=== PATIENT | male | born 1950 | race Caucasian/White ===

== ENCOUNTER 2017-08-31 01:22 | Inpatient (IN) ==
[2017-08-31] MEDS ORDERED: Ondansetron 4 MG/2 ML VIAL IVP ONE (01:41)
[2017-08-31 02:00] LABS: Basophils # 0.1 K/mcL (0.0-0.2); Basophils % 0.7 %; Eosinophils # 0.3 K/mcL (0.0-0.6); Eosinophils % 2.4 %; Hematocrit 35.6 % (37.5-50.1); Hemoglobin 11.7 g/dL (12.9-16.9); Lymphocytes # 0.6 K/mcL (0.6-4.6); Lymphocytes % 5.3 %; Mean Corpuscular HGB Conc 32.9 g/dL (31.6-35.5); Mean Corpuscular Hemoglobin 27.8 pg (28.0-33.3); Mean Corpuscular Volume 84.6 fL (83.0-100.0); Mean Platelet Volume 9.5 fL (9.4-12.4); Monocytes # 1.1 K/mcL (0.0-1.3); Monocytes % 9.8 %; Neutrophils # 9.3 K/mcL (1.6-8.9); Platelet Count 200 K/mcL (140-400); Red Blood Count 4.21 M/mcL (4.19-5.50); Red Cell Distribution Width 13.7 % (11.5-14.5); Segmented Neutrophils % 80.8 %
[2017-08-31 02:02] LABS: Clarity,Urine Cloudy (Clear); Color,Urine Yellow (Yellow)
[2017-08-31 02:03] LABS: Bilirubin,Urine Negative (Negative); Blood,Urine Large (Negative); Glucose,Urine (UA) Normal (Normal); Ketones,Urine Negative (Negative); Leukocyte Esterase,Urine Small (Negative); Nitrite,Urine Negative (Negative); Protein,Urine >=300 mg/dL (Neg-Trace); RBC,Urine TNTC per hpf (0-3); Specific Gravity,Urine 1.018 (1.010-1.025); Squamous Epithelial Cell,Urine Few per lpf (None-Few); Urobilinogen,Urine Normal (Normal); WBC,Urine 15-30 per hpf (0-3)
[2017-08-31 02:04] LABS: Hyaline Casts,Urine None Seen per lpf (None-Few); Mucus,Urine Moderate (Few); Red Blood Cell Casts,Urine Few per lpf (None Seen); Waxy Casts,Urine Few per lpf (None Seen)
[2017-08-31 02:05] LABS: Bacteria,Urine Moderate per hpf (None-Few)
[2017-08-31 02:18] LABS: Albumin 3.5 g/dL (3.5-5.7); Albumin/Globulin Ratio 0.8 (1.1-2.2); Bilirubin,Direct 0.3 mg/dL (0.0-0.2); Bilirubin,Indirect 0.6 mg/dL (0.0-1.2); Bilirubin,Total 0.9 mg/dL (0.3-1.0); Calcium 8.7 mg/dL (8.6-10.3); Globulin 4.4 g/dL (2.4-3.5); Potassium 4.6 mEq/L (3.5-5.1); Total Protein 7.9 g/dL (6.4-8.9)
[2017-08-31] MEDS ORDERED: OXYCODONE Oral CONC 10 MG/0.5 ML ORAL.SYG SL ONE (04:01)
--- NOTE | 2017-08-31 04:28 | Emergency Department Note ---
Disposition Clinical Impression: Acute kidney failure Qualifiers: Acute renal failure type: unspecified Qualified Code(s): N17.9 - Acute kidney failure, unspecified Pneumonia Qualifiers: Pneumonia type: due to unspecified organism Laterality: bilateral Lung location : lower lobe of lung Qualified Code(s): J18.1 - Lobar pneumonia, unspecified organism Disposition: Admitted As Inpatient Condition: Fair Time of Disposition: 06:45 Abdominal Pain HPI - General Chief Complaint: ED Abdominal Pain Stated Complaint: abd pain nausea Time Seen by Provider: 08/31/17 01:40 Source: patient, EMS Nursing Notes Reviewed: Yes Vital Signs Reviewed: Yes - History of Present Illness Pt Subjective Complaint: abdominal pain Onset (ago): day(s) Consistency: Worsening Location: epigastric Pain Scale: 10 Quality: dull Radiation: none Migration to: no migration Worsens with: nothing Context: other (h/o hernia) Associated symptoms: Reports: other (sob). Denies: nausea, vomiting, diarrhea, fever, chills, hematuria Treatments prior to arrival: other (had seen PCP for possible hernia) - Related Data Allergies Allergy/AdvReac Type Severity Reaction Status Date / Time Penicillins AdvReac Hives Verified 08/31/17 01:38 All systems ED: reviewed and negative except as stated. Review of Systems: As Per HPI Constitutional: Denies: fever, chills Eyes: Denies: vision change ENT ED: Denies: throat pain Cardiovascular: Denies: chest pain, palpitations, dyspnea on exertion Respiratory: Reports: cough, dyspnea. Denies: wheezes Gastrointestinal: Reports: as per HPI, constipation. Denies: nausea, vomiting, diarrhea Genitourinary: Denies: urgency, dysuria, frequency, hematuria Musculoskeletal: Denies: back pain, neck pain Integumentary: Denies: rash Neurological: Denies: headache, weakness Psychiatric: Denies: anxiety, depression Endocrine: Denies: fatigue Hematological/Lymphatic: Denies: easy bleeding Allergic/Immunologic: Denies: facial swelling Abdominal Pain PMH - Past Medical History Medical history: Reports: cancer, CHF, COPD, hypertension Psychiatric history: Reports: no psych history - Social History Smoking status: Former smoker Alcohol use: Reports: none Drug use: Reports: none Physical Exam - General Limitations: no limitations General appearance: alert, in no apparent distress - Head Head exam: normocephalic - Eye Eye exam: Present: EOMI, other (left lower ptosis) - ENT ENT exam: mucous membranes moist, other (chronic deformity of left ear) - Expanded ENT Exam Nose exam: negative: rhinorrhea - Neck Neck exam: Present: full ROM - Chest Chest inspection: Present: normal inspection, symmetric chest wall rise - Respiratory Respiratory exam: Present: normal lung sounds bilaterally. Absent: respiratory distress - Cardiovascular Cardiovascular exam: Present: regular rate, normal rhythm - Abdominal Exam Abdominal exam: Present: soft, tenderness Abdominal tenderness: Present: epigastrium - Extremities Exam Extremities exam: Present: normal inspection, full ROM - Back Exam Back exam: Present: full ROM. Absent: CVA tenderness (R), CVA tenderness (L) - Neurological Exam Neurological exam: Present: alert, oriented X3 - Psychiatric Psychiatric exam: Present: normal affect, normal mood - Skin Skin exam: Present: warm, dry, intact, normal color. Absent: rash, cyanosis, diaphoresis Course Course Narrative: Patient is a 67-year-old male that presents with abdominal pain, nausea. He compares it to his hernia pain, but mentions his hernia pain was more right- sided. He mentions he has been evaluated for his abdominal pain by his PCP provider , jamil floyd, last week, and tells me she has plans to follow up with Dr. Wooten in the near future. He mentions his abdominal pain was persisting and inserted to have some shortness of breath which prompted his visit to the emergency department. He mentions he has an intermittent cough, .He mentions it is accompanied some nausea, but denies any vomiting, diarrhea. 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 Workup initiated. Analgesics ordered. - Reevaluation(s) Reevaluation #1: Pt states he feels better after analgesics and antiemetic. Pt is on 02 oxygen here, but not at home. He mentions this is helping his sob. His lab work Consistent with uremia. On discussion with patient again, he denies any known history of kidney disease, urinary symptoms, and does not appear to be altered. Chest x-ray also consistent with pneumonia vs atelectasis. Normal lactic acid. I have ordered blood cultures. Patient discussed with Dr. Bradford, who plan for admission, nephrology consult, and CT scan. Time: 04:28 Reevaluation #2: CT scan shows no evidence of obstruction. Patient discussed with and accepted by hospitalist Dr. Calabrese who agreed with abx, fluids, and requested we all nephrology. He also mentioned he will start bicarb drip. Time: 06:02 - Consultations Consultation #1: Per request of the hospitalist, on-call sider was paged, and I have discussed patient with Dr. Borja. He agreed to see patient later this morning, and was also agreeable for ceftriaxone and azithromycin for antibiotic coverage of pneumonia. Time: 06:12 Vital Signs Temperature 98.1 F 08/31/17 01:27 Pulse Rate 80 08/31/17 01:27 Respiratory Rate 18 08/31/17 01:27 Blood Pressure 138/110 08/31/17 01:27 O2 Sat by Pulse Oximetry 93 08/31/17 01:27 Temperature 98 F 08/31/17 06:28 Pulse Rate 73 08/31/17 03:33 Respiratory Rate 18 08/31/17 06:28 Blood Pressure 134/82 08/31/17 06:28 O2 Sat by Pulse Oximetry 94 08/31/17 03:33 Oxygen Delivery Oxygen Delivery Room Air Abdominal Pain - MDM Narrative Medical decision making narrative: Patient is a 67-year-old that presented with complaint of abdominal pain shortness of breath. He denied any chest pain, diaphoresis or exertional component of his shortness of breath. Chest x-ray is concerning for pneumonia. Additionally workup showed acute kidney failure. Patient is alert and oriented 3. He is not known to have past medical history of renal disease. Blood cultures and lactic acid were ordered. Patient received a dose of ceftriaxone to cover community-acquired pneumonia and possible UTi. Patient was discussed with attending Dr. josé miguel Tinajero who agreed with workup and evaluation and disposition who also had face time with patient. Patient was accepted to hospitalist staff, and also contacted on-call sider who agreed to see patient later today. Chest X-Ray 08/31/17 01:42 IMPRESSION: Bibasilar atelectasis and/or pneumonia. D/ / Gerald Amaral MD / Gerald Amaral MD Interpreting Provider: Gerald Amaral MD Laboratory Tests 08/31/17 08/31/17 08/31/17 01:41 01:41 01:43 WBC 11.5 H RBC 4.21 Hgb 11.7 L Hct 35.6 L MCV 84.6 MCH 27.8 L MCHC 32.9 RDW 13.7 Plt Count 200 MPV 9.5 Immature Gran % 1.0 Seg Neutrophils % 80.8 Lymphocytes % 5.3 Monocytes % 9.8 Eosinophils % 2.4 Basophils % 0.7 Neutrophils # 9.3 H Lymphocytes # 0.6 Monocytes # 1.1 Eosinophils # 0.3 Basophils # 0.1 Sodium 132 L Potassium 4.6 Chloride 98 Carbon Dioxide 18 L BUN 127 H Creatinine 14.78 H Est GFR ( Amer) 4 L Est GFR (Non-Af Amer) 3 L BUN/Creatinine Ratio 9 Glucose 99 Calculated Osmolality 315 H Lactic Acid 0.7 Calcium 8.7 Total Bilirubin 0.9 Direct Bilirubin 0.3 H Indirect Bilirubin 0.6 AST 10 L ALT 10 Alkaline Phosphatase 86 Serum Total Protein 7.9 Albumin 3.5 Globulin 4.4 H Albumin/Globulin Ratio 0.8 L Amylase 35 Lipase 32 Ur Specimen Adequacy Urine Color Urine Clarity Urine pH Ur Specific [employer] Urine Protein Urine Glucose (UA) Urine Ketones Urine Blood Urine Nitrite Urine Bilirubin Urine Urobilinogen Ur Leukocyte Esterase Urine Microscopic RBC Urine Microscopic WBC Ur Squamous Epith Cells Urine Bacteria Hyaline Casts Waxy Casts RBC Casts Urine Mucus Ur Culture Indicated? 08/31/17 01:48 WBC RBC Hgb Hct MCV MCH MCHC RDW Plt Count MPV Immature Gran % Seg Neutrophils % Lymphocytes % Monocytes % Eosinophils % Basophils % Neutrophils # Lymphocytes # Monocytes # Eosinophils # Basophils # Sodium Potassium Chloride Carbon Dioxide BUN Creatinine Est GFR ( Amer) Est GFR (Non-Af Amer) BUN/Creatinine Ratio Glucose Calculated Osmolality Lactic Acid Calcium Total Bilirubin Direct Bilirubin Indirect Bilirubin AST ALT Alkaline Phosphatase Serum Total Protein Albumin Globulin Albumin/Globulin Ratio Amylase Lipase Ur Specimen Adequacy See below A Urine Color Yellow Urine Clarity Cloudy A Urine pH 6.0 Ur Specific [employer] 1.018 Urine Protein >=300 H Urine Glucose (UA) Normal Urine Ketones Negative Urine Blood Large H Urine Nitrite Negative Urine Bilirubin Negative Urine Urobilinogen Normal Ur Leukocyte Esterase Small H Urine Microscopic RBC TNTC H Urine Microscopic WBC 15-30 H Ur Squamous Epith Cells Few Urine Bacteria Moderate H Hyaline Casts None Seen Waxy Casts Few H RBC Casts Few H Urine Mucus Moderate H Ur Culture Indicated? YES A - Lab Data Lab results reviewed: Yes I reviewed the patient's lab results. Result diagrams: 08/31/17 01:41 08/31/17 01:41 Lab Results 08/31/17 08/31/17 08/31/17 Range/Units 01:41 01:41 01:43 WBC 11.5 H (4.3-11.1) K/mcL RBC 4.21 (4.19-5.50) M/mcL Hgb 11.7 L (12.9-16.9) g/dL Hct 35.6 L (37.5-50.1) % MCV 84.6 (83.0-100.0) fL MCH 27.8 L (28.0-33.3) pg MCHC 32.9 (31.6-35.5) g/dL RDW 13.7 (11.5-14.5) % Plt Count 200 (140-400) K/mcL MPV 9.5 (9.4-12.4) fL Immature Gran % 1.0 (0-4) % Seg Neutrophils % 80.8 % Lymphocytes % 5.3 % Monocytes % 9.8 % Eosinophils % 2.4 % Basophils % 0.7 % Neutrophils # 9.3 H (1.6-8.9) K/mcL Lymphocytes # 0.6 (0.6-4.6) K/mcL Monocytes # 1.1 (0.0-1.3) K/mcL Eosinophils # 0.3 (0.0-0.6) K/mcL Basophils # 0.1 (0.0-0.2) K/mcL Sodium 132 L (136-145) mEq/L Potassium 4.6 (3.5-5.1) mEq/L Chloride 98 (98-107) mEq/L Carbon Dioxide 18 L (23-29) mEq/L BUN 127 H (8-23) mg/dL Creatinine 14.78 H (0.70-1.30) mg/dL Est GFR ( Amer) 4 L (> 60) Est GFR (Non-Af Amer) 3 L (> 60) BUN/Creatinine Ratio 9 (6-26) Glucose 99 (70-105) mg/dL Calculated Osmolality 315 H (280-300) Lactic Acid 0.7 (0.5-2.2) mmol/L Calcium 8.7 (8.6-10.3) mg/dL Total Bilirubin 0.9 (0.3-1.0) mg/dL Direct Bilirubin 0.3 H (0.0-0.2) mg/dL Indirect Bilirubin 0.6 (0.0-1.2) mg/dL AST 10 L (13-39) Units/L ALT 10 (7-52) Units/L Alkaline Phosphatase 86 (34-104) Units/L Serum Total Protein 7.9 (6.4-8.9) g/dL Albumin 3.5 (3.5-5.7) g/dL Globulin 4.4 H (2.4-3.5) g/dL Albumin/Globulin Ratio 0.8 L (1.1-2.2) Amylase 35 (29-103) Units/L Lipase 32 (11-82) Units/L Ur Specimen Adequacy Urine Color (Yellow) Urine Clarity (Clear) Urine pH (5.0-8.0) pH Units Ur Specific [employer] (1.010-1.025) Urine Protein (Neg-Trace) mg/dL Urine Glucose (UA) (Normal) mg/dL Urine Ketones (Negative) mg/dL Urine Blood (Negative) Urine Nitrite (Negative) Urine Bilirubin (Negative) Urine Urobilinogen (Normal) mg/dL Ur Leukocyte Esterase (Negative) Urine Microscopic RBC (0-3) per hpf Urine Microscopic WBC (0-3) per hpf Ur Squamous Epith Cells (None-Few) per lpf Urine Bacteria (None-Few) per hpf Hyaline Casts (None-Few) per lpf Waxy Casts (None Seen) per lpf RBC Casts (None Seen) per lpf Urine Mucus (Few) Ur Culture Indicated? (NO) 08/31/17 Range/Units 01:48 WBC (4.3-11.1) K/mcL RBC (4.19-5.50) M/mcL Hgb (12.9-16.9) g/dL Hct (37.5-50.1) % MCV (83.0-100.0) fL MCH (28.0-33.3) pg MCHC (31.6-35.5) g/dL RDW (11.5-14.5) % Plt Count (140-400) K/mcL MPV (9.4-12.4) fL Immature Gran % (0-4) % Seg Neutrophils % % Lymphocytes % % Monocytes % % Eosinophils % % Basophils % % Neutrophils # (1.6-8.9) K/mcL Lymphocytes # (0.6-4.6) K/mcL Monocytes # (0.0-1.3) K/mcL Eosinophils # (0.0-0.6) K/mcL Basophils # (0.0-0.2) K/mcL Sodium (136-145) mEq/L Potassium (3.5-5.1) mEq/L Chloride (98-107) mEq/L Carbon Dioxide (23-29) mEq/L BUN (8-23) mg/dL Creatinine (0.70-1.30) mg/dL Est GFR ( Amer) (> 60) Est GFR (Non-Af Amer) (> 60) BUN/Creatinine Ratio (6-26) Glucose (70-105) mg/dL Calculated Osmolality (280-300) Lactic Acid (0.5-2.2) mmol/L Calcium (8.6-10.3) mg/dL Total Bilirubin (0.3-1.0) mg/dL Direct Bilirubin (0.0-0.2) mg/dL Indirect Bilirubin (0.0-1.2) mg/dL AST (13-39) Units/L ALT (7-52) Units/L Alkaline Phosphatase (34-104) Units/L Serum Total Protein (6.4-8.9) g/dL Albumin (3.5-5.7) g/dL Globulin (2.4-3.5) g/dL Albumin/Globulin Ratio (1.1-2.2) Amylase (29-103) Units/L Lipase (11-82) Units/L Ur Specimen Adequacy See below A Urine Color Yellow (Yellow) Urine Clarity Cloudy A (Clear) Urine pH 6.0 (5.0-8.0) pH Units Ur Specific [employer] 1.018 (1.010-1.025) Urine Protein >=300 H (Neg-Trace) mg/dL Urine Glucose (UA) Normal (Normal) mg/dL Urine Ketones Negative (Negative) mg/dL Urine Blood Large H (Negative) Urine Nitrite Negative (Negative) Urine Bilirubin Negative (Negative) Urine Urobilinogen Normal (Normal) mg/dL Ur Leukocyte Esterase Small H (Negative) Urine Microscopic RBC TNTC H (0-3) per hpf Urine Microscopic WBC 15-30 H (0-3) per hpf Ur Squamous Epith Cells Few (None-Few) per lpf Urine Bacteria Moderate H (None-Few) per hpf Hyaline Casts None Seen (None-Few) per lpf Waxy Casts Few H (None Seen) per lpf RBC Casts Few H (None Seen) per lpf Urine Mucus Moderate H (Few) Ur Culture Indicated? YES A (NO) - Radiology Data Radiology results reviewed: Yes I reviewed the patient's radiology results. Attestation Statement - Attestation Attestation: I have personally performed a face to face evaluation on this patient. I have reviewed and agree with the care plan. History and Exam by me shows: Uremia and acute renal failure in the setting of possible pneumonia. Will avoid nephrotoxic antibiotics. We will obtain blood cultures, consult nephrology, obtain advanced imaging to rule out obstructive causes of renal failure. I spent greater than 35 minutes of critical care time caring for patient suffering from acute renal failure with uremia this was excluding billable procedures.
[2017-08-31] MEDS ORDERED: cefTRIAXone 1,000 MG in Water for inj. (sterile) 20 ML 10 ML IVP ONE (06:28)
[2017-08-31] MEDS ORDERED: Sodium Bicarbonate 75 MEQ in D5% in 0.45% NACL 1,000 ML IVC SCH (06:30)
--- NOTE | 2017-08-31 08:32 | Nephrology Consult Note ---
Date of Encounter: 08/31/17 Time of Encounter: 08:30 Assessment and Plan (1) Acute kidney failure Current Visit: Yes Status: Acute The patient presents with advanced renal failure. He does have a serum creatinine from April 2017 that was 1.4 and it was 1.5 in October 2016. Therefore he does have some underlying chronic kidney disease with what appears to be an acute component. Patient's urinalysis suggests proteinuria as well as hematuria. Therefore, regular disease cannot be ruled out. This may be related to progressive glomerular disease or rapidly progressive glomerular disease. Patient does have some uremic symptoms consisting of nausea and anorexia. CT scan does not suggest any post renal obstructive findings. Evaluation will consist of a renal ultrasound, serologic evaluation for glomerular disease, urine sediment exam, patient may require renal biopsy depending on the urine sediment exam. Patient should be placed on IV fluids to see if this needs any improvement in his renal function. Patient may require dialysis if he fails to improve. Qualifiers: Acute renal failure type: with other specified pathological lesion Qualified Code(s): N17.8 - Other acute kidney failure History of Present Illness - History of Present Illness This is a 67-year-old male who presented to the emergency room with a one-week history of abdominal pain and nausea. Patient was noted to have a creatinine of 14.78. Patient denies any previous history of renal disease. There is one previous creatinine level of 1.6 from May 2016. Patient receives his primary care in [facility]. Therefore no other labs are currently available. Patient denies diabetes. He does have a history of hypertension. He denies any history of hematuria proteinuria or renal stone disease recurring urinary tract infections or difficulty in emptying his bladder. He denies taking nonsteroidal anti-inflammatory agents on a chronic basis. He denies any nocturia or lower extremity swelling. He has had anorexia for the past several weeks. He has had nausea but no vomiting. His abdominal pain has been located in the epigastric area left lower quadrant with radiation to his left shoulder. In the emergency room shows some left perinephric stranding. There is an abdominal aortic aneurysm 4.3 x 4.4 cm. Patient's past medical history significant for skin cancer including melanoma, hypertension, and COPD. Patient is no longer a smoker. Patient denies any family history of renal disease other than renal stone disease. Chest x-ray shows bibasilar atelectasis versus pneumonia. Patient does admit to a chronic cough with occasional white sputum production. He denies any fevers or chills. Past Med Surg Social Fam HX - Past Medical History Medical history: cancer, CHF, COPD, hypertension Psychiatric history: no psych history - Social History Smoking Status: Former smoker Smokeless Tobacco Status: Yes Alcohol use: none Drug use: none Medications and Allergies 3 Allergy/AdvReac Type Severity Reaction Status Date / Time Penicillins AdvReac Hives Verified 08/31/17 01:38 Review of Systems Constitutional: no excessive sweating, no weight loss Eyes: bilateral: blurred vision (patient denies), diplopia (patient denies) Nose, mouth and throat: no dizziness, no headache(s) Cardiovascular: as per HPI, dyspnea on exertion Respiratory: as per HPI, cough, dyspnea, dyspnea on exertion Gastrointestinal: as per HPI, abdominal pain, nausea Genitourinary Male: as per HPI Musculoskeletal: no muscle weakness, no numbness Integumentary: no hirsutism, no striae Neurological: as per HPI Psychiatric: no depression, no difficulty concentrating Endocrine: as per HPI Hematologic/Lymphatic: no easy bruising, no lymphadenopathy Exam - Vital Signs Vital signs: Initial Vital Signs Temp Pulse Resp BP Pulse Ox 98.1 F 80 18 138/110 93 08/31/17 01:27 08/31/17 01:27 08/31/17 01:27 08/31/17 01:27 08/31/17 01:27 Vital Signs - Last 8 Hours Temp Pulse Resp BP Pulse Ox 08/31/17 07:12 97.8 F 83 17 108/96 90 08/31/17 06:28 98 F 18 134/82 - General Appearance Exam: Patient is alert and oriented. He is in no acute distress. Blood pressure is 108/96. Neck is supple. Lungs diminished breath sounds otherwise clear. Heart regular rate and rhythm with a 2/6 systolic ejection murmur. There is no pericardial friction rub. Abdomen shows normal bowel sounds. There is no guarding or rigidity. Lower extremities show no peripheral edema. There has been partial surgical removal of the patient's left ear. Results - Lab Results 08/31/17 01:41 08/31/17 01:41 Most recent lab results Calcium 8.7 mg/dL (8.6-10.3) 08/31/17 01:41 Consult Discharge Plan - Plan Referrals: NONE,PCP [Primary Care Provider] -
[2017-08-31] MEDS: Sodium Bicarbonate 75 MEQ in D5% in 0.45% NACL 1,000 ML IVC SCH ×2 (08:37→20:32)
--- NOTE | 2017-08-31 09:14 | Internal Med History&Physical ---
Date of Encounter: 08/31/17 Time of Encounter: 08:45 Internal Medicine - H&P: HPI Chief complaint: Abdominal pain and decreased UO Admitted From: Emergency Dept Plans for Post Hospital Care: Home History of present illness: Mr. Castillo is a 67 year old man with one week history of left-sided abdominal pain, nausea w/o vomiting and decreased oral intake who presented in the ER overnight. He was found to have ARF with a Cr of 14.78. He has no prior history of renal disease. His CT-Abd/Pelvis shows mild nonspecific perinephric stranding of both kidneys but grater on the left. He denies fevers,chills, disuria, urinary urgency or frequency,b ut appears to have a UTI. Rocephin was started in the ER, but d/c because of PCN allergy. He was c/o mild sob last week and his CXT and the CT scan suggest a possible PNA so Levaquin was started. he's already been seen by nephrology and a plan is forthcoming. His additional comorbid conditions include COPD, obesity and HTN. Past Med Surg Social Fam HX - Past Medical History Medical history: cancer, CHF, COPD, hypertension Psychiatric history: no psych history - Social History Smoking Status: Former smoker Smokeless Tobacco Status: Yes Alcohol use: none Drug use: none - Family History Mother Hx Family Endocrine Disorder: Yes (DM) Internal Medicine - H&P: Meds 3 Allergy/AdvReac Type Severity Reaction Status Date / Time Penicillins AdvReac Hives Verified 08/31/17 01:38 All Systems PM: A 10-system review of systems was performed and is negative for pertinent findings except as documented above in the HPI. - Constitutional Constitutional: anorexia, lethargy, weakness, no chills, no fever(s) - EENT Eyes: no blurry vision, no pain, no photophobia Nose, mouth and throat: no bleeding gums, no dysphagia, no mouth pain - Cardiovascular Cardiovascular ROS IM: no chest pain, no diaphoresis, no dyspnea on exertion, no edema - Respiratory Respiratory: wheezing, no hemoptysis - Gastrointestinal Gastrointestinal: abdominal pain, nausea, no diarrhea, no melena, no vomiting - Genitourinary Genitourinary ROS male: other, no hematuria, no nocturia, no urinary frequency, no urinary urgency Additional comments: Decreased UO - Musculoskeletal Musculoskeletal ROS IM: arthralgias, muscle weakness, myalgias - Integumentary Integumentary IM: no erythema, no rash - Neurological Neurological ROS: no abnormal hearing, no abnormal speech, no disequilibrium, no focal weakness, no paresthesias - Psychiatric Psychiatric: no confusion, no depression - Constitutional Vitals: Temp Pulse Resp BP Pulse Ox 97.8 F 83 17 108/96 90 08/31/17 07:12 08/31/17 07:12 08/31/17 07:12 08/31/17 07:12 08/31/17 07:12 General appearance: Present: A&O X 3, pleasant, no acute distress, answers questions appropriately - Head Head exam: Present: atraumatic, normocephalic - Eye Eye exam: Present: PERRL, conjuntiva pink, sclera anicteric Pupils: Present: PERRL - Neck Neck exam general surgery: Present: trachea midline. Absent: lymphadenopathy - Respiratory Respiratory exam: Present: wheezes. Absent: accessory muscle use, CTAB, rales, rhonchi, stridor - Cardiovascular Cardiovascular exam: Present: RRR, +S1, +S2. Absent: diastolic murmur, gallop, rubs, systolic murmur - GI/Abdominal GI/Abdominal exam: Present: normal bowel sounds, soft, no peritoneal signs. Absent: distended, guarding, rebound, rigid, tenderness - Extremities Exam Extremities exam: Present: warm, radial pulses palpable and symmetrical. Absent : calf tenderness, cyanotic, pedal edema - Neurological Exam Neurological exam: Present: CN II-XII intact, oriented X3, no focal deficits. Absent: pronater drift, facial droop, speech deficit - Psychiatric Psychiatric exam: Present: normal affect, normal mood - Skin Skin exam: Present: dry, intact Internal Med - H&P Results - Labs CBC & Chem 7: 08/31/17 01:41 08/31/17 01:41 - Assessment and plan (1) Acute kidney failure Current Visit: Yes Status: Acute Assessment and plan: Nephrology consulted Renal U/S ordered Multiple labs ordered by nephrology Qualifiers: Acute renal failure type: with other specified pathological lesion Qualified Code(s): N17.8 - Other acute kidney failure (2) COPD (chronic obstructive pulmonary disease) with chronic bronchitis Current Visit: No Status: Chronic Assessment and plan: No acute exacerbation, but mild wheezing on exam. Continue bronchodilators. (3) Essential hypertension Current Visit: No Status: Chronic Assessment and plan: Continue home medications. (4) Obesity (BMI 35.0-39.9 without comorbidity) Current Visit: Yes Status: Acute (5) Obesity (BMI 30-39.9) Current Visit: Yes Status: Acute Assessment and plan: Pursue weight loss after d/c - Time Spent With Patient Total time spent is greater than 50% in coordination of care (as documented) at patient's floor/unit and/or counseling patient: Greater than 35 minutes
[2017-08-31] MEDS ORDERED: Ipratropium/Albuterol Neb 3 ML IH PRN (09:39)
[2017-08-31] MEDS ORDERED: Levofloxacin 750 MG/150 ML 750 MG/150 ML BAG IVPB ONE (10:00)
[2017-08-31 12:58] LABS: Hepatitis A Antibody IgM Nonreactive (Nonreactive); Hepatitis B Core IgM Nonreactive (Nonreactive); Hepatitis B Surface Antigen Nonreactive (Nonreactive); Hepatitis C Virus Antibody Nonreactive (Nonreactive)
[2017-09-01 02:01] LABS: Basophils % 0.4 %; Eosinophils # 0.3 K/mcL (0.0-0.6); Eosinophils % 2.6 %; Hematocrit 28.2 % (37.5-50.1); Immature Granulocytes % 0.8 % (0-4); Lymphocytes # 0.5 K/mcL (0.6-4.6); Lymphocytes % 4.4 %; Mean Corpuscular HGB Conc 32.3 g/dL (31.6-35.5); Mean Corpuscular Hemoglobin 27.2 pg (28.0-33.3); Mean Corpuscular Volume 84.2 fL (83.0-100.0); Mean Platelet Volume 9.7 fL (9.4-12.4); Monocytes # 1.2 K/mcL (0.0-1.3); Monocytes % 10.7 %; Neutrophils # 9.2 K/mcL (1.6-8.9); Platelet Count 165 K/mcL (140-400); Red Blood Count 3.35 M/mcL (4.19-5.50); Red Cell Distribution Width 13.8 % (11.5-14.5); Segmented Neutrophils % 81.1 %
[2017-09-01 02:02] LABS: Hemoglobin 9.1 g/dL (12.9-16.9)
[2017-09-01 02:26] LABS: Alanine Aminotransferase 8 Units/L (7-52); Albumin 2.9 g/dL (3.5-5.7); Albumin/Globulin Ratio 0.8 (1.1-2.2); Alkaline Phosphatase 78 Units/L (34-104); Aspartate Amino Transferase 8 Units/L (13-39); Bilirubin,Total 0.6 mg/dL (0.3-1.0); Blood Urea Nitrogen > 130 mg/dL (8-23); Calcium 7.8 mg/dL (8.6-10.3); Carbon Dioxide 22 mEq/L (23-29); Chloride 94 mEq/L (98-107); Globulin 3.8 g/dL (2.4-3.5); Glucose 119 mg/dL (70-105); Potassium 4.4 mEq/L (3.5-5.1); Sodium 131 mEq/L (136-145); Total Protein 6.7 g/dL (6.4-8.9); eGFR For African Americans 4 (> 60); eGFR For Non-African Americans 3 (> 60)
[2017-09-01] MEDS ORDERED: Sodium Bicarbonate 75 MEQ in D5% in 0.45% NACL 1,000 ML IVC SCH (04:00)
[2017-09-01 08:21] LABS: Complement Component 3 123 mg/dL (88-201)
[2017-09-01] MEDS ORDERED: *HR* Heparin 5,000 UNIT/ML VIAL ONE (09:25)
[2017-09-01] MEDS ORDERED: 0.9 % Sodium Chloride 250 ML IVC PRN (09:28)
[2017-09-01] MEDS ORDERED: *HR* Heparin 10,000 UNIT/10 ML VIAL IV PRN (09:28)
[2017-09-01] MEDS ORDERED: 0.9 % Sodium Chloride 1,000 ML PRIME SCH (09:30)
[2017-09-01] MEDS ORDERED: 0.9 % Sodium Chloride 1,000 ML ONE (09:49)
[2017-09-01 10:04] LABS: INR 1.5; Prothrombin Time 16.4 Seconds (9.4-12.1)
--- NOTE | 2017-09-01 10:38 | Internal Med Progress Note ---
Addendum entered and electronically signed by Padma Wolfe DO 09/01/17 16:50: - Assessment and plan (1) Acute kidney failure Current Visit: Yes Status: Acute Assessment and plan: - SCr 14.78 / eGFR 3 on admission. Per nephrology note, patient has SCr worsen compared to basline SCr ~1.6. - Unknown etiology at this time. Suspected GM given significant proteinuria and hematuria on UA. - CT A/P and retroperitoneal US found no evidence of obstructive uropathy or hydronephrosis. - Viral hepatitis panel negative for hepatitis A, B & C. - Pending EMILI, ANCA, complement. - Nephrology on board and appreciate input. - Patient had temporarily dialysis catheter placed today and nephrology plans to have hemodialysis today. - NPO after midnight for renal biopsy tomorrow. - Avoid nephrotoxin. - Continue to monitor renal function and electrolytes closely. (2) Uremia Current Visit: Yes Status: Suspected Assessment and plan: - With nausea, vomiting and abdominal pain on initial presentation. - Improves as those symptoms being better controlled. (3) Brochiolitis Current Visit: Yes Status: Acute Assessment and plan: - CT A/P on 08/31/17 showed tree-in-bud type infiltrate at the lung bases concerning of an infectious bronchiolitis. - Continue IV levofloxacin (Day 2). Plan to treat for at least 5 days. (4) COPD Current Visit: Yes Status: Chronic Assessment and plan: - Scheduled bronchodilators and supplemental oxygen. No steroid at this time given that may affect renal biopsy result. (5) HTN (hypertension) Current Visit: No Status: Chronic Assessment and plan: - Blood pressure within normal range. Qualifiers: Hypertension type: essential hypertension Qualified Code(s): I10 - Essential (primary) hypertension (6) DVT prophylaxis Current Visit: No Status: Acute Assessment and plan: - Continue EPCD as mechanical DVT prophylaxis. - Constitutional General appearance: Present: cooperative, no acute distress, A&O X 3, answers questions appropriately - Head Head exam: Present: normal inspection - Eye Eye exam: Present: EOMI - Neck Neck exam general surgery: Present: normal inspection, trachea midline - Respiratory Respiratory exam: Present: Diffuse wheezes - Cardiovascular Cardiovascular exam: Present: RRR, +S1, +S2 - GI/Abdominal GI/Abdominal exam: Present: normal bowel sounds, soft. Absent: tenderness - Extremities Exam Extremities exam: Absent: cyanotic, pedal edema - Neurological Exam Neurological exam: Present: alert, no focal deficits. Absent: facial droop, speech deficit - Skin Skin exam: Present: dry, warm Original Note: <Padma Wolfe - Last Filed: 09/01/17 16:47> Date of Encounter: 09/01/17 Time of Encounter: 09:45 - Time Spent With Patient Total time spent is greater than 50% in coordination of care (as documented) at patient's floor/unit and/or counseling patient: - Subjective Interval history: Patient was seen and examined this morning. Patient reports feeling better compared to yesterday and no significant abdominal pain. Patient denies fever, chills, chest pain, nausea, vomiting. Patient does notice reduction in urine output recently. - Constitutional Vitals: Temp Pulse Resp BP Pulse Ox 98.3 F 83 18 132/85 93 09/01/17 08:06 09/01/17 08:06 09/01/17 08:06 09/01/17 08:06 09/01/17 08:06 General appearance: Present: A&O X 3, pleasant, no acute distress, answers questions appropriately Internal Medicine: Result - Labs CBC & Chem 7: 09/01/17 01:41 09/01/17 01:41 Labs: Short CBC 09/01/17 Range/Units 01:41 WBC 11.4 H (4.3-11.1) K/mcL Hgb 9.1 L D (12.9-16.9) g/dL Hct 28.2 L (37.5-50.1) % Plt Count 165 (140-400) K/mcL Neutrophils # 9.2 H (1.6-8.9) K/mcL BMP 09/01/17 01:41 Sodium 131 L Potassium 4.4 Chloride 94 L Carbon Dioxide 22 L BUN > 130 H Creatinine 15.66 H Glucose 119 H Calcium 7.8 L Liver Function 09/01/17 Range/Units 01:41 Total Bilirubin 0.6 (0.3-1.0) mg/dL AST 8 L (13-39) Units/L ALT 8 (7-52) Units/L Alkaline Phosphatase 78 (34-104) Units/L Albumin 2.9 L (3.5-5.7) g/dL - ABG Interpretation ABG results: PT/INR, D-dimer PT 16.4 Seconds (9.4-12.1) H 09/01/17 09:48 - Impressions Impressions Retroperitoneum Ultrasound 08/31/17 15:00 IMPRESSION: No hydronephrosis identified. Findings consistent with a subcentimeter right renal cyst. D/ / Nitin Reese / Nitin Reese Interpreting Provider: Nitin Reese Chest X-Ray 09/01/17 09:27 IMPRESSION: No pneumothorax status post right IJ central venous catheter placement. Stable mild patchy airspace opacities right more than left, which may be on the basis of atelectasis or infiltrates. COPD. D/ / 09/01/2017 09:57:44 Nitin Field MD / kian Interpreting Provider: Nitin Field MD Consult Discharge Plan - Plan Referrals: NONE,PCP [Primary Care Provider] - <Haider Blanca - Last Filed: 09/01/17 18:56> Date of Encounter: 09/01/17 - Assessment and plan (1) Respiratory failure Current Visit: Yes Status: Acute Assessment and plan: Pt currently hypoxic and requiring 8 liters oxygen. Some wheezing noted. Qualifiers: Chronicity: acute Respiratory failure complication: hypoxia Qualified Code(s): J96.01 - Acute respiratory failure with hypoxia (2) Acute kidney failure Current Visit: Yes Status: Acute Qualifiers: Acute renal failure type: with other specified pathological lesion Qualified Code(s): N17.8 - Other acute kidney failure (3) Glomerulonephritis Current Visit: Yes Status: Suspected (4) Bronchiolitis Current Visit: Yes Status: Acute (5) COPD (chronic obstructive pulmonary disease) with chronic bronchitis Current Visit: No Status: Chronic (6) Essential hypertension Current Visit: No Status: Chronic (7) Obesity (BMI 35.0-39.9 without comorbidity) Current Visit: Yes Status: Acute - Time Spent With Patient Total time spent is greater than 50% in coordination of care (as documented) at patient's floor/unit and/or counseling patient: - Constitutional Vitals: Temp Pulse Resp BP Pulse Ox 97.6 F 90 16 135/97 91 09/01/17 15:25 09/01/17 15:25 09/01/17 16:39 09/01/17 15:25 09/01/17 16:39 Internal Medicine: Result - Labs CBC & Chem 7: 09/01/17 01:41 09/01/17 01:41 Labs: Short CBC 09/01/17 Range/Units 01:41 WBC 11.4 H (4.3-11.1) K/mcL Hgb 9.1 L D (12.9-16.9) g/dL Hct 28.2 L (37.5-50.1) % Plt Count 165 (140-400) K/mcL Neutrophils # 9.2 H (1.6-8.9) K/mcL BMP 09/01/17 01:41 Sodium 131 L Potassium 4.4 Chloride 94 L Carbon Dioxide 22 L BUN > 130 H Creatinine 15.66 H Glucose 119 H Calcium 7.8 L Liver Function 09/01/17 Range/Units 01:41 Total Bilirubin 0.6 (0.3-1.0) mg/dL AST 8 L (13-39) Units/L ALT 8 (7-52) Units/L Alkaline Phosphatase 78 (34-104) Units/L Albumin 2.9 L (3.5-5.7) g/dL - ABG Interpretation ABG results: PT/INR, D-dimer PT 16.4 Seconds (9.4-12.1) H 09/01/17 09:48 - Impressions Impressions Guidance Needle Placement Ultrasound 09/01/17 00:00 IMPRESSION: Successful ultrasound and fluoroscopy guided non-tunneled hemodialysis catheter placement. D/ / 09/01/2017 12:22:12 Vivian Dubon MD / [email or web address] Interpreting Provider: Vivian Dubon MD Insertion Non-Tunneled Catheter 09/01/17 00:00 IMPRESSION: Successful ultrasound and fluoroscopy guided non-tunneled hemodialysis catheter placement. D/ / 09/01/2017 12:22:12 Vivian Dubon MD / kian Interpreting Provider: Vivian Dubon MD Chest X-Ray 09/01/17 09:27 IMPRESSION: No pneumothorax status post right IJ central venous catheter placement. Stable mild patchy airspace opacities right more than left, which may be on the basis of atelectasis or infiltrates. COPD. D/ / 09/01/2017 09:57:44 Nitin Field MD / kian Interpreting Provider: Nitin Field MD - Attending Attestation I examined this patient and my medical decision-making was reviewed with the Resident Physician on 09/01/17. I agree with the documented findings, disposition and treatment plan as described except to the extent set forth below. Mr Castillo is currently admitted with acute renal failure most likely due to a glomerulonephritis. He remains high risk due to the potential for worsening clinical status. Mr Castillo is having some wheezing and cough. No fever. Says his throat is sore from "tube." No diarrhea. Still has some abd discomfort he attributes to a hernia. Exam alert Mod distress Mucus membranes dry Heart tachy and regular Lungs with wheeze noted - worse on R Abd soft Edema present I/P 1. Acute renal failure - most likely a GN. Dialysis today. Renal biopsy tomorrow. 2. Bronchiolitis - holding steroids today. May start tomorrow. Supportive care Further diagnoses and plan as above.
[2017-09-01 10:49] LABS: Hepatitis B Surface Antigen Nonreactive (Nonreactive)
[2017-09-01] MEDS ORDERED: Albuterol 2.5 MG/3 ML NEBULIZER IH PRN (10:49)
[2017-09-01] MEDS ORDERED: predniSONE 20 MG TABLET PO SCH (11:00)
--- NOTE | 2017-09-01 11:50 | Nephrology Progress Note ---
Date of Encounter: 09/01/17 Time of Encounter: 11:05 - Assessment and Plan (1) Acute kidney failure Current Visit: Yes Status: Acute JONATAN in setting of GI losses which could be uremic symptoms superimposed on CKD, baseline creat 1.4-1.6. Renal fct worsening, creat 15.66. Could be progressive renal disease, Significant proteinuria and hematuria. Urine sediment was unremarkable per Dr. Borja, no cellular casts. Consider GN or RPGN. Renal biopsy scheduled for tomorrow. Temp HD catheter placed this morning. Will do HD today. Orders given. Renal US unremarkable. Will continue current IV fluids, decrease rate 50cc/hr. No documented urine output yesterday, 80 cc today. Renal workup initiated, labs pending. Will continue to monitor. Avoid nephrotoxins. Qualifiers: Acute renal failure type: with other specified pathological lesion Qualified Code(s): N17.8 - Other acute kidney failure Subjective Interval history: Resting quietly. Admits some shortness of breath. Denies abdominal pain, did eat breakfast. Objective - Vital Signs Vital signs: Vital Signs Temp Pulse Resp BP Pulse Ox 09/01/17 08:06 98.3 F 83 18 132/85 93 09/01/17 03:15 98.7 F 55 17 153/84 97 09/01/17 00:56 98.5 F 71 17 118/55 97 08/31/17 23:57 98.2 F 82 18 148/88 93 08/31/17 19:52 98.1 F 68 18 128/90 93 08/31/17 16:25 98.0 F 71 17 111/75 95 08/31/17 12:08 97.8 F 71 17 119/71 92 Intake and Output 08/31/17 09/01/17 09/01/17 23:59 07:59 15:59 Intake Total 695 / 695 200 / 200 Output Total 80 / 80 Balance 695 / 695 120 / 120 Intake: IV Fluids 575 / 575 Sodium Bicarbonate 75 MEQ In D5 575 / 575 % And 0.45% Nacl 1000 Ml Bag 1, 000 ML @ 125 mls/hr IVC .CONT CHARLI Rx#:[id number] Oral 120 / 120 200 / 200 Output: Urine 80 / 80 Other: Meal Dinner Breakfast Percent of Meal Consumed 10% 45% # Voids 1 # Urine Diapers 1 Weight 109.225 kg Blood Glucose* 106 Patient Weight 09/01/17 23:59 Weight 109.225 kg - General Appearance General appearance: Present: well-developed, well-nourished, appears started age EENT: Present: mucous membranes moist Neck: Present: no JVD Respiratory: Present: wheezing Cardiology: Present: no edema, regular rate, regular rhythm Dialysis Vascular Access: Venous Catheter Gastrointestinal: Present: normoactive bowel sounds, no tenderness Integumentary: Present: warm and dry Neurologic: Present: alert and oriented x3 - Lab 09/01/17 01:41 09/01/17 01:41 Most recent lab results Calcium 7.8 mg/dL (8.6-10.3) L 09/01/17 01:41 Phosphorus 9.1 mg/dL (2.7-4.5) H 08/31/17 09:31 Consult Discharge Plan - Plan Referrals: NONE,PCP [Primary Care Provider] -
--- NOTE | 2017-09-01 11:51 | IR Procedure Note ---
Date of procedure: 09/01/17 Consent Obtained: Verbal consent Timeout: Correct patient and procedure verified, Correct site verified, Time out performed, Skin prep completed Indications: renal failure Procedure Performed: temp HDC Was there an enrichment assistant present: No Site/Technique: rt IJ Results/Findings: adequate placement Estimated blood loss (cc): 0 Complications: None; Tolerated procedure well Post Procedure Treatment Plan: OK to use Specimen: none
[2017-09-01] MEDS: Ipratropium/Albuterol Neb 3 ML IH SCH ×4 (12:24→23:32)
[2017-09-01] MEDS ORDERED: Acetaminophen 325 MG TABLET PO PRN (14:37)
[2017-09-01] MEDS: Sodium Bicarbonate 75 MEQ in D5% in 0.45% NACL 1,000 ML IVC SCH (15:00)
[2017-09-01 15:22] LABS: Complement Component 4 44 mg/dL (10-40)
[2017-09-01 21:33] LABS: Adenovirus Not Detected (Not Detect); Bordetella Pertussis Not Detected (Not Detect); Chlamydophila pneumoniae Not Detected (Not Detect); Coronavirus 229E Not Detected (Not Detect); Coronavirus HKU1 Not Detected (Not Detect); Coronavirus NL63 Not Detected (Not Detect); Coronavirus OC43 Not Detected (Not Detect); Human Metapneumovirus Not Detected (Not Detect); Human Rhinovirus/Enterovirus Not Detected (Not Detect); Influenza A Subtype 2009 H1 Not Detected (Not Detect); Influenza A Untypeable Not Detected (Not Detect); Influenza B Not Detected (Not Detect); Mycoplasma pneumoniae Not Detected (Not Detect); Parainfluenza Virus 1 Not Detected (Not Detect); Parainfluenza Virus 2 Not Detected (Not Detect); Parainfluenza Virus 3 Not Detected (Not Detect); Parainfluenza Virus 4 Not Detected (Not Detect); Respiratory Syncytial Virus Not Detected (Not Detect)
[2017-09-02 04:46] LABS: Hematocrit 25.7 % (37.5-50.1); Hemoglobin 8.3 g/dL (12.9-16.9); Mean Corpuscular HGB Conc 32.3 g/dL (31.6-35.5); Mean Corpuscular Hemoglobin 27.3 pg (28.0-33.3); Mean Corpuscular Volume 84.5 fL (83.0-100.0); Mean Platelet Volume 10.1 fL (9.4-12.4); Platelet Count 186 K/mcL (140-400); Red Blood Count 3.04 M/mcL (4.19-5.50); Red Cell Distribution Width 14.2 % (11.5-14.5)
[2017-09-02 04:57] LABS: INR 1.5
[2017-09-02 05:05] LABS: Calcium 7.3 mg/dL (8.6-10.3); Potassium 4.3 mEq/L (3.5-5.1)
[2017-09-02] MEDS: Ipratropium/Albuterol Neb 3 ML IH SCH ×6 (05:12→23:22)
[2017-09-02] MEDS ORDERED: 0.9 % Sodium Chloride 2,000 ML ONE (07:19)
[2017-09-02] MEDS ORDERED: *HR* Heparin 10,000 UNIT/10 ML VIAL IV PRN (08:59)
[2017-09-02] MEDS ORDERED: 0.9 % Sodium Chloride 250 ML IVC PRN (08:59)
[2017-09-02] MEDS ORDERED: 0.9 % Sodium Chloride 1,000 ML PRIME SCH (09:00)
--- NOTE | 2017-09-02 09:40 | Internal Med Progress Note ---
<Padma Wolfe - Last Filed: 09/02/17 11:23> Date of Encounter: 09/02/17 Time of Encounter: 08:15 - Assessment and plan (1) Acute kidney failure Current Visit: Yes Status: Acute Assessment and plan: - SCr 14.78 / eGFR 3 on admission. Per nephrology note, patient's basline SCr ~ 1.6 in April 2017. - Unknown etiology at this time. Suspected GM given significant proteinuria and hematuria on UA. - CT A/P and retroperitoneal US found no evidence of obstructive uropathy or hydronephrosis. - Viral hepatitis panel negative for hepatitis A, B & C. - Pending EMILI, ANCA, complement. - Nephrology on board and appreciate input. - Patient had temporarily dialysis catheter placed and received hemodialysis on 09/01/17. - Plan to have renal biopsy and more hemodialysis today. - Avoid nephrotoxin. - Continue to monitor renal function and electrolytes closely. Qualifiers: Acute renal failure type: with other specified pathological lesion Qualified Code(s): N17.8 - Other acute kidney failure (2) Uremia Current Visit: Yes Status: Acute Assessment and plan: - With nausea, vomiting, abdominal pain and some degree of confusion on initial presentation. - Improves as patient's mental status improves and abdominal pain, nausea and vomiting resolved. (3) Bronchiolitis Current Visit: Yes Status: Acute Assessment and plan: - CT A/P on 08/31/17 showed tree-in-bud type infiltrate at the lung bases concerning of an infectious bronchiolitis. - Continue IV levofloxacin (Day 3). Plan to treat for at least 5 days. (4) COPD (chronic obstructive pulmonary disease) with chronic bronchitis Current Visit: No Status: Chronic Assessment and plan: - Scheduled bronchodilators and supplemental oxygen. - Plan to start steroid once patient has renal biopsy done. (5) Essential hypertension Current Visit: No Status: Chronic Assessment and plan: - Blood pressure within normal range most of time. (6) AAA (abdominal aortic aneurysm) Current Visit: Yes Status: Chronic Assessment and plan: - CT A/P on 08/31/17 found a 4.4 cm infrarenal abdominal aortic aneurysm. - Patient will need follow-up with his PCP after discharge for recommended vascular surgery consult and repeat imaging in 6 months to 1 year. Qualifiers: Presence of rupture: without rupture Qualified Code(s): I71.4 - Abdominal aortic aneurysm, without rupture (7) Lung nodule Current Visit: Yes Status: Acute Assessment and plan: - CT A/P on 08/31/17 found a 5 mm noncalcified left lower lobe pulmonary nodule. - Patient will need follow up with his PCP after discharge for possible need of repeat CT chest in 12 months. (8) DVT prophylaxis Current Visit: Yes Status: Acute Assessment and plan: - Continue EPCD as mechanical DVT prophylaxis. - Time Spent With Patient Total time spent is greater than 50% in coordination of care (as documented) at patient's floor/unit and/or counseling patient: - Subjective Interval history: Patient was seen and examined this morning. Patient reports much feeling better compared to yesterday. Patient denies fever, chills, chest pain, abdominal pain , nausea, vomiting. Patient still has minimal urine output. - Constitutional Vitals: Temp Pulse Resp BP Pulse Ox 98.0 F 90 22 144/72 87 09/02/17 07:08 09/02/17 07:08 09/02/17 07:57 09/02/17 07:08 09/02/17 07:57 General appearance: Present: A&O X 3, pleasant, no acute distress, answers questions appropriately Exam: Patient appears to be more oriented compared to yesterday. - Head Head exam: Present: normal inspection - Eye Eye exam: Present: EOMI - Neck Neck exam general surgery: Present: normal inspection, trachea midline Additional comments: Right IJ temporary HD catheter in place. - Respiratory Respiratory exam: Present: CTAB - Cardiovascular Cardiovascular exam: Present: RRR, +S1, +S2 - GI/Abdominal GI/Abdominal exam: Present: normal bowel sounds, soft. Absent: tenderness - Extremities Exam Extremities exam: Absent: cyanotic, pedal edema - Neurological Exam Neurological exam: Present: alert, no focal deficits. Absent: facial droop, speech deficit - Skin Skin exam: Present: dry, warm Internal Medicine: Result - Labs CBC & Chem 7: 09/02/17 04:00 09/02/17 04:20 Labs: Short CBC 09/02/17 Range/Units 04:00 WBC 8.6 (4.3-11.1) K/mcL Hgb 8.3 L (12.9-16.9) g/dL Hct 25.7 L (37.5-50.1) % Plt Count 186 (140-400) K/mcL BMP 09/02/17 04:20 Sodium 132 L Potassium 4.3 Chloride 92 L Carbon Dioxide 28 BUN 91 H Creatinine 12.63 H Glucose 100 Calcium 7.3 L - ABG Interpretation ABG results: PT/INR, D-dimer PT 16.0 Seconds (9.4-12.1) H 09/02/17 04:20 - Impressions Impressions Guidance Needle Placement Ultrasound 09/01/17 00:00 IMPRESSION: Successful ultrasound and fluoroscopy guided non-tunneled hemodialysis catheter placement. D/ / 09/01/2017 12:22:12 Vivian Dubon MD / kian Interpreting Provider: Vivian Dubon MD Insertion Non-Tunneled Catheter 09/01/17 00:00 IMPRESSION: Successful ultrasound and fluoroscopy guided non-tunneled hemodialysis catheter placement. D/ / 09/01/2017 12:22:12 Vivian Dbuon MD / kian Interpreting Provider: Vivian Dubon MD Chest X-Ray 09/01/17 09:27 IMPRESSION: No pneumothorax status post right IJ central venous catheter placement. Stable mild patchy airspace opacities right more than left, which may be on the basis of atelectasis or infiltrates. COPD. D/ / 09/01/2017 09:57:44 Nitin Field MD / kian Interpreting Provider: Nitin Field MD - VTE Documentation of Mechanical Device: Intermittent pneumatic compression device Consult Discharge Plan - Plan Referrals: NONE,PCP [Primary Care Provider] - <Haider Blanca - Last Filed: 09/02/17 18:00> Date of Encounter: 09/02/17 - Assessment and plan (1) Respiratory failure Current Visit: Yes Status: Acute Qualifiers: Chronicity: acute Respiratory failure complication: hypoxia Qualified Code(s): J96.01 - Acute respiratory failure with hypoxia (2) Acute kidney failure Current Visit: Yes Status: Acute Qualifiers: Acute renal failure type: with other specified pathological lesion Qualified Code(s): N17.8 - Other acute kidney failure (3) Glomerulonephritis Current Visit: Yes Status: Suspected (4) Bronchiolitis Current Visit: Yes Status: Acute (5) COPD (chronic obstructive pulmonary disease) with chronic bronchitis Current Visit: No Status: Chronic (6) Essential hypertension Current Visit: No Status: Chronic (7) Obesity (BMI 35.0-39.9 without comorbidity) Current Visit: Yes Status: Acute - Time Spent With Patient Total time spent is greater than 50% in coordination of care (as documented) at patient's floor/unit and/or counseling patient: - Constitutional Vitals: Temp Pulse Resp BP Pulse Ox 98.4 F 94 22 129/74 89 09/02/17 15:58 09/02/17 15:58 09/02/17 16:15 09/02/17 15:58 09/02/17 16:15 Internal Medicine: Result - Labs CBC & Chem 7: 09/02/17 04:00 09/02/17 04:20 Labs: Short CBC 09/02/17 Range/Units 04:00 WBC 8.6 (4.3-11.1) K/mcL Hgb 8.3 L (12.9-16.9) g/dL Hct 25.7 L (37.5-50.1) % Plt Count 186 (140-400) K/mcL BMP 09/02/17 04:20 Sodium 132 L Potassium 4.3 Chloride 92 L Carbon Dioxide 28 BUN 91 H Creatinine 12.63 H Glucose 100 Calcium 7.3 L - ABG Interpretation ABG results: PT/INR, D-dimer PT 16.0 Seconds (9.4-12.1) H 09/02/17 04:20 - Impressions Impressions Renal Biopsy CT 09/02/17 00:00 IMPRESSION: Successful CT guided random kidney core needle biopsy. D/ / Vladimir Cooper MD / Vladimir Cooper MD Interpreting Provider: Vladimir Cooper MD - Attending Attestation I examined this patient and my medical decision-making was reviewed with the Resident Physician on 09/02/17. I agree with the documented findings, disposition and treatment plan as described except to the extent set forth below. Mr Castillo is currently admitted for acute renal failure presumed due to GN. He is to have renal biopsy today. He remains moderate to high risk due to potential for worsening clinical status. Mr Castillo appears to be feeling better today. He is feeling less abd pain. No fever or chills. Less dyspnea though still on 8 liters. No GI issues. Exam Alert Comfortable Mucus membranes dry Heart reg Scant wheeze noted Abd soft I/P 1. ARF 2. Probable GN. Further diagnoses and plan as above.
[2017-09-02] MEDS: Sodium Bicarbonate 75 MEQ in D5% in 0.45% NACL 1,000 ML IVC SCH (09:42)
--- NOTE | 2017-09-02 09:49 | Nephrology Progress Note ---
Date of Encounter: 09/02/17 Time of Encounter: 08:30 - Assessment and Plan (1) Acute kidney failure Current Visit: Yes Status: Acute JONATAN in setting of GI losses which could be uremic symptoms superimposed on CKD, baseline creat 1.4-1.6. Could be progressive renal disease, Significant proteinuria and hematuria. Urine sediment was unremarkable per Dr. Borja, no cellular casts. Consider GN or RPGN. Renal biopsy scheduled for today. Temp HD catheter placed, dialyzed yesterday. HD again today, orders given. Renal US unremarkable. Will continue current IV fluids, decrease rate 50cc/hr. No documented urine output 130cc. Renal workup initiated, labs pending. Will continue to monitor. Avoid nephrotoxins. Qualifiers: Acute renal failure type: with other specified pathological lesion Qualified Code(s): N17.8 - Other acute kidney failure Subjective Interval history: Resting quietly. Admits some shortness of breath. NPO for renal biopsy. Objective - Vital Signs Vital signs: Vital Signs Temp Pulse Resp BP Pulse Ox 09/02/17 07:57 22 87 09/02/17 07:49 90 09/02/17 07:08 98.0 F 90 14 144/72 95 09/02/17 05:12 20 92 09/02/17 04:03 98.0 F 82 14 150/83 90 09/02/17 00:00 17 93 09/01/17 23:47 98.2 F 79 16 142/79 92 09/01/17 20:45 98.7 F 87 14 138/73 91 09/01/17 20:03 17 135/97 91 09/01/17 19:35 90 09/01/17 16:39 16 91 09/01/17 15:25 97.6 F 90 20 135/97 90 09/01/17 14:35 97.8 F 20 130/84 09/01/17 14:20 121/80 09/01/17 14:05 126/73 09/01/17 13:50 128/77 09/01/17 13:35 112/70 09/01/17 13:20 115/77 09/01/17 13:05 120/74 09/01/17 12:50 132/74 09/01/17 12:35 119/75 09/01/17 12:20 97.4 F L 18 147/79 Intake and Output 09/01/17 09/02/17 09/02/17 23:59 07:59 15:59 Intake Total 120 / 120 0 / 0 Output Total 50 / 50 0 / 0 Balance 70 / 70 0 / 0 Intake: Oral 120 / 120 0 / 0 Output: Urine 50 / 50 0 / 0 Other: Meal Dinner Percent of Meal Consumed 10% Weight 109.2 kg Blood Glucose* 105 Patient Weight 09/02/17 23:59 Weight 109.2 kg - General Appearance General appearance: Present: well-developed, well-nourished, appears started age , obese EENT: Present: mucous membranes moist Neck: Present: no JVD Additional Comments: diminished Cardiology: Present: edema, irregular rhythm Additional Comments: trace pitting Gastrointestinal: Present: normoactive bowel sounds Integumentary: Present: warm and dry Neurologic: Present: alert and oriented x3 - Lab 09/02/17 04:00 09/02/17 04:20 Most recent lab results Calcium 7.3 mg/dL (8.6-10.3) L 09/02/17 04:20 Phosphorus 9.1 mg/dL (2.7-4.5) H 08/31/17 09:31 - VTE Documentation of Mechanical Device: Intermittent pneumatic compression device Consult Discharge Plan - Plan Referrals: NONE,PCP [Primary Care Provider] -
[2017-09-02] MEDS ORDERED: Levofloxacin 500 MG/100 ML 500 MG/100 ML BAG IVPB SCH (10:00)
[2017-09-02] MEDS ORDERED: *HR* Midazolam HCl 2 MG/2 ML VIAL IVP ONE (14:51)
[2017-09-02] MEDS ORDERED: *HR* FentaNYL (PF) 100 MCG/2 ML VIAL IVP ONE (14:51)
[2017-09-02 14:52] LABS: Myeloperoxidase Ab 2 AU/mL (0-19); Serine Protease-3 Antibody 533 AU/mL (0-19)
--- NOTE | 2017-09-02 15:31 | IR Procedure Note ---
Date of procedure: 09/02/17 Consent Obtained: Verbal consent, Written consent Timeout: Correct patient and procedure verified, Correct site verified, Time out performed, Skin prep completed Local anesthetic: Lidocaine 1% Indications: Renal failure Procedure Performed: Random kidney biopsy Was there an therapeutic assistant present: No Site/Technique: CT guided random kidney biopsy Results/Findings: 6 18 gauge core needle biopsies Estimated blood loss (cc): 3 Complications: None; Tolerated procedure well Post Procedure Treatment Plan: Bedrest x2 hours Specimen: 6 18 gauge biopsies
[2017-09-02] MEDS ORDERED: *HR* Phytonadione 5 MG TABLET PO ONE ×2 (18:23→18:45)
[2017-09-02 19:26] LABS: Hematocrit 26.1 % (37.5-50.1); Hemoglobin 8.4 g/dL (12.9-16.9)
[2017-09-02] MEDS: methylPREDNISolone 250 MG in 0.9 % Sodium Chloride 50 ML IVPB SCH (19:53)
[2017-09-03] MEDS: methylPREDNISolone 250 MG in 0.9 % Sodium Chloride 50 ML IVPB SCH ×3 (00:27→14:03)
[2017-09-03] MEDS: Ipratropium/Albuterol Neb 3 ML IH SCH ×4 (03:51→15:35)
[2017-09-03 04:25] LABS: Hematocrit 26.5 % (37.5-50.1); Hemoglobin 8.3 g/dL (12.9-16.9); Mean Corpuscular HGB Conc 31.3 g/dL (31.6-35.5); Mean Corpuscular Hemoglobin 27.4 pg (28.0-33.3); Mean Corpuscular Volume 87.5 fL (83.0-100.0); Mean Platelet Volume 9.7 fL (9.4-12.4); Platelet Count 198 K/mcL (140-400); Red Blood Count 3.03 M/mcL (4.19-5.50); Red Cell Distribution Width 14.1 % (11.5-14.5)
[2017-09-03 04:44] LABS: Calcium 7.7 mg/dL (8.6-10.3); Potassium 4.4 mEq/L (3.5-5.1)
[2017-09-03] MEDS: Sodium Bicarbonate 75 MEQ in D5% in 0.45% NACL 1,000 ML IVC SCH (08:43)
[2017-09-03] MEDS ORDERED: Sennosides/Docusate Sodium TABLET PO PRN ×2 (09:06→17:53)
--- NOTE | 2017-09-03 09:34 | Nephrology Progress Note ---
Date of Encounter: 09/03/17 Time of Encounter: 09:20 - Assessment and Plan (1) Acute kidney failure Current Visit: Yes Status: Acute JONATAN in setting of GI losses which could be uremic symptoms superimposed on CKD, baseline creat 1.4-1.6. Could be progressive renal disease, Significant proteinuria and hematuria. Urine sediment was unremarkable per Dr. Borja, no cellular casts. Consider GN or RPGN. Renal biopsy yesterday, results pending. ANCA positive, started on Solu Medrol. ? Hemoptysis. Will get CT of chest w/o contrast. If suggestive of pulmonary hemorrhage, will need Pulmonary consult [place]. Temp HD catheter placed, dialyzed yesterday. HD again today, orders given. No documented urine output. Renal workup initiated, labs pending. Renal US unremarkable. Will continue to monitor. Avoid nephrotoxins. Qualifiers: Acute renal failure type: with other specified pathological lesion Qualified Code(s): N17.8 - Other acute kidney failure Subjective Interval history: Seen on HD. Patient admits hemoptsis yesterday in ER-small amount. Denies today. Objective - Vital Signs Vital signs: Vital Signs Temp Pulse Resp BP Pulse Ox 09/03/17 09:02 86 09/03/17 08:12 97.6 F 82 20 124/70 84 09/03/17 08:10 20 84 09/03/17 04:14 98.6 F 87 20 136/79 90 09/03/17 03:51 17 90 09/02/17 23:24 98.0 F 84 20 124/65 89 09/02/17 23:22 17 89 09/02/17 20:58 18 88 09/02/17 20:32 90 09/02/17 19:09 99.1 F 98 18 113/63 84 09/02/17 16:15 22 89 09/02/17 15:58 98.4 F 94 22 129/74 90 09/02/17 13:20 97.6 F 18 120/84 09/02/17 12:55 120/82 09/02/17 12:40 118/78 09/02/17 12:25 126/78 09/02/17 12:10 145/82 09/02/17 11:55 123/79 09/02/17 11:40 126/71 09/02/17 11:25 132/80 09/02/17 11:10 115/83 09/02/17 10:55 127/77 09/02/17 10:40 127/77 09/02/17 10:25 145/73 09/02/17 10:10 131/78 09/02/17 09:55 97.5 F L 18 13178 Intake and Output 09/02/17 09/03/17 09/03/17 23:59 07:59 15:59 Intake Total 154 / 154 1289 / 1289 290 / 290 Output Total 0 / 0 50 / 50 0 / 0 Balance 154 / 154 1239 / 1239 290 / 290 Intake: IV Fluids 154 / 154 1129 / 1129 Sodium Bicarbonate 75 MEQ In D5 1075 / 1075 % And 0.45% Nacl 1000 Ml Bag 1, 000 ML @ 50 mls/hr IVC .[id number] [facility] Rx#:[id number] Levaquin Premix 500mg/100mL 500 100 / 100 mg In 100 ml @ 100 mls/hr IVPB Q48H [facility] Rx#:[id number] Solu-MEDROL 250 MG In 0.9 % 54 / 54 54 / 54 Sodium Chloride 50 ML @ 108 mls /hr IVPB Q6H [facility] Rx#:[id number] Oral 0 / 0 160 / 160 290 / 290 Output: Urine 0 / 0 50 / 50 0 / 0 Other: Meal Breakfast Percent of Meal Consumed 90% # Voids 0 Weight 107.32 kg Patient Weight 09/03/17 23:59 Weight 107.32 kg - General Appearance General appearance: Present: well-developed, well-nourished, appears started age EENT: Present: mucous membranes moist Neck: Present: no JVD Respiratory: Present: clear Cardiology: Present: no edema, regular rate, regular rhythm Dialysis Vascular Access: Venous Catheter Gastrointestinal: Present: normoactive bowel sounds, no tenderness Integumentary: Present: warm and dry Neurologic: Present: alert and oriented x3 - Lab 09/03/17 04:00 09/03/17 04:00 Most recent lab results Calcium 7.7 mg/dL (8.6-10.3) L 09/03/17 04:00 Phosphorus 9.1 mg/dL (2.7-4.5) H 08/31/17 09:31 - VTE Documentation of Mechanical Device: Intermittent pneumatic compression device Consult Discharge Plan - Plan Referrals: NONE,PCP [Primary Care Provider] -
--- NOTE | 2017-09-03 10:08 | Internal Med Progress Note ---
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 - PR3 (c-ANCA) Ab is highly elevated (533) - Continue high-dose IV Solu-Medrol. Nephrology plans to start cyclophosphamide on Tuesday. - Pulmonology consulted and appreciate further evaluation and recommendation. - Given the potential to deteriorate quickly, will transfer patient to ICU for close monitoring. (2) Acute kidney failure Current Visit: Yes Status: Acute Assessment and plan: - SCr 14.78 / eGFR 3 on admission. Per nephrology note, patient's basline SCr ~ 1.6 in April 2017. - Likely secondary to granulomatosis with polyangiitis. - CT A/P and retroperitoneal US found no evidence of obstructive uropathy or hydronephrosis. - Viral hepatitis panel negative for hepatitis A, B & C. - Patient had temporarily dialysis catheter placed on 09/01/17 and received daily hemodialysis since. - Renal biopsy was done on 09/02/17. Per nephrology, the preliminary pathology report found acute necrotizing crescentic GN. - Avoid nephrotoxin. - Continue to monitor renal function and electrolytes closely. Qualifiers: Acute renal failure type: with other specified pathological lesion Qualified Code(s): N17.8 - Other acute kidney failure (3) Bronchiolitis Current Visit: Yes Status: Acute Assessment and plan: - CT A/P on 08/31/17 showed tree-in-bud type infiltrate at the lung bases concerning of an infectious bronchiolitis. - Continue IV levofloxacin (Day 4). Plan to treat for at least 5 days. (4) COPD (chronic obstructive pulmonary disease) with chronic bronchitis Current Visit: No Status: Chronic Assessment and plan: - Scheduled bronchodilators and supplemental oxygen. - Currently on IV Solu-Medrol. (5) Uremia Current Visit: Yes Status: Resolved Assessment and plan: - With nausea, vomiting, abdominal pain and some degree of confusion on initial presentation. - Improves as patient's mental status improves and abdominal pain, nausea and vomiting resolved. (6) Essential hypertension Current Visit: No Status: Chronic Assessment and plan: - Blood pressure within normal range most of time. (7) AAA (abdominal aortic aneurysm) Current Visit: Yes Status: Chronic Assessment and plan: - CT A/P on 08/31/17 found a 4.4 cm infrarenal abdominal aortic aneurysm. - Patient will need follow-up with his PCP after discharge for recommended vascular surgery consult and repeat imaging in 6 months to 1 year. Qualifiers: Presence of rupture: without rupture Qualified Code(s): I71.4 - Abdominal aortic aneurysm, without rupture (8) Lung nodule Current Visit: Yes Status: Acute Assessment and plan: - CT A/P on 08/31/17 found a 5 mm noncalcified left lower lobe pulmonary nodule. - Patient will need follow up with his PCP after discharge for possible need of repeat CT chest in 12 months. (9) DVT prophylaxis Current Visit: Yes Status: Acute Assessment and plan: - Continue EPCD as mechanical DVT prophylaxis. - Time Spent With Patient Total time spent is greater than 50% in coordination of care (as documented) at patient's floor/unit and/or counseling patient: - Subjective Interval history: Patient was seen and examined this morning. Patient reports feeling well with complaint of chest congestion and difficulty to cough up sputum. Patient denies fever, chills, chest pain, abdominal pain, nausea, vomiting. - Constitutional Vitals: Temp Pulse Resp BP Pulse Ox 97.6 F 82 20 124/70 86 09/03/17 08:12 09/03/17 08:12 09/03/17 08:12 09/03/17 08:12 09/03/17 09:02 General appearance: Present: cooperative, A&O X 3, no acute distress, answers questions appropriately - Head Head exam: Present: normal inspection - Eye Eye exam: Present: EOMI - Neck Neck exam general surgery: Present: normal inspection, trachea midline - Respiratory Respiratory exam: Present: rales - Cardiovascular Cardiovascular exam: Present: RRR, +S1, +S2 - GI/Abdominal GI/Abdominal exam: Present: normal bowel sounds, soft. Absent: tenderness - Extremities Exam Extremities exam: Absent: cyanotic, pedal edema - Neurological Exam Neurological exam: Present: alert, no focal deficits. Absent: facial droop, speech deficit - Skin Skin exam: Present: dry, warm Internal Medicine: Result - Labs CBC & Chem 7: 09/03/17 17:12 09/03/17 04:00 Labs: Short CBC 09/02/17 09/03/17 Range/Units 19:14 04:00 WBC 7.3 (4.3-11.1) K/mcL Hgb 8.4 L 8.3 L (12.9-16.9) g/dL Hct 26.1 L 26.5 L (37.5-50.1) % Plt Count 198 (140-400) K/mcL BMP 09/03/17 04:00 Sodium 133 L Potassium 4.4 Chloride 92 L Carbon Dioxide 29 BUN 51 H Creatinine 8.50 H Glucose 185 H Calcium 7.7 L - ABG Interpretation ABG results: PT/INR, D-dimer PT 16.0 Seconds (9.4-12.1) H 09/02/17 04:20 - Impressions Impressions Renal Biopsy CT 09/02/17 00:00 IMPRESSION: Successful CT guided random kidney core needle biopsy. D/ / Vladimir Cooper MD / Vladimir Cooper MD Interpreting Provider: Vladimir Cooper MD - VTE Documentation of Mechanical Device: Intermittent pneumatic compression device Consult Discharge Plan - Plan Referrals: NONE,PCP [Primary Care Provider] - <Haider Blanca - Last Filed: 09/03/17 19:37> Date of Encounter: 09/03/17 - Assessment and plan (1) Respiratory failure Current Visit: Yes Status: Acute Qualifiers: Chronicity: acute Respiratory failure complication: hypoxia Qualified Code(s): J96.01 - Acute respiratory failure with hypoxia (2) Acute kidney failure Current Visit: Yes Status: Acute Qualifiers: Acute renal failure type: with other specified pathological lesion Qualified Code(s): N17.8 - Other acute kidney failure (3) Glomerulonephritis Current Visit: Yes Status: Suspected (4) Bronchiolitis Current Visit: Yes Status: Acute (5) COPD (chronic obstructive pulmonary disease) with chronic bronchitis Current Visit: No Status: Chronic (6) Essential hypertension Current Visit: No Status: Chronic (7) Obesity (BMI 35.0-39.9 without comorbidity) Current Visit: Yes Status: Acute - Time Spent With Patient Total time spent is greater than 50% in coordination of care (as documented) at patient's floor/unit and/or counseling patient: - Constitutional Vitals: Temp Pulse Resp BP Pulse Ox 98.3 F 78 17 127/72 100 09/03/17 18:00 09/03/17 18:00 09/03/17 18:00 09/03/17 18:00 09/03/17 18:00 Internal Medicine: Result - Labs CBC & Chem 7: 09/03/17 17:12 09/03/17 04:00 Labs: Short CBC 09/03/17 09/03/17 Range/Units 04:00 17:12 WBC 7.3 (4.3-11.1) K/mcL Hgb 8.3 L 8.3 L (12.9-16.9) g/dL Hct 26.5 L 26.1 L (37.5-50.1) % Plt Count 198 (140-400) K/mcL BMP 09/03/17 04:00 Sodium 133 L Potassium 4.4 Chloride 92 L Carbon Dioxide 29 BUN 51 H Creatinine 8.50 H Glucose 185 H Calcium 7.7 L - ABG Interpretation ABG results: PT/INR, D-dimer PT 16.0 Seconds (9.4-12.1) H 09/02/17 04:20 - Impressions Impressions Chest CT 09/03/17 09:24 IMPRESSION: 1. Extensive reticular opacities bilaterally with patchy groundglass and consolidative opacities near the bases, most likely pneumonia superimposed upon severe centrilobular emphysema. Other alveolar processes such as pulmonary hemorrhage could appear similar. Recommend follow-up to resolution. 2. A few solid nodules in the right upper and left lower lobes measure up to 0.7 cm x 0.6 cm. Recommend follow-up chest CT in 3-6 months as below. RECOMMENDATIONS: Fleischner Society guidelines for follow-up and management of incidentally detected pulmonary nodules: Multiple Solid Nodules: Nodule size equals 6-8 mm In a high-risk patient, CT at 3-6 months, then CT at 18-24 months. Radiology 2017 http://pubs.rsna.org/doi/full/10.1148/radiol.[email or web address] D/ / Heriberto Rod MD / Heriberto Rod MD Interpreting Provider: Heriberto Rod MD - Attending Attestation Please see discharge summary of this date.
[2017-09-03] MEDS ORDERED: 0.9 % Sodium Chloride 250 ML IVC PRN ×4 (10:20→17:53)
[2017-09-03] MEDS ORDERED: 0.9 % Sodium Chloride 1,000 ML PRIME SCH ×4 (10:30→17:53)
[2017-09-03 17:23] LABS: Hematocrit 26.1 % (37.5-50.1); Hemoglobin 8.3 g/dL (12.9-16.9)
[2017-09-03] MEDS ORDERED: Albuterol 2.5 MG/3 ML NEBULIZER IH PRN (17:53)
[2017-09-03] MEDS ORDERED: Acetaminophen 325 MG TABLET PO PRN (17:53)
[2017-09-03] MEDS ORDERED: *HR* Heparin 10,000 UNIT/10 ML VIAL IV PRN (17:53)
[2017-09-03] MEDS ORDERED: methylPREDNISolone 250 MG in 0.9 % Sodium Chloride 50 ML IVPB SCH (18:30)
[2017-09-03] MEDS ORDERED: Lacri-Lube 3.5 GM TUBE BOTH EYES PRN (19:22)
--- NOTE | 2017-09-03 19:26 | Discharge Summary ---
<Padma Wolfe - Last Filed: 09/03/17 19:23> Orders not resulted at time of discharge: Pending orders 08/31/17 08:58 Urine Total Protein 24 Hr [UCHEM] Routine 09/02/17 15:15 Miscellaneous Lab Test Routine 09/03/17 19:21 XR KUB [XR] Stat XR chest 1V portable [XR] Stat 09/04/17 04:00 Basic Metabolic Panel AM 0400 Complete Blood Count [HEME] AM 0400 Complete Blood Count w/o Diff [HEME] AM 0400 PT/INR [Prothrombin Time INR] [COAG] AM 0400 09/05/17 04:00 Basic Metabolic Panel AM 0400 Complete Blood Count w/o Diff [HEME] AM 0400 09/06/17 04:00 Basic Metabolic Panel AM 0400 Complete Blood Count w/o Diff [HEME] AM 0400 09/07/17 04:00 Basic Metabolic Panel AM 0400 Complete Blood Count w/o Diff [HEME] AM 0400 09/08/17 04:00 Basic Metabolic Panel AM 0400 Complete Blood Count w/o Diff [HEME] AM 0400 Date of Encounter: 09/03/17 Time of Encounter: 19:00 - Discharge Diagnosis (1) Shiloh's granulomatosis (granulomatosis with polyangiitis) Priority: Primary Status: Acute (2) Acute kidney failure Priority: Primary Status: Acute Qualifiers: Acute renal failure type: with other specified pathological lesion Qualified Code(s): N17.8 - Other acute kidney failure (3) Bronchiolitis Priority: Secondary Status: Acute (4) COPD (chronic obstructive pulmonary disease) with chronic bronchitis Priority: Secondary Status: Chronic (5) Uremia Priority: Secondary Status: Resolved (6) Essential hypertension Priority: Secondary Status: Chronic (7) AAA (abdominal aortic aneurysm) Priority: Secondary Status: Chronic Qualifiers: Presence of rupture: without rupture Qualified Code(s): I71.4 - Abdominal aortic aneurysm, without rupture (8) Lung nodule Priority: Secondary Status: Acute Hospital course: Mr. Castillo is a 67 year old male with PMH of COPD who presented to [place] ED with complaint of nausea, vomiting and abdominal pain. Patient was noted to have Cr 14.78 in ED (compared to baseline Cr at ~1.6 in April 2017). CT A/P found no evidence of obstructive uropathy. Mild nonspecific left greater than right perinephric stranding. Tree-in-bud type infiltrate at the lung bases, consider an infectious bronchiolitis. A 4.4 cm infrarenal abdominal aortic aneurysm and a 5 mm noncalcified left lower lobe pulmonary nodule were also noted. Patient was admitted for acute renal failure on 08/31/17 and started on levofloxacin for bronchiolitis. Right IJ temporary HD catheter was placed on 09/01/17 and patient received daily hemodialysis since. Patient had renal biopsy on 09/02/17 which pathology report showed acute necrotizing crescent GN. PR3 (c-ANCA) Ab came back elevated at 533 and Solu-Medrol 250 mg IV q6H were started on 09/02/17. Patient's mental status, nausea, vomiting and abdominal pain significantly improve since admission. But patient started to develop hemoptysis on 09/02/17 and has progressive hypoxia requiring increase in supplemental oxygen. Chest CT on 09/03/17 found extensive reticular opacities bilaterally with patchy groundglass and consolidative opacities near the bases concerning of diffuse alveolar hemorrhage. Patient was transferred to ICU for close monitoring but also noted have worsening hypoxia and start to develop epistaxis. Given the concern of threatening airway from bleeding, patient was intubated and started on ventilation support. paralegal specialist recommends transfer to tertiary care facility for urgent immunosuppresive therapy. Patient elected to go to [facility] before being intubated. The transfer was arranged and [facility] ICU kindly accepts the patient. Patient will be transferred to ICU once transportation is ready. Discharge discussed with: patient, family - Time Spent with Patient Total time spent providing and/or coordinating discharge services: - Discharge Medications Home Medications: Albuterol Sulfate [Ventolin Hfa] 2 puff IH Q4H 08/31/17 [History] Budesonide [Pulmicort Flexhaler 180mcg] 2 puff IH BID 08/31/17 [History] Metoprolol [Lopressor] 25 mg PO BID 08/31/17 [History] Triamterene/HCTZ 37.5/25mg [Dyazide] 1 each PO DAILY 08/31/17 [History] Allergies/Adverse Reactions: 3 Allergy/AdvReac Type Severity Reaction Status Date / Time Penicillins AdvReac Hives Verified 08/31/17 01:38 Date of admission: 08/31/17 08:38 Primary care physician: PCP NONE Consults: 09/01/17 08:58 Consult to Interventional Radiology [CONS] Routine Consulting Provider: Radiology Interventional Cols Reason for Consult: temp HD cath, JONATAN creat > 15, Renal biopsy Time Notified: 08:59 Call Completed: Yes 09/01/17 09:30 Consult to Dialysis [CONS] ONCE 09/02/17 09:00 Consult to Dialysis [CONS] ONCE 09/03/17 10:30 Consult to Dialysis [CONS] ONCE 09/03/17 15:10 Consult to Pulmonology [CONS] Routine Consulting Provider: Pulm Crit Care & Sleep Cassandra Reason for Consult: Newly diagnosed Shiloh involving kidney and lungs. CT chest suggests diffuse aveolar hemorrhage. Currently on Solu-Medrol 250 mg q6H. Appreciate pulmonology consult. Call Completed: Yes Discharging clinician: Padma Wolfe Anticipated date of discharge: 09/03/17 - Constitutional Vitals: Temp Pulse Resp BP Pulse Ox 98.3 F 78 17 127/72 100 09/03/17 18:00 09/03/17 18:00 09/03/17 18:00 09/03/17 18:00 09/03/17 18:00 General appearance: Present: cooperative, A&O X 3, no acute distress, answers questions appropriately - Head Head exam: Present: normal inspection - Eye Eye exam: Present: EOMI - Neck Neck exam general surgery: Present: normal inspection, trachea midline - Respiratory Respiratory exam: Present: rales - Cardiovascular Cardiovascular exam: Present: RRR, +S1, +S2 - GI/Abdominal GI/Abdominal exam: Present: normal bowel sounds, soft. Absent: tenderness - Extremities Exam Extremities exam: Absent: cyanotic, pedal edema - Neurological Exam Neurological exam: Present: alert, no focal deficits. Absent: facial droop, speech deficit - Skin Skin exam: Present: dry, warm - Patient Status Disposition: Transfer Other Condition: Fair - Discharge Instructions Follow Up With: NONE,PCP [Primary Care Provider] - - VTE Documentation of Mechanical Device: Intermittent pneumatic compression device <Haider Blanca - Last Filed: 09/03/17 20:04> Orders not resulted at time of discharge: Pending orders 08/31/17 08:58 Urine Total Protein 24 Hr [UCHEM] Routine 09/02/17 15:15 Miscellaneous Lab Test Routine 09/03/17 19:30 Arterial Blood Gas DAILY 09/04/17 04:00 Basic Metabolic Panel AM 0400 Complete Blood Count [HEME] AM 0400 Complete Blood Count w/o Diff [HEME] AM 0400 PT/INR [Prothrombin Time INR] [COAG] AM 0400 09/04/17 19:30 Arterial Blood Gas DAILY 09/05/17 04:00 Basic Metabolic Panel AM 0400 Complete Blood Count w/o Diff [HEME] AM 0400 09/05/17 19:30 Arterial Blood Gas DAILY 09/06/17 04:00 Basic Metabolic Panel AM 0400 Complete Blood Count w/o Diff [HEME] AM 0400 09/06/17 19:30 Arterial Blood Gas DAILY 09/07/17 04:00 Basic Metabolic Panel AM 0400 Complete Blood Count w/o Diff [HEME] AM 0400 09/07/17 19:30 Arterial Blood Gas DAILY 09/08/17 04:00 Basic Metabolic Panel AM 0400 Complete Blood Count w/o Diff [HEME] AM 0400 09/08/17 19:30 Arterial Blood Gas DAILY 09/09/17 19:30 Arterial Blood Gas DAILY 09/10/17 19:30 Arterial Blood Gas DAILY 09/11/17 19:30 Arterial Blood Gas DAILY 09/12/17 19:30 Arterial Blood Gas DAILY Date of Encounter: 09/03/17 - Discharge Diagnosis (1) Respiratory failure Priority: Primary Status: Acute Qualifiers: Chronicity: acute Respiratory failure complication: hypoxia Qualified Code(s): J96.01 - Acute respiratory failure with hypoxia (2) Shiloh's granulomatosis (granulomatosis with polyangiitis) Status: Acute (3) Acute kidney failure Status: Acute Qualifiers: Acute renal failure type: with other specified pathological lesion Qualified Code(s): N17.8 - Other acute kidney failure (4) Glomerulonephritis Priority: Secondary Status: Suspected (5) Bronchiolitis Status: Acute (6) COPD (chronic obstructive pulmonary disease) with chronic bronchitis Status: Chronic (7) Essential hypertension Status: Chronic (8) Obesity (BMI 35.0-39.9 without comorbidity) Priority: Secondary Status: Chronic (9) Pulmonary alveolar hemorrhage Priority: Primary Status: Acute Hospital course: Mr. Castillo is a 67 year old male - Time Spent with Patient Total time spent providing and/or coordinating discharge services: Date of admission: 08/31/17 08:38 Primary care physician: PCP NONE Consults: 09/01/17 08:58 Consult to Interventional Radiology [CONS] Routine Consulting Provider: Radiology Interventional Cols Reason for Consult: temp HD cath, JONATAN creat > 15, Renal biopsy Time Notified: 08:59 Call Completed: Yes 09/01/17 09:30 Consult to Dialysis [CONS] ONCE 09/02/17 09:00 Consult to Dialysis [CONS] ONCE 09/03/17 10:30 Consult to Dialysis [CONS] ONCE 09/03/17 15:10 Consult to Pulmonology [CONS] Routine Consulting Provider: Pulm Crit Care & Sleep Cassandra Reason for Consult: Newly diagnosed Shiloh involving kidney and lungs. CT chest suggests diffuse aveolar hemorrhage. Currently on Solu-Medrol 250 mg q6H. Appreciate pulmonology consult. Call Completed: Yes - Constitutional Vitals: Temp Pulse Resp BP Pulse Ox 98.3 F 78 17 127/72 100 09/03/17 18:00 09/03/17 18:00 09/03/17 18:00 09/03/17 18:00 09/03/17 18:00 - Attending Attestation I examined this patient and my medical decision-making was reviewed with the Resident Physician on 09/03/17. I agree with the documented findings, disposition and treatment plan as described except to the extent set forth below. Mr Castillo has been admitted for acute renal failure. He was started on dialysis and renal biopsy found necrotizing GN. He developed hemoptysis and CT consistent with DAH. He continued to decline and ultimately was intubated and transferred to [facility] for further care. Exam alert Mucus membranes dry Heart reg Diffuse crackles Plan Transfer to [facility].
--- NOTE | 2017-09-03 19:33 | Event Note ---
<Lowell Lord - Last Filed: 09/03/17 19:30> Date of Encounter: 09/03/17 Time of Encounter: 19:30 Procedures: General Surgery - Intubation Time out performed: Yes Sedative: Etomidate Mg given: 20 Paralytic: Succinylcholine Mg given: 200 Laryngoscope: Saige ET tube size: 7.5 ET tube uncuffed: No Tube secured depth (cm): 23 Tube secured location: lips Tube placement confirmation: visualized tube passing through cords, equal breath sounds bilaterally, no breath sounds over epigastrium, confirmation by capnometry Patient tolerated procedure: other (on initial attempt, patient aspirated, tolerated well on second attempt.) Intubation complications: none Follow up chest x-ray: Yes (distal end of tube terminates at the micheline) <Haider Blanca - Last Filed: 09/03/17 19:46> Date of Encounter: 09/03/17 I was present for the entire procedure.
[2017-09-03] MEDS ORDERED: Lacri-Lube 3.5 GM TUBE BOTH EYES SCH (20:00)
[2017-09-03] MEDS ORDERED: Ipratropium/Albuterol Neb 3 ML IH SCH (20:00)
[2017-09-03] MEDS ORDERED: FentaNYL (PF) 1,000 MCG in 0.9 % Sodium Chloride 80 ML IVC SCH (20:00)
[2017-09-03 20:09] VITALS: BP 100/63
[2017-09-03] MEDS ORDERED: *HR* Etomidate 40 MG/20 ML VIAL IVP ONE (20:28)
[2017-09-03] MEDS ORDERED: *HR* Succinylcholine 200 MG/10 ML VIAL IVP ONE ×2 (20:32→21:22)
[2017-09-03] MEDS ORDERED: Chlorhexidine Rinse 15 ML MOUTHWASH MM SCH (21:00)
[2017-09-03] MEDS ORDERED: *HR* Etomidate 20 MG/10 ML AMPUL IVP ONE (21:22)
[2017-09-04] MEDS ORDERED: Pantoprazole 40 MG VIAL IVP SCH (09:00)
[2017-09-04] MEDS ORDERED: Levofloxacin 500 MG/100 ML 500 MG/100 ML BAG IVPB SCH (10:00)
== END 2017-09-03 21:23 | disposition other institution (70) | DRG 682 ==
LOC: 2SOUTHHOLD 01:22 → EMEROO 01:22 → 2SOUTHHOLD 07:15 → SUATTDRO 08:38 → 2ANU 09-02 18:36 → ICNU 09-03 17:50
PROVIDERS: ADMIT Family Medicine; ATTEND Internal Medicine

== ENCOUNTER 2018-03-24 09:48 | Inpatient (IN) ==
[2018-03-24 10:31] LABS: Basophils # 0.1 K/mcL (0.0-0.2); Basophils % 1.1 %; Eosinophils # 0.2 K/mcL (0.0-0.6); Eosinophils % 2.2 %; Hematocrit 30.2 % (37.5-50.1); Hemoglobin 8.8 g/dL (12.9-16.9); Immature Granulocytes % 1.3 % (0-4); Lymphocytes # 1.2 K/mcL (0.6-4.6); Lymphocytes % 12.8 %; Mean Corpuscular HGB Conc 29.1 g/dL (31.6-35.5); Mean Corpuscular Hemoglobin 27.3 pg (28.0-33.3); Mean Corpuscular Volume 93.8 fL (83.0-100.0); Mean Platelet Volume 9.1 fL (9.4-12.4); Monocytes # 0.9 K/mcL (0.0-1.3); Monocytes % 9.9 %; Neutrophils # 6.9 K/mcL (1.6-8.9); Platelet Count 270 K/mcL (140-400); Red Blood Count 3.22 M/mcL (4.19-5.50); Red Cell Distribution Width 16.8 % (11.5-14.5); Segmented Neutrophils % 72.7 %
--- NOTE | 2018-03-24 10:33 | Emergency Department Note ---
Disposition Clinical Impression: HCAP (healthcare-associated pneumonia), Hypoxia Fluid overload Qualifiers: Hypervolemia type: unspecified Qualified Code(s): E87.70 - Fluid overload, unspecified Disposition: Admitted As Inpatient Condition: Fair General Adult HPI - General Chief complaint: ED Shortness of Breath/Dyspnea Stated complaint: Low o2 Time Seen by Provider: 03/24/18 09:51 Source: patient Limitations: no limitations Nursing Notes Reviewed: Yes Vital Signs Reviewed: Yes - History of Present Illness HPI Narrative: 67-year-old male with complex past medical history including end-stage renal disease currently on dialysis receiving it Tuesday, Tuesday, Tuesday presenting to the emergency department with chief complaint of shortness of breath and h ypoxia. Patient states she was seen here approximately a week ago for similar complaints when he had a CT of the chest completed that showed pneumonia. Patient was given a 10 day course of Levaquin and discharged home. Today he went to his physician's office for follow-up and he was hypoxic in the 60% on his 3 L nasal cannula that he is normally on at home. Patient states he has had hemoptysis during this episode of shortness of breath and pneumonia. Patient was following up with pulmonology. Patient denies any fevers, nausea, vomiting or abdominal pain. Denies any chest pain. Pain Scale: 0 - Related Data Home Medications Medication Instructions Recorded Confirmed Albuterol Sulfate [Ventolin Hfa] 2 puff IH Q4H 08/31/17 03/24/18 Metoprolol [Lopressor] 25 mg PO DAILY 08/31/17 03/24/18 Aspirin [Adult Aspirin] 81 mg PO DAILY 03/24/18 03/24/18 Budesonide [Pulmicort Flexhaler 2 puff IH BID 03/24/18 03/24/18 180mcg] Calcium Carbonate 1,300 mg PO DAILY 03/24/18 03/24/18 Cholecalciferol (D-3) [Vitamin D] 1,000 unit PO DAILY 03/24/18 03/24/18 Folic Acid/Vit B Complex and C 1 tab PO DAILY 03/24/18 03/24/18 [Dialyvite Tablet] Sevelamer [Renvela] 1,600 mg PO TID 03/24/18 03/24/18 Tiotropium [Spiriva] 1 puff IH DAILY 03/24/18 03/24/18 Allergies Allergy/AdvReac Type Severity Reaction Status Date / Time Amoxicillin Allergy Rash Verified 03/10/18 13:35 Penicillins AdvReac Hives Verified 08/31/17 01:38 All systems ED: reviewed and negative except as stated. Constitutional: Denies: fever, chills Eyes: Reports: as per HPI ENT ED: Reports: as per HPI Cardiovascular: Denies: chest pain, palpitations Respiratory: Reports: cough, dyspnea, hemoptysis Gastrointestinal: Denies: abdominal pain, nausea, vomiting Genitourinary: Reports: as per HPI Musculoskeletal: Reports: as per HPI Integumentary: Reports: as per HPI Neurological: Denies: weakness, numbness, paresthesias Psychiatric: Reports: as per HPI Endocrine: Reports: as per HPI Hematological/Lymphatic: Reports: as per HPI Allergic/Immunologic: Reports: as per HPI Past Medical History - Past Medical History Attestation: Yes The following information was validated with the patient. Source: patient Medical history: Reports: cancer, CHF, COPD, dialysis, hypertension, renal disease Psychiatric history: Reports: no psych history - Social History Smoking Status: Former smoker Smokeless Tobacco Status: Yes Alcohol use: Reports: none Drug use: Reports: none Physical Exam - General Limitations: no limitations General appearance: alert, in no apparent distress - Head Head exam: atraumatic, normocephalic, normal inspection - Eye Eye exam: Present: normal appearance. Absent: scleral icterus, conjunctival injection - ENT ENT exam: normal exam, mucous membranes moist - Neck Neck exam: Present: normal inspection. Absent: tenderness, meningismus - Chest Chest inspection: Present: normal inspection, symmetric chest wall rise. Absent: tenderness, rash - Respiratory Respiratory exam: Present: other (Decreased breath sounds in the bilateral bases. Rhonchi throughout) - Cardiovascular Cardiovascular exam: Present: regular rate, normal rhythm, normal heart sounds - Abdominal Exam Abdominal exam: Present: soft, Non-Tender. Absent: distention, guarding, rebound - Neurological Exam Neurological exam: Present: alert, oriented X3 - Psychiatric Psychiatric exam: Present: normal affect, normal mood - Skin Skin exam: Present: warm, intact Course Course Narrative: 67-year-old male presenting for shortness of breath. Diagnosed with pneumonia approximately a week and a half ago given Levaquin as an outpatient and was seen today for follow-up and was severely hypoxic around 65% oxygen saturation on his 3 L nasal cannula. Patient continues to have hemoptysis. Patient transferred here for further evaluation. Patient put on oxi mask at 15 L when he first arrived. During the examination he is no longer dyspneic and resting comfortably. Oxygen saturation in the mid to upper 90s. Patient denies any oth er symptoms at this time. He does have a port on the right side of his chest that is clean with no discharge or redness. Patient denies any fevers. He is alert and oriented 3 and hemodynamically stable. This time will obtain basic laboratory analysis along with a chest x-ray. We will provide him with healthcare acquired pneumonia coverage to include vancomycin, cefepime and azithromycin. Patient is allergic to penicillin but states it is only a rash therefore we chose cefepime over Zosyn. Disposition most likely admission but pending results. Patient agrees with this plan. - Reevaluation(s) Reevaluation #1: Patient's laboratory analysis shows chronic kidney disease, chronic anemia, mildly elevated troponin at 0.05 and elevated BNP. Patient's chest x-ray continues to show pneumonia and some fluid overload. At this time will plan to admit the patient for further treatment of his healthcare acquired pneumonia. I spoke with the hospitalist button buttonhole marker Dr. Caruso who agrees to accept the patient at this time. She would like us to also consult nephrology to make them aware of the patient's case. I spoke with the relationship advisor on-call Dr. Friedman who is aware. Patient remains alert and oriented 3 in room in hemodynamically stable. Patient agrees with this plan. Vital Signs Temperature 98.3 F 03/24/18 09:53 Pulse Rate 97 03/24/18 09:53 Respiratory Rate 22 03/24/18 09:53 Blood Pressure 132/79 03/24/18 09:53 O2 Sat by Pulse Oximetry 74 03/24/18 09:53 Temperature 98.3 F 03/24/18 10:01 Pulse Rate 84 03/24/18 12:28 Respiratory Rate 18 03/24/18 12:28 Blood Pressure 176/78 03/24/18 12:28 O2 Sat by Pulse Oximetry 94 03/24/18 12:28 Oxygen Delivery Oxygen Delivery Simple Mask Medical Decision Making - Lab Data Result diagrams: 03/24/18 10:06 03/24/18 10:06 Lab Results 03/24/18 03/24/18 03/24/18 Range/Units 10:06 10:06 10:06 WBC 9.5 (4.3-11.1) K/mcL RBC 3.22 L (4.19-5.50) M/mcL Hgb 8.8 L (12.9-16.9) g/dL Hct 30.2 L (37.5-50.1) % MCV 93.8 (83.0-100.0) fL MCH 27.3 L (28.0-33.3) pg MCHC 29.1 L (31.6-35.5) g/dL RDW 16.8 H (11.5-14.5) % Plt Count 270 (140-400) K/mcL MPV 9.1 L (9.4-12.4) fL Immature Gran % 1.3 (0-4) % Seg Neutrophils % 72.7 % Lymphocytes % 12.8 % Monocytes % 9.9 % Eosinophils % 2.2 % Basophils % 1.1 % Neutrophils # 6.9 (1.6-8.9) K/mcL Lymphocytes # 1.2 (0.6-4.6) K/mcL Monocytes # 0.9 (0.0-1.3) K/mcL Eosinophils # 0.2 (0.0-0.6) K/mcL Basophils # 0.1 (0.0-0.2) K/mcL Sodium 137 (136-145) mEq/L Potassium 4.7 (3.5-5.1) mEq/L Chloride 102 (98-107) mEq/L Carbon Dioxide 23 (23-29) mEq/L BUN 60 H (8-23) mg/dL Creatinine 7.87 H (0.70-1.30) mg/dL Est GFR ( Amer) 8 L (> 60) Est GFR (Non-Af Amer) 7 L (> 60) BUN/Creatinine Ratio 8 (6-26) Glucose 97 (70-105) mg/dL Calculated Osmolality 301 H (280-300) Lactic Acid 1.0 (0.5-2.2) mmol/L Calcium 8.7 (8.6-10.3) mg/dL Troponin I 0.05 H* (< 0.04) ng/mL B-Natriuretic Peptide (Less than 100) pg/mL 03/24/18 Range/Units 10:06 WBC (4.3-11.1) K/mcL RBC (4.19-5.50) M/mcL Hgb (12.9-16.9) g/dL Hct (37.5-50.1) % MCV (83.0-100.0) fL MCH (28.0-33.3) pg MCHC (31.6-35.5) g/dL RDW (11.5-14.5) % Plt Count (140-400) K/mcL MPV (9.4-12.4) fL Immature Gran % (0-4) % Seg Neutrophils % % Lymphocytes % % Monocytes % % Eosinophils % % Basophils % % Neutrophils # (1.6-8.9) K/mcL Lymphocytes # (0.6-4.6) K/mcL Monocytes # (0.0-1.3) K/mcL Eosinophils # (0.0-0.6) K/mcL Basophils # (0.0-0.2) K/mcL Sodium (136-145) mEq/L Potassium (3.5-5.1) mEq/L Chloride (98-107) mEq/L Carbon Dioxide (23-29) mEq/L BUN (8-23) mg/dL Creatinine (0.70-1.30) mg/dL Est GFR ( Amer) (> 60) Est GFR (Non-Af Amer) (> 60) BUN/Creatinine Ratio (6-26) Glucose (70-105) mg/dL Calculated Osmolality (280-300) Lactic Acid (0.5-2.2) mmol/L Calcium (8.6-10.3) mg/dL Troponin I (< 0.04) ng/mL B-Natriuretic Peptide 3475 H (Less than 100) pg/mL - EKG Data EKG #1 EKG attestation: Yes I reviewed and interpreted this EKG. EKG results narrative: Sinus rhythm. PVCs. 95 beats minute. ND interval 183, QRS 78, QTC 438. No sign of acute ST segment elevation or ischemia. Compared to previous EKG completed on 03/10/2018 no significant changes noted Critical Care Time Critical Care Time: Yes Total Critical Care Time: 35 Attestation: Critical care performed: Time is exclusive of separately billable procedures. Time includes: direct patient care, patient reassessment, coordination of patient care, interpretation of data (laboratory data, radiology data, and respiratory data), review of patient's medical records, medical consultation and documentation of patient care. Procedures included in critical care time: Procedures excluded from critical care time:
[2018-03-24 10:40] LABS: Calcium 8.7 mg/dL (8.6-10.3); Potassium 4.7 mEq/L (3.5-5.1)
[2018-03-24 10:44] LABS: Troponin I 0.05 ng/mL (< 0.04)
[2018-03-24] MEDS ORDERED: Azithromycin 250 MG TABLET PO ONE (10:58)
[2018-03-24] MEDS ORDERED: Cefepime HCl 2,000 MG in 0.9 % Sodium Chloride Mini Bag 100 ML IVPB STA (11:00)
--- NOTE | 2018-03-24 11:19 | Emergency Department Note ---
Disposition Clinical Impression: HCAP (healthcare-associated pneumonia), Hypoxia Fluid overload Qualifiers: Hypervolemia type: unspecified Qualified Code(s): E87.70 - Fluid overload, unspecified Disposition: Admitted As Inpatient General Adult HPI - General Chief complaint: ED Shortness of Breath/Dyspnea Stated complaint: Low o2 Time Seen by Provider: 03/24/18 09:51 Source: patient Limitations: no limitations - History of Present Illness Pain Scale: 0 - Related Data Home Medications Medication Instructions Recorded Confirmed Albuterol Sulfate [Ventolin Hfa] 2 puff IH Q4H 08/31/17 03/24/18 Metoprolol [Lopressor] 25 mg PO DAILY 08/31/17 03/24/18 Aspirin [Adult Aspirin] 81 mg PO DAILY 03/24/18 03/24/18 Budesonide [Pulmicort Flexhaler 2 puff IH BID 03/24/18 03/24/18 180mcg] Calcium Carbonate 1,300 mg PO DAILY 03/24/18 03/24/18 Cholecalciferol (D-3) [Vitamin D] 1,000 unit PO DAILY 03/24/18 03/24/18 Folic Acid/Vit B Complex and C 1 tab PO DAILY 03/24/18 03/24/18 [Dialyvite Tablet] Sevelamer [Renvela] 1,600 mg PO TID 03/24/18 03/24/18 Tiotropium [Spiriva] 1 puff IH DAILY 03/24/18 03/24/18 Allergies Allergy/AdvReac Type Severity Reaction Status Date / Time Amoxicillin Allergy Rash Verified 03/10/18 13:35 Penicillins AdvReac Hives Verified 08/31/17 01:38 Past Medical History - Past Medical History Medical history: Reports: cancer, CHF, COPD, dialysis, hypertension, renal disease Psychiatric history: Reports: no psych history - Social History Smoking Status: Former smoker Smokeless Tobacco Status: Yes Alcohol use: Reports: none Drug use: Reports: none Physical Exam - General Limitations: no limitations General appearance: alert, in no apparent distress Course Vital Signs Temperature 98.3 F 03/24/18 09:53 Pulse Rate 97 03/24/18 09:53 Respiratory Rate 22 03/24/18 09:53 Blood Pressure 132/79 03/24/18 09:53 O2 Sat by Pulse Oximetry 74 03/24/18 09:53 Temperature 97.9 F 03/24/18 13:52 Pulse Rate 88 03/24/18 13:52 Respiratory Rate 20 03/24/18 13:52 Blood Pressure 160/81 03/24/18 13:52 O2 Sat by Pulse Oximetry 91 03/24/18 13:53 Oxygen Delivery Oxygen Delivery Simple Mask Medical Decision Making - Lab Data Result diagrams: 03/24/18 10:06 03/24/18 10:06 Lab Results 03/24/18 03/24/18 03/24/18 Range/Units 10:06 10:06 10:06 WBC 9.5 (4.3-11.1) K/mcL RBC 3.22 L (4.19-5.50) M/mcL Hgb 8.8 L (12.9-16.9) g/dL Hct 30.2 L (37.5-50.1) % MCV 93.8 (83.0-100.0) fL MCH 27.3 L (28.0-33.3) pg MCHC 29.1 L (31.6-35.5) g/dL RDW 16.8 H (11.5-14.5) % Plt Count 270 (140-400) K/mcL MPV 9.1 L (9.4-12.4) fL Immature Gran % 1.3 (0-4) % Seg Neutrophils % 72.7 % Lymphocytes % 12.8 % Monocytes % 9.9 % Eosinophils % 2.2 % Basophils % 1.1 % Neutrophils # 6.9 (1.6-8.9) K/mcL Lymphocytes # 1.2 (0.6-4.6) K/mcL Monocytes # 0.9 (0.0-1.3) K/mcL Eosinophils # 0.2 (0.0-0.6) K/mcL Basophils # 0.1 (0.0-0.2) K/mcL Sodium 137 (136-145) mEq/L Potassium 4.7 (3.5-5.1) mEq/L Chloride 102 (98-107) mEq/L Carbon Dioxide 23 (23-29) mEq/L BUN 60 H (8-23) mg/dL Creatinine 7.87 H (0.70-1.30) mg/dL Est GFR ( Amer) 8 L (> 60) Est GFR (Non-Af Amer) 7 L (> 60) BUN/Creatinine Ratio 8 (6-26) Glucose 97 (70-105) mg/dL Calculated Osmolality 301 H (280-300) Lactic Acid 1.0 (0.5-2.2) mmol/L Calcium 8.7 (8.6-10.3) mg/dL Troponin I 0.05 H* (< 0.04) ng/mL B-Natriuretic Peptide (Less than 100) pg/mL 03/24/18 Range/Units 10:06 WBC (4.3-11.1) K/mcL RBC (4.19-5.50) M/mcL Hgb (12.9-16.9) g/dL Hct (37.5-50.1) % MCV (83.0-100.0) fL MCH (28.0-33.3) pg MCHC (31.6-35.5) g/dL RDW (11.5-14.5) % Plt Count (140-400) K/mcL MPV (9.4-12.4) fL Immature Gran % (0-4) % Seg Neutrophils % % Lymphocytes % % Monocytes % % Eosinophils % % Basophils % % Neutrophils # (1.6-8.9) K/mcL Lymphocytes # (0.6-4.6) K/mcL Monocytes # (0.0-1.3) K/mcL Eosinophils # (0.0-0.6) K/mcL Basophils # (0.0-0.2) K/mcL Sodium (136-145) mEq/L Potassium (3.5-5.1) mEq/L Chloride (98-107) mEq/L Carbon Dioxide (23-29) mEq/L BUN (8-23) mg/dL Creatinine (0.70-1.30) mg/dL Est GFR ( Amer) (> 60) Est GFR (Non-Af Amer) (> 60) BUN/Creatinine Ratio (6-26) Glucose (70-105) mg/dL Calculated Osmolality (280-300) Lactic Acid (0.5-2.2) mmol/L Calcium (8.6-10.3) mg/dL Troponin I (< 0.04) ng/mL B-Natriuretic Peptide 3475 H (Less than 100) pg/mL Attestation Statement - Attestation Attestation: I examined this patient and my medical decision-[facility]. I agree with the documented findings, disposition and treatment plan as described except to the extent set forth below. Patient presents to the ED with a chief complaint of shortness of breath at coughing up phlegm. Had follow-up with the dredge deckhand today and they sent him over here for admission. Concerned because his been on antibiotic for 10 days and is not getting better. On examination he is in no distress. Crackles in bases. He is hypoxic but improves with oxygen mask. No fever. Plan. Patient does not meet sepsis criteria. Appears fluid overloaded. Repeat x-ray basic labs. We will put him on antibiotics Chest X-Ray 03/24/18 10:14 IMPRESSION: Previously noted masslike consolidation in the lingula of the left upper lobe on prior CT exam 03/10/2018 appears improved, given differences in modality. Continued follow-up recommended. Worsened airspace opacity more inferiorly to the left lung base along with blunting of the left costophrenic angle concerning for worsened left pleural effusion and associated atelectasis or infiltrate. Clinical correlation and continued follow-up recommended. Superimposed worsened streaky/reticular opacities to the bilateral mid to lower lung zones, left more than right, which may be on the basis of atelectasis, infiltrates and/or interstitial edema. No overt pulmonary edema noted. Superimposed COPD changes redemonstrated. D/ / 03/24/2018 10:56:09 Nitin Field MD / Summer Veliz Interpreting Provider: Nitin Field MD for hospital-acquired pneumonia. Admit to medicine.
[2018-03-24] MEDS ORDERED: 0.9 % Sodium Chloride 250 ML IVC PRN (13:16)
[2018-03-24] MEDS ORDERED: 0.9 % Sodium Chloride 1,000 ML PRIME SCH (13:30)
[2018-03-24] MEDS ORDERED: *HR* Heparin 10,000 UNIT/10 ML VIAL IV PRN (14:06)
[2018-03-24] MEDS ORDERED: 0.9 % Sodium Chloride 1,000 ML ONE (14:17)
[2018-03-24] MEDS ORDERED: Naloxone 0.4 MG/ML INJ IVP PRN (14:23)
[2018-03-24] MEDS ORDERED: *HR* Heparin 5,000 UNIT/ML VIAL SQ SCH (14:30)
[2018-03-24] MEDS ORDERED: Ipratropium/Albuterol Neb 3 ML IH PRN (14:30)
[2018-03-24 14:33] LABS: INR 1.3; Prothrombin Time 14.3 Seconds (9.4-12.1)
[2018-03-24] MEDS ORDERED: Vancomycin 1 EACH in 0.9 % Sodium Chloride 250 ML IVPB PRN (15:00)
[2018-03-24] MEDS: methylPREDNISolone 125 MG/2 ML VIAL IVP SCH (15:18)
[2018-03-24 15:55] LABS: Hepatitis B Surface Antigen Nonreactive (Nonreactive)
[2018-03-24] MEDS: Ipratropium/Albuterol Neb 3 ML IH SCH ×2 (15:56→20:42)
--- NOTE | 2018-03-24 16:11 | Electrocardiograph Report ---
[place] [facility] Date: 2018-03-24 Pat Name: Paul Castillo Department: EXAM9 Room: 2A47 Gender: M [employer]: : 1950 Requested By: Harper Alexander Order Number: [id number] Reading MD: Bandar Reyes Measurements Intervals [place] Rate: 95 P: 67 CA: 183 QRS: 94 QRSD: 78 T: 65 QT: 348 QTc: 438 Interpretive Statements Sinus rhythm Multiple premature complexes, vent & supraven Right axis deviation Nonspecific T abnormalities, anterior leads Electronically Signed On 03-24-2018 16:09:57 EDT by Bandar Reyes
--- NOTE | 2018-03-24 19:17 | Pulmonology Consult Note ---
Date of Encounter: 03/24/18 Time of Encounter: 13:00 Assessment and Plan (1) Acute and chronic respiratory failure Current Visit: Yes Status: Acute Contributed by COPD exacerbation secondary to pneumonia complicated by congestive heart failure in the setting of end-stage renal disease to give saturation between 88-90% to liberate oxygen as tolerated. We will get arterial blood gas. If patient work of breathing worsens please place on BiPAP 05/06. Qualifiers: Respiratory failure complication: hypoxia Qualified Code(s): J96.21 - Acute and chronic respiratory failure with hypoxia (2) CHF (congestive heart failure) Current Visit: Yes Status: Acute Fluid management according to nephrology patient is going to get dialysis today looks like he will get some fluid removed during his dialysis session.Patient will need good blood pressure to control after load. Qualifiers: Heart failure type: diastolic Heart failure chronicity: acute on chronic Qualified Code(s): I50.33 - Acute on chronic diastolic (congestive) heart failure (3) COPD exacerbation Current Visit: Yes Status: Acute To continue scheduled bronchodilators, steroids. (4) Pneumonia Current Visit: No Status: Acute The previous pneumonia was in the left lingula will get a CT chest to make sure the pneumonia is not worsening he will need optimization of fluid status and COPD exacerbation and hemoptysis can be due to bronchial inflammation . Told him to collect sputum in the sputum cup if there is significant hemoptysis will pursue with bronchoscopy If the hemoptysis is not getting worse and will hold of bronchoscopy so we can optimize his fluid status and COPD exacerbation. Qualifiers: Pneumonia type: due to unspecified organism Laterality: bilateral Lung location: lower lobe of lung Qualified Code(s): J18.1 - Lobar pneumonia, unspecified organism (5) Obesity (BMI 30-39.9) Current Visit: No Status: Chronic History of Present Illness Consult date: 03/24/18 Requesting physician: Harper Alexander Reason for consult: cough, COPD, pneumonia Chief complaint: shortness of breadth with increased sputum production History of present illness: 67-year-old male with past medical history significant for COPD, CHF, end-stage renal disease comes with few days increased shortness of breath and worsening cough or sputum production from his baseline has some tinge of hemoptysis with increased oxygen requirements was seen by his enrobing machine operator in the clinic found to be in acute on chronic hypoxic respiratory failure patient was admitted for further evaluation. Patient chest x-ray showed improving lingular masslike consolidation as some pulmonary congestion and also has some pleural effusion patient requiring increased oxygen requirements around 10 L high flow. Patient denies any fever or chills denies any other constitutional symptoms denies any chest pain or chest tightness. Patient denies any active GERD or neuro symptoms denies any headache or any other eye symptoms denies any skin symptoms patient with end-stage renal disease on dialysis today it is regular dialysis day. Patient was admitted and pulmonary was consult her for worsening acute on chronic hypoxic respiratory failure Past Med Surg Social Fam HX - Past Medical History Medical history: cancer, CHF, COPD, dialysis, hypertension, renal disease Additional medical history: skin cancer, hiatal hernia Psychiatric history: no psych history - Social History Smoking Status: Former smoker Smokeless Tobacco Status: Yes Alcohol use: none Drug use: none - Family History Mother Hx Family Endocrine Disorder: Yes (DM) Medications and Allergies Albuterol Sulfate [Ventolin Hfa] 2 puff IH Q4H 08/31/17 [History] Metoprolol [Lopressor] 25 mg PO DAILY 08/31/17 [History] Aspirin [Adult Aspirin] 81 mg PO DAILY 03/24/18 [History] Budesonide [Pulmicort Flexhaler 180mcg] 2 puff IH BID 03/24/18 [History] Calcium Carbonate 1,300 mg PO DAILY 03/24/18 [History] Cholecalciferol (D-3) [Vitamin D] 1,000 unit PO DAILY 03/24/18 [History] Folic Acid/Vit B Complex and C [Dialyvite Tablet] 1 tab PO DAILY 03/24/18 [History] Sevelamer [Renvela] 1,600 mg PO TID 03/24/18 [History] Tiotropium [Spiriva] 1 puff IH DAILY 03/24/18 [History] Allergy/AdvReac Type Severity Reaction Status Date / Time Amoxicillin Allergy Rash Verified 03/10/18 13:35 Penicillins AdvReac Hives Verified 08/31/17 01:38 All Systems: The remainder of the systems were reviewed and are negative Physical Examination Vital Signs: Vital Signs, Last 4 Hours Temp Pulse Resp BP Pulse Ox 03/24/18 12:28 84 18 176/78 94 03/24/18 11:05 85 20 156/82 97 03/24/18 10:04 94 16 159/93 96 03/24/18 10:01 98.3 F 97 22 132/79 94 03/24/18 10:00 94 03/24/18 09:53 98.3 F 97 22 132/79 74 General appearance: appears uncomfortable Mallampati (class): 3 Effort: mildly labored Auscultation: bilateral: diminished breath sounds (bilateral bibasilar diminshed breadth sounds ), rales (some scattered rales ) Cardiovascular: regular rate and rhythm Gastrointestinal: other (obese distended abdomen ) Results - Laboratory Findings CBC and BMP: 03/24/18 10:06 03/24/18 10:06 Abnormal lab findings: Abnormal lab results RBC 3.22 M/mcL (4.19-5.50) L 03/24/18 10:06 Hgb 8.8 g/dL (12.9-16.9) L 03/24/18 10:06 Hct 30.2 % (37.5-50.1) L 03/24/18 10:06 MCH 27.3 pg (28.0-33.3) L 03/24/18 10:06 MCHC 29.1 g/dL (31.6-35.5) L 03/24/18 10:06 RDW 16.8 % (11.5-14.5) H 03/24/18 10:06 MPV 9.1 fL (9.4-12.4) L 03/24/18 10:06 BUN 60 mg/dL (8-23) H 03/24/18 10:06 Creatinine 7.87 mg/dL (0.70-1.30) H 03/24/18 10:06 Est GFR ( Amer) 8 (> 60) L 03/24/18 10:06 Est GFR (Non-Af Amer) 7 (> 60) L 03/24/18 10:06 Calculated Osmolality 301 (280-300) H 03/24/18 10:06 Troponin I 0.05 ng/mL (< 0.04) H* 03/24/18 10:06 B-Natriuretic Peptide 3475 pg/mL (Less than 100) H 03/24/18 10:06 - Clinical Findings Intake & Output: Intake & Output 03/23/18 03/24/18 03/24/18 23:59 07:59 15:59 Weight 99.337 kg Consult Discharge Plan - Plan Referrals: NONE,PCP [Primary Care Provider] -
--- NOTE | 2018-03-24 19:24 | Internal Med History&Physical ---
Addendum entered and electronically signed by Zack Ribera 03/25/18 07:01: Original Note: <Zack Ribera - Last Filed: 03/24/18 14:35> Date of Encounter: 03/24/18 Time of Encounter: 14:40 Internal Medicine - H&P: HPI Chief complaint: low oxygen Admitted From: Emergency Dept Plans for Post Hospital Care: Home History of present illness: Mr. Castillo is a 67 year old male with PMH of Brendon's granulomatosis, HTN, COPD, CHF, ESRD on dialysis. He presents today from the pulmonologists office for oxgen saturation in the 60's and it took 5L to get back to the 90's. The pt was recently here for pneumonia and was seen in the ED and d/c on 10days of aq. He continued to have symptoms and at follow up today was sent to the ED. He reports bloody sputum that has been going on for 1 wk. He has chronic SOB at baseline and is chronically on oxygen. - baseline O2 is 3L - pt has a productive cough but no chest pain. He denies abd pain, N/V/D, palpiltations or blurry vision - he has lost about 40 lbs in the last 1mos - he denies any night sweats, fevers or chills He gets dialysis MWF and didn't recieve his dialysis today. He has a port in place and is getting his AV fistula. Past Med Surg Social Fam HX - Past Medical History Medical history: cancer, CHF, COPD, dialysis, hypertension, renal disease Additional medical history: skin cancer, hiatal hernia Psychiatric history: no psych history - Social History Smoking Status: Former smoker Smokeless Tobacco Status: Yes Alcohol use: none Drug use: none - Family History Mother Hx Family Endocrine Disorder: Yes (DM) Internal Medicine - H&P: Meds Albuterol Sulfate [Ventolin Hfa] 2 puff IH Q4H 08/31/17 [History] Metoprolol [Lopressor] 25 mg PO DAILY 08/31/17 [History] Aspirin [Adult Aspirin] 81 mg PO DAILY 03/24/18 [History] Budesonide [Pulmicort Flexhaler 180mcg] 2 puff IH BID 03/24/18 [History] Calcium Carbonate 1,300 mg PO DAILY 03/24/18 [History] Cholecalciferol (D-3) [Vitamin D] 1,000 unit PO DAILY 03/24/18 [History] Folic Acid/Vit B Complex and C [Dialyvite Tablet] 1 tab PO DAILY 03/24/18 [History] Sevelamer [Renvela] 1,600 mg PO TID 03/24/18 [History] Tiotropium [Spiriva] 1 puff IH DAILY 03/24/18 [History] Allergy/AdvReac Type Severity Reaction Status Date / Time Amoxicillin Allergy Rash Verified 03/10/18 13:35 Penicillins AdvReac Hives Verified 08/31/17 01:38 All Systems PM: A 10-system review of systems was performed and is negative for pertinent findings except as documented above in the HPI. - Constitutional Constitutional: fatigue, weight loss, no chills, no fever(s), no night sweats - EENT Eyes: no blurry vision, no change in vision - Cardiovascular Cardiovascular ROS IM: dyspnea, dyspnea on exertion, no chest pain, no palpitations - Respiratory Respiratory: cough, dyspnea, hemoptysis, dyspnea on exertion, change in phlegm color - Gastrointestinal Gastrointestinal: no abdominal pain, no diarrhea, no nausea, no vomiting - Musculoskeletal Musculoskeletal ROS IM: muscle weakness - Neurological Neurological ROS: no dizziness, no tremor(s) - Constitutional Vitals: Temp Pulse Resp BP Pulse Ox 97.9 F 88 20 160/81 91 03/24/18 13:52 03/24/18 13:52 03/24/18 13:52 03/24/18 13:52 03/24/18 13:53 Exam: General - AOx3, NAD, laying in bed HEENT - NCAT, missing part of his left ear, moist mucus membranes Cardio - s1s2 cta no mrg rrr lungs -decreased breath sounds bilaterally, some crackles at the base no wheezes abd - NTND, no rebound or guarding, obese abd Neuro - no FND extremities - 1+ pitting edema Skin - no rash, no open wound Internal Med - H&P Results - Labs CBC & Chem 7: 03/24/18 10:06 03/24/18 10:06 Labs: Short CBC 03/24/18 Range/Units 10:06 WBC 9.5 (4.3-11.1) K/mcL Hgb 8.8 L (12.9-16.9) g/dL Hct 30.2 L (37.5-50.1) % Plt Count 270 (140-400) K/mcL Neutrophils # 6.9 (1.6-8.9) K/mcL BMP 03/24/18 10:06 Sodium 137 Potassium 4.7 Chloride 102 Carbon Dioxide 23 BUN 60 H Creatinine 7.87 H Glucose 97 Calcium 8.7 Cardiac Enzymes 03/24/18 Range/Units 10:06 Troponin I 0.05 H* (< 0.04) ng/mL - Impressions ITS Impressions Chest X-Ray 03/24/18 10:14 IMPRESSION: Previously noted masslike consolidation in the lingula of the left upper lobe on prior CT exam 03/10/2018 appears improved, given differences in modality. Continued follow-up recommended. Worsened airspace opacity more inferiorly to the left lung base along with blunting of the left costophrenic angle concerning for worsened left pleural effusion and associated atelectasis or infiltrate. Clinical correlation and continued follow-up recommended. Superimposed worsened streaky/reticular opacities to the bilateral mid to lower lung zones, left more than right, which may be on the basis of atelectasis, infiltrates and/or interstitial edema. No overt pulmonary edema noted. Superimposed COPD changes redemonstrated. D/ / 03/24/2018 10:56:09 Nitin Field MD / Summer Veliz Interpreting Provider: Nitin Field MD - Assessment and plan (1) COPD exacerbation Current Visit: Yes Status: Acute Assessment and plan: Pt presents with increased sputum productive , bloody in color - chronically uses 3L at baseline, currently 10L and O2 sat is 91% - CT scan on 03/10 - showed multiple nodules - masslike consolidation within the lingula - pneumonia vs neoplasm CXR - Superimposed worsened streaky/reticular opacities , may be atelectasis, infiltrates and/or interstitial edema. - No overt pulmonary edema Plan: - methylprednisone 60mg IVP q8hr - duonebs scheduled and prn for SOB - Azithromycin daily, vancomycin and cefepime day 1 Give cefepime after dialysis, will speak to pharmacist about this Blood cultures pending Strep pneumo, mycplasma, and legionella antigens pending - CT scan of chest pending - respiratory following, appreciate recommendations (2) Troponin level elevated Current Visit: Yes Status: Acute Assessment and plan: Troponin at 0.05 - most likely a type II DE due to fluid overload Plan: - cycle troponins x3 (3) History of chronic CHF Current Visit: No Status: Chronic Assessment and plan: Not in acute exacerbation No recent ECHO Plan: - ECHO pending - cardiac diet - fluid resitrction diet to 1.5 L per day (4) ESRD (end stage renal disease) on dialysis Current Visit: Yes Status: Acute Assessment and plan: On dialysis MWF On admission - BUN 60 - Creatinine 7.87 Plan: - monitor I&O's - nephrology following, appreciate recommendations - avoid nephrotoxins (5) Essential hypertension Current Visit: No Status: Chronic Assessment and plan: BP 160/81 - continue lopressor - add hydraolazine 10mg IVP q6hr prn SBP >180 (6) Obesity (BMI 30-39.9) Current Visit: No Status: Chronic Assessment and plan: BMI 34.4 - lifestyle modifications (7) DVT prophylaxis Current Visit: No Status: Acute Assessment and plan: heparin sq (8) Shiloh's granulomatosis (granulomatosis with polyangiitis) Current Visit: No Status: Acute Assessment and plan: May be contributing to hemoptysis and to renal failure - (+) serine protease 3 ab on 08/2017 (9) HCAP (healthcare-associated pneumonia) Current Visit: Yes Status: Acute Assessment and plan: See plan as above for COPD exacerbation (10) Fluid overload Current Visit: Yes Status: Acute Assessment and plan: BNP on admission is 3475 Plan: - will consider lasix 20mg IVP if okay with nephro Qualifiers: Hypervolemia type: unspecified Qualified Code(s): E87.70 - Fluid overload, unspecified (11) Lung nodule Current Visit: Yes Status: Acute Assessment and plan: Lung nodules on CT scan last ER visit - plan for outpatient follow up - Time Spent With Patient Total time spent is greater than 50% in coordination of care (as documented) at patient's floor/unit and/or counseling patient: <Betty Crawley - Last Filed: 03/24/18 17:28> Internal Medicine - H&P: HPI History of present illness: Mr. Castillo is a 67 year old male All Systems PM: A 10-system review of systems was performed and is negative for pertinent findings except as documented above in the HPI. - Constitutional Vitals: Temp Pulse Resp BP Pulse Ox 97.9 F 88 20 160/81 91 03/24/18 13:52 03/24/18 13:52 03/24/18 13:52 03/24/18 13:52 03/24/18 13:53 Internal Med - H&P Results - Labs CBC & Chem 7: 03/24/18 10:06 03/24/18 10:06 Labs: Short CBC 03/24/18 Range/Units 10:06 WBC 9.5 (4.3-11.1) K/mcL Hgb 8.8 L (12.9-16.9) g/dL Hct 30.2 L (37.5-50.1) % Plt Count 270 (140-400) K/mcL Neutrophils # 6.9 (1.6-8.9) K/mcL BMP 03/24/18 10:06 Sodium 137 Potassium 4.7 Chloride 102 Carbon Dioxide 23 BUN 60 H Creatinine 7.87 H Glucose 97 Calcium 8.7 Cardiac Enzymes 03/24/18 Range/Units 10:06 Troponin I 0.05 H* (< 0.04) ng/mL - Impressions ITS Impressions Chest X-Ray 03/24/18 10:14 IMPRESSION: Previously noted masslike consolidation in the lingula of the left upper lobe on prior CT exam 03/10/2018 appears improved, given differences in modality. Continued follow-up recommended. Worsened airspace opacity more inferiorly to the left lung base along with blunting of the left costophrenic angle concerning for worsened left pleural effusion and associated atelectasis or infiltrate. Clinical correlation and continued follow-up recommended. Superimposed worsened streaky/reticular opacities to the bilateral mid to lower lung zones, left more than right, which may be on the basis of atelectasis, infiltrates and/or interstitial edema. No overt pulmonary edema noted. Superimposed COPD changes redemonstrated. D/ / 03/24/2018 10:56:09 Nitin Field MD / Summer Veliz Interpreting Provider: Nitin Field MD - Assessment and plan (1) Essential hypertension Current Visit: No Status: Chronic (2) Obesity (BMI 30-39.9) Current Visit: No Status: Chronic (3) DVT prophylaxis Current Visit: No Status: Acute (4) Shiloh's granulomatosis (granulomatosis with polyangiitis) Current Visit: No Status: Acute (5) HCAP (healthcare-associated pneumonia) Current Visit: Yes Status: Acute (6) Fluid overload Current Visit: Yes Status: Acute Qualifiers: Hypervolemia type: unspecified Qualified Code(s): E87.70 - Fluid overload, unspecified (7) COPD exacerbation Current Visit: Yes Status: Acute (8) History of chronic CHF Current Visit: No Status: Chronic (9) ESRD (end stage renal disease) on dialysis Current Visit: Yes Status: Acute (10) Troponin level elevated Current Visit: Yes Status: Acute (11) Lung nodule Current Visit: Yes Status: Acute - Time Spent With Patient Total time spent is greater than 50% in coordination of care (as documented) at patient's floor/unit and/or counseling patient: - Attending Attestation I examined this patient and my medical decision-making was reviewed with the Resident Physician. I agree with the documented findings, disposition and aniceto tment plan as described except to the extent set forth below. Patient is a 67 year old male with history of ESRD on dialysis M/W/F, Shiloh's granulomatosis, COPD, HTN presented from Pulmonology office for SOB wit hypoxia. He was sent here for admission. He first to the ED on 03/10/18 for hemoptysis and SOB. At the time, the running diagnosis with pneumonia versus lung mass. During that time, the ED physician recommended patient to be admitted but patient decided instead to be discharged home with follow-up with Pulmonology as outpatient. He was sent home with Marcy. He states he has not really improved since then. He has dyspnea at rest but notably gets worse with exe rtion. He denies orthopnea but states that he wears a CPAP mask at night. He has a history of COPD and does not readily identify any COPD triggers. He notes that his is a sick contact with some cold-like symptoms. Patient is also having some episodes intermittent chest pain in past several months. He has extremity edema at baseline, does think it is only This pain lasts for seconds at a time that is substernal in location. He denies any fevers/chills, n/v, numbness/tingling, palpitations, abdominal pain. He still has hemoptysis. Upon presentation to the ED, he required supplemental O2, Nephrology was consulted, and Pulmonology was consulted. He was ordered a dose of Vancomycin, Cefepime, and Azithromycin. A chest x-ray showed prior masslike consolidation in KATARINA that appears improved, and a worsened opacity in LLL with likely pleural effusion with infiltrate. WBC count is normal, creatinine 7.87 consistent with ESRD, BNP of 3,475, troponin borderline elevated 0.05 with repeat of 0.04. EKG showed sinus rhythm with no acute ST or T wave changes from prior EKG. Vitals: reviewed patient requires high flow O2 via nasal cannula, BP 156/82, HR 84, afebrile. Physical exam significant for a obese male in mild respiratory distress. Lung auscultation showed poor aeration of lung norris with bibasilar rales, faint end expiratory wheezing. Abdomen was slightly distended, but soft, with normal bowel sounds. Skin was warm and dry, extremities showed no cyanosis, trace bipedal non-pitting edema. Pertinent labs/imaging as mentioned above. A/P: 1 - Acute respiratory and chronic respiratory failure with hypoxia 2 - Acute decompensated heart failure 3 - Chest pain 4 - ESRD 5 - Shiloh's granulomatosis 6 - COPD 7 - Hypertension 8 - AAA 9 - Hemoptysis - possibly related to infection, Shiloh's granulomatosis, malignancy, or other. 10 - DVT prophylaxis. - Plan for dialysis now, will monitor respiratory status after fluid removal. - Pulmonology consulted, recommendations appreciated. - Fluid restriction diet - Solu Medrol 60 mg Q8H, scheduled Duo Neb therapy - Elevated troponins have been cycled and showed improved. Possibly demand ischemia versus ESRD. - Hold off of heparin right until further eval of hemoptysis. Do EPCD for now.
--- NOTE | 2018-03-24 19:46 | Nephrology Consult Note ---
Date of Encounter: 03/24/18 Time of Encounter: 17:25 Assessment and Plan (1) ESRD (end stage renal disease) on dialysis Current Visit: Yes Status: Chronic Pt was s/e while on HD. Next HD would be planned for Tuesday. Dialysis note: he was also seen and examined while on dialysis with adequate access pressures and flows. I will be available this weekend if needed. (2) HCAP (healthcare-associated pneumonia) Current Visit: Yes Status: Acute per primary team (3) Anemia Current Visit: Yes Status: Chronic Anemic and typically requires high doses of DOREEN, which I'll order. Goal hgb 10- 11. Transfuse per parameters as per primary team and may need to arrange for Tuesday if needed. Qualifiers: Anemia type: due to chronic kidney disease Chronic kidney disease stage: on chronic dialysis Qualified Code(s): N18.6 - End stage renal disease; D63.1 - Anemia in chronic kidney disease; Z99.2 - Dependence on renal dialysis (4) CHF (congestive heart failure) Current Visit: Yes Status: Acute May need extra HD next week, to challenge his dry weight. Qualifiers: Heart failure type: diastolic Heart failure chronicity: acute on chronic Qualified Code(s): I50.33 - Acute on chronic diastolic (congestive) heart failure History of Present Illness - Reason for Consult Consult date: 03/24/18 end stage renal disease Requesting physician: Betty Crawley - Chief Complaint ESRD - History of Present Illness Paul Castillo is a very pleasant 67 y/o WM with a pmh of ESRD on HD MWF who presented with shortness of breath and cough. Nephrology was consulted given his hx of chronic dialysis. He last dialyzed the Tuesday before this admission and denied missing any recent dialysis at his unit located at the [facility] in [place], [place]. His primary retail receiving clerk is listed as Dr. Jones. The pt said that he's been coughing and becoming progressively short of breath. He denied N/V or D or having visible blood in the urine problems with his dialysis catheter or any recently problems such as low BP during his last week of dialysis. Past Med Surg Social Fam HX - Past Medical History Medical history: cancer, CHF, COPD, dialysis, hypertension, renal disease Additional medical history: skin cancer, hiatal hernia Psychiatric history: no psych history - Social History Smoking Status: Former smoker Smokeless Tobacco Status: Yes Alcohol use: none Drug use: none - Family History Mother Hx Family Endocrine Disorder: Yes (DM) Father Living Status: Hx Family Respiratory Disorders: Yes Medications and Allergies Albuterol Sulfate [Ventolin Hfa] 2 puff IH Q4H 08/31/17 [History] Metoprolol [Lopressor] 25 mg PO BID 08/31/17 [History] Aspirin [Adult Aspirin] 81 mg PO DAILY 03/24/18 [History] Budesonide [Pulmicort Flexhaler 180mcg] 2 puff IH BID 03/24/18 [History] Calcium Carbonate 1,300 mg PO DAILY 03/24/18 [History] Cholecalciferol (D-3) [Vitamin D] 1,000 unit PO DAILY 03/24/18 [History] Folic Acid/Vit B Complex and C [Dialyvite Tablet] 1 tab PO DAILY 03/24/18 [History] Sevelamer [Renvela] 1,600 mg PO TID 03/24/18 [History] Tiotropium [Spiriva] 1 puff IH DAILY 03/24/18 [History] Allergy/AdvReac Type Severity Reaction Status Date / Time Amoxicillin Allergy Rash Verified 03/10/18 13:35 Penicillins AdvReac Hives Verified 08/31/17 01:38 Review of Systems All Systems: reviewed and no additional remarkable complaints except as stated Exam - Vital Signs Vital signs: Initial Vital Signs Temp Pulse Resp BP Pulse Ox 98.3 F 97 22 132/79 74 03/24/18 09:53 03/24/18 09:53 03/24/18 09:53 03/24/18 09:53 03/24/18 09:53 Vital Signs - Last 8 Hours Temp Pulse Resp BP Pulse Ox 03/24/18 19:00 200/108 03/24/18 18:45 191/102 03/24/18 18:30 199/96 03/24/18 18:15 188/89 03/24/18 18:00 193/102 03/24/18 17:45 202/105 03/24/18 17:30 193/102 03/24/18 17:15 194/107 03/24/18 17:00 197/100 03/24/18 16:45 188/02 03/24/18 16:30 185/95 03/24/18 16:15 98.1 F 20 186/104 03/24/18 13:53 91 03/24/18 13:52 97.9 F 88 20 160/81 94 03/24/18 12:28 84 18 176/78 94 Intake and Output 03/24/18 03/24/18 03/24/18 07:59 15:59 23:59 Intake Total 600 / 600 Balance 600 / 600 Intake: Oral 0 / 0 Intake, Rinseback and Flushes 600 / 600 Other: Weight 99.6 kg Hemodialysis Net Fluid Removed 2055 (mL) Patient Weight 03/24/18 23:59 Weight 99.6 kg - General Appearance General appearance: well-developed, well-nourished, appears started age, chronically ill, fatigue, frail EENT: ATNC, PERRL, mucous membranes moist Neck: supple Respiratory: wheezing, course breath sounds Cardiology: edema (trace ankle edema b/l), normal S1, normal S2 - Dialysis Access Dialysis Vascular Access: Venous Catheter (Right Permacath was in place) Gastrointestinal: normoactive bowel sounds, no tenderness, no guarding Integumentary: no rash, ecchymotic Neurologic: no focal deficit, no asterixis, alert and oriented x3 Musculoskeletal: no deformities, no cyanosis, no clubbing Psychiatric: mood/affect appropriate, cooperative Results - Lab Results 03/27/18 14:08 03/27/18 04:28 Most recent lab results Calcium 8.7 mg/dL (8.6-10.3) 03/24/18 10:06 I reviewed his labs, vitals, imaging, progress notes, med list and outside [facility] dialysis medical records including run sheets and dialysis standing orders to mimic while inpt. Consult Discharge Plan - Plan Referrals: NONE,PCP [Primary Care Provider] -
[2018-03-24] MEDS ORDERED: Isovue-370 500 ML INFUS..BTL IVP ONE (22:44)
[2018-03-25] MEDS: Ipratropium/Albuterol Neb 3 ML IH SCH ×7 (00:25→23:44)
[2018-03-25] MEDS: methylPREDNISolone 125 MG/2 ML VIAL IVP SCH ×3 (00:48→20:55)
--- NOTE | 2018-03-25 01:05 | Event Note ---
Date of Encounter: 03/25/18 Time of Encounter: 00:45 Alerted by [facility] of patient's CT of the chest results which showed increasing multifocal airspace disease bilaterally with bilateral increasing pleural effusions. Findings are greater on the left. Pneumonia is favored over edema. Underlying neoplastic nodules would be difficult to exclude. Continued follow-up is recommended until resolution. Patient admitted with COPD exacerbation and HCAP and is currently on by mouth azithromycin 500 mg daily, cefepime 1000 mg IVP daily, and vancomycin with pharmacy dosing for infection coverage. WBC currently 9.5 on 03/24/18. Creatinine currently 7.7 and GFR 7 on 03/24/18. BNP 3475. VS: 98.5F temp, HR 94, RR 18, BP 159/86, and SPO2 90% via nasal cannula. Patient to be monitored closely overnight.
[2018-03-25 04:25] LABS: ABG Base Excess 5 mEq/L (-2 to 3); ABG HCO3 30 mEq/L (21-27); ABG Oxygen Saturation 92 % (95-98); ABG PCO2 43 mmHg (35-45); ABG PH 7.45 pH Units (7.32-7.45); ABG PO2 62 mmHg (85-104); ABG TCO2 31 mEq/L (20-26)
[2018-03-25 06:17] LABS: Basophils % 0.2 %; Hematocrit 26.2 % (37.5-50.1); Hemoglobin 7.9 g/dL (12.9-16.9); Immature Granulocytes % 1.3 % (0-4); Lymphocytes # 0.3 K/mcL (0.6-4.6); Lymphocytes % 4.8 %; Mean Corpuscular HGB Conc 30.2 g/dL (31.6-35.5); Mean Corpuscular Hemoglobin 27.6 pg (28.0-33.3); Mean Corpuscular Volume 91.6 fL (83.0-100.0); Mean Platelet Volume 9.3 fL (9.4-12.4); Monocytes # 0.2 K/mcL (0.0-1.3); Monocytes % 3.4 %; Neutrophils # 4.7 K/mcL (1.6-8.9); Platelet Count 230 K/mcL (140-400); Red Blood Count 2.86 M/mcL (4.19-5.50); Red Cell Distribution Width 16.9 % (11.5-14.5); Segmented Neutrophils % 90.3 %
[2018-03-25 06:37] LABS: Albumin 3.2 g/dL (3.5-5.7); Albumin/Globulin Ratio 1.1 (1.1-2.2); Bilirubin,Total 1.2 mg/dL (0.3-1.0); Calcium 8.8 mg/dL (8.6-10.3); Globulin 2.9 g/dL (2.4-3.5); Potassium 3.9 mEq/L (3.5-5.1); Total Protein 6.1 g/dL (6.4-8.9)
[2018-03-25] MEDS: Tiotropium 18 MCG inhalation IH SCH (07:37)
[2018-03-25] MEDS: Aspirin Enteric Coated 81 MG Tablet PO SCH (07:54)
[2018-03-25] MEDS: Azithromycin 250 MG TABLET PO SCH (07:54)
[2018-03-25] MEDS: Multivit/Ca/Min/Fe/FA 1 TAB TABLET PO SCH (07:54)
[2018-03-25] MEDS: Cholecalciferol (D-3) 1,000 UNIT TABLET PO SCH (07:54)
[2018-03-25] MEDS: Cefepime HCl 1,000 MG in Water for inj. (sterile) 20 ML 10 ML IVP SCH (07:55)
--- NOTE | 2018-03-25 08:59 | Internal Med Progress Note ---
<Zack Ribera S - Last Filed: 03/25/18 10:40> Hospitalist Progress Note - Encounter Date of Encounter: 03/25/18 Time of Encounter: 08:57 - Subjective Interval History: Mr. Castillo is a 67 year old male with PMH of Brendon's granulomatosis, HTN, COPD, CHF, ESRD on dialysis. He presented 03/24/18 from the pulmonologists office for oxgen saturation in the 60's and it took 5L to get back to the 90's. The pt was recently here for pneumonia and was seen in the ED and d/c on 10days of levaquin. He continued to have symptoms and at follow up with pulmonology was sent to the ED. He reported bloody sputum that has been going on for 1 wk. He has chronic SOB at baseline and is chronically on oxygen. - baseline O2 is 3L - pt has a productive cough but no chest pain. He denies abd pain, N/V/D, palpiltations or blurry vision - he has lost about 40 lbs in the last 1mos - he denies any night sweats, fevers or chills He gets dialysis MWF. Dialyzed yesterday. Pt has no complaints this morning. He denies chest pain. SOB improving. No N/V/D. No abd pain Pt is currently NPO, may have bronchoscopy today if pulm approves - Exam Vitals: Temp Pulse Resp BP Pulse Ox 98.6 F 89 17 128/66 92 03/25/18 05:23 03/25/18 07:45 03/25/18 05:23 03/25/18 07:45 03/25/18 07:45 Exam: General - AOx3, NAD, laying in bed HEENT - NCAT, missing part of his left ear, moist mucus membranes Cardio - s1s2 cta no mrg rrr lungs -decreased breath sounds bilaterally, airflow better this morning, wheezing on expiration abd - NTND, no rebound or guarding, obese abd Neuro - no FND extremities - 1+ pitting edema Skin - no rash, no open wound - Assessment and Plan (1) COPD exacerbation Current Visit: Yes Status: Acute Assessment and Plan: Pt presents with increased sputum productive , bloody in color - chronically uses 3L at baseline, currently 11L and O2 sat is 92% CT scan on 03/10 - showed multiple nodules - masslike consolidation within the lingula - pneumonia vs neoplasm Repeat CT scan on 03/24 - increasing multifocal airspace disease B/L with bilat increasing pleural effusions - pneumonia favored over edema - ?neoplastic process CXR - Superimposed worsened streaky/reticular opacities , may be atelectasis, infiltrates and/or interstitial edema. - No overt pulmonary edema Plan: - methylprednisone 60mg IVP q12hr - duonebs scheduled and prn for SOB - Azithromycin daily, vancomycin and cefepime day 2 Give cefepime after dialysis, will speak to pharmacist about this Blood cultures pending Strep pneumo, mycplasma, and legionella antigens pending - respiratory following, appreciate recommendations NPO currently, possibly getting bronchoscopy if approved (2) HCAP (healthcare-associated pneumonia) Current Visit: Yes Status: Acute Assessment and Plan: See plan as above for COPD exacerbation (3) Essential hypertension Current Visit: No Status: Chronic Assessment and Plan: BP 128/66 - continue lopressor - add hydraolazine 10mg IVP q6hr prn SBP >180 (4) Obesity (BMI 30-39.9) Current Visit: No Status: Chronic Assessment and Plan: BMI 35 - lifestyle modifications (5) DVT prophylaxis Current Visit: No Status: Acute Assessment and Plan: scd (6) Shiloh's granulomatosis (granulomatosis with polyangiitis) Current Visit: No Status: Chronic Assessment and Plan: May be contributing to hemoptysis and to renal failure - (+) serine protease 3 ab on 08/2017 (7) Fluid overload Current Visit: Yes Status: Acute Assessment and Plan: BNP on admission is 3475 Plan: - strict I&O's - fluid restriction diet 1.5L - ECHO pending (8) History of chronic CHF Current Visit: No Status: Chronic Assessment and Plan: Not in acute exacerbation No recent ECHO Plan: - ECHO pending - cardiac diet - fluid resitrction diet to 1.5 L per day (9) ESRD (end stage renal disease) on dialysis Current Visit: Yes Status: Chronic Assessment and Plan: On dialysis MWF On admission - BUN 60 - Creatinine 7.87 Today: - BUN 37 - Creatinine 5.18 Dialysis completed yesterday Plan: - monitor I&O's - nephrology following, appreciate recommendations - avoid nephrotoxins (10) Troponin level elevated Current Visit: Yes Status: Acute Assessment and Plan: Troponin at 0.05, 0.04 - most likely a type II PA due to fluid overload (11) Lung nodule Current Visit: Yes Status: Acute Assessment and Plan: Lung nodules on CT scan last ER visit - plan for outpatient follow up - Time Spent with Patient Total time spent is greater than 50% in coordination of care (as documented) at patient's floor/unit and/or counseling patient: less than 15 minutes Plan of Care Discussed with: patient Internal Medicine: Result - Labs CBC & Chem 7: 03/25/18 05:52 03/25/18 05:52 Labs: Short CBC 03/24/18 03/25/18 Range/Units 10:06 05:52 WBC 9.5 5.2 (4.3-11.1) K/mcL Hgb 8.8 L 7.9 L (12.9-16.9) g/dL Hct 30.2 L 26.2 L (37.5-50.1) % Plt Count 270 230 (140-400) K/mcL Neutrophils # 6.9 4.7 (1.6-8.9) K/mcL BMP 03/24/18 03/25/18 10:06 05:52 Sodium 137 139 Potassium 4.7 3.9 Chloride 102 99 Carbon Dioxide 23 28 BUN 60 H 37 H Creatinine 7.87 H 5.18 H Glucose 97 179 H Calcium 8.7 8.8 Cardiac Enzymes 03/24/18 03/24/18 Range/Units 10:06 16:03 Troponin I 0.05 H* 0.04 H* (< 0.04) ng/mL Liver Function 03/25/18 Range/Units 05:52 Total Bilirubin 1.2 H (0.3-1.0) mg/dL AST 15 (13-39) Units/L ALT 17 (7-52) Units/L Alkaline Phosphatase 65 (34-104) Units/L Albumin 3.2 L (3.5-5.7) g/dL - ABG Interpretation ABG results: ABG ABG pH 7.45 pH Units (7.32-7.45) 03/25/18 04:20 ABG pCO2 43 mmHg (35-45) 03/25/18 04:20 ABG pO2 62 mmHg (85-104) L 03/25/18 04:20 ABG O2 Saturation 92 % (95-98) L 03/25/18 04:20 PT/INR, D-dimer PT 14.3 Seconds (9.4-12.1) H 03/24/18 13:39 - Impressions Impressions Chest X-Ray 03/24/18 10:14 IMPRESSION: Previously noted masslike consolidation in the lingula of the left upper lobe on prior CT exam 03/10/2018 appears improved, given differences in modality. Continued follow-up recommended. Worsened airspace opacity more inferiorly to the left lung base along with blunting of the left costophrenic angle concerning for worsened left pleural effusion and associated atelectasis or infiltrate. Clinical correlation and continued follow-up recommended. Superimposed worsened streaky/reticular opacities to the bilateral mid to lower lung zones, left more than right, which may be on the basis of atelectasis, infiltrates and/or interstitial edema. No overt pulmonary edema noted. Superimposed COPD changes redemonstrated. D/ / 03/24/2018 10:56:09 Nitin Field MD / Summer Veliz Interpreting Provider: Nitin Field MD Chest CT 03/24/18 13:19 IMPRESSION: Increasing multifocal airspace disease bilaterally with bilateral increasing pleural effusions. Findings are greater on the left. Pneumonia is favored over edema. Underlying neoplastic nodules would be difficult to exclude. Continued follow-up is recommended into resolution. D/ / Paul Jacob / Paul Jacob Interpreting Provider: Paul Jacob Abdomen/Pelvis CT 03/24/18 21:31 IMPRESSION: Slight interval increase in size of the abdominal aortic aneurysm. Low-density renal lesions most likely cysts. Stable calcifications along the pancreas. There is developing multifocal stranding in the fat between the common iliac arteries and extending in the pelvis along the external iliac arteries, slightly greater on the left. This is indeterminate finding with no clear etiology. This appears separate from the aortic aneurysm. This is not likely to be primarily related to the aneurysm of the aorta. Developing retroperitoneal fibrosis is favored. However, inflammatory/infectious process related to the common iliac arteries--arteritis--is possible although less likely. This stranding is clearly separate from the bowel loops in the abdomen and pelvis and there is no wall thickening of the colon. Given that there has been a slight interval change in the size of the aneurysm, however, a short-term follow-up CT angiogram of the abdomen and pelvis is recommended in 2-3 days. Urinary bladder wall thickening is suspected. Attempts were made to contact the referring physician however were unsuccessful over 30 minutes. Instructions were given to the patient's nurse to reference the report for this exam. This was done at 12:33 p.m. RECOMMENDATIONS: Managing Abdominal Aortic Aneurysms 2.6-2.9 cm: Every 5 years* 3.0-3.4 cm: Every 3 years. 3.5-3.9 cm: Every 1 year. 4.0-4.4 cm: Every 1 year. Recommend vascular consultation. 4.5-5.4 cm: Every 6 months. Recommend vascular consultation. Greater than or equal to 5.5 cm: Referral to vascular surgeon. *For abdominal aortas with maximum diameter of 2.6-2.9 cm meeting criteria for AAA (>50% of proximal normal segment). Reference: J Vasc Surg. 2009 Feb;50(4 Suppl):S2-49 D/ / Paul aJcob / Paul Jacob Interpreting Provider: Paul Jacob Consult Discharge Plan - Plan Referrals: NONE,PCP [Primary Care Provider] - <Betty Crawley - Last Filed: 03/25/18 12:37> Hospitalist Progress Note - Exam Vitals: Temp Pulse Resp BP Pulse Ox 98.4 F 87 20 124/65 92 03/25/18 11:44 03/25/18 11:44 03/25/18 11:44 03/25/18 11:44 03/25/18 11:44 - Assessment and Plan (1) Essential hypertension Current Visit: No Status: Chronic (2) Obesity (BMI 30-39.9) Current Visit: No Status: Chronic (3) DVT prophylaxis Current Visit: No Status: Acute (4) Shiloh's granulomatosis (granulomatosis with polyangiitis) Current Visit: No Status: Chronic (5) HCAP (healthcare-associated pneumonia) Current Visit: Yes Status: Acute (6) Fluid overload Current Visit: Yes Status: Acute (7) COPD exacerbation Current Visit: Yes Status: Acute (8) History of chronic CHF Current Visit: No Status: Chronic (9) ESRD (end stage renal disease) on dialysis Current Visit: Yes Status: Chronic (10) Troponin level elevated Current Visit: Yes Status: Acute (11) Lung nodule Current Visit: Yes Status: Acute - Time Spent with Patient Total time spent is greater than 50% in coordination of care (as documented) at patient's floor/unit and/or counseling patient: Internal Medicine: Result - Labs CBC & Chem 7: 03/25/18 05:52 03/25/18 05:52 Labs: Short CBC 03/25/18 Range/Units 05:52 WBC 5.2 (4.3-11.1) K/mcL Hgb 7.9 L (12.9-16.9) g/dL Hct 26.2 L (37.5-50.1) % Plt Count 230 (140-400) K/mcL Neutrophils # 4.7 (1.6-8.9) K/mcL BMP 03/25/18 05:52 Sodium 139 Potassium 3.9 Chloride 99 Carbon Dioxide 28 BUN 37 H Creatinine 5.18 H Glucose 179 H Calcium 8.8 Cardiac Enzymes 03/24/18 Range/Units 16:03 Troponin I 0.04 H* (< 0.04) ng/mL Liver Function 03/25/18 Range/Units 05:52 Total Bilirubin 1.2 H (0.3-1.0) mg/dL AST 15 (13-39) Units/L ALT 17 (7-52) Units/L Alkaline Phosphatase 65 (34-104) Units/L Albumin 3.2 L (3.5-5.7) g/dL - ABG Interpretation ABG results: ABG ABG pH 7.45 pH Units (7.32-7.45) 03/25/18 04:20 ABG pCO2 43 mmHg (35-45) 03/25/18 04:20 ABG pO2 62 mmHg (85-104) L 03/25/18 04:20 ABG O2 Saturation 92 % (95-98) L 03/25/18 04:20 PT/INR, D-dimer PT 14.3 Seconds (9.4-12.1) H 03/24/18 13:39 - Impressions Impressions Chest CT 03/24/18 13:19 IMPRESSION: Increasing multifocal airspace disease bilaterally with bilateral increasing pleural effusions. Findings are greater on the left. Pneumonia is favored over edema. Underlying neoplastic nodules would be difficult to exclude. Continued follow-up is recommended into resolution. D/ / Paul Jacob / Paul Jacob Interpreting Provider: Paul Jacob Abdomen/Pelvis CT 03/24/18 21:31 IMPRESSION: Slight interval increase in size of the abdominal aortic aneurysm. Low-density renal lesions most likely cysts. Stable calcifications along the pancreas. There is developing multifocal stranding in the fat between the common iliac arteries and extending in the pelvis along the external iliac arteries, slightly greater on the left. This is indeterminate finding with no clear etiology. This appears separate from the aortic aneurysm. This is not likely to be primarily related to the aneurysm of the aorta. Developing retroperitoneal fibrosis is favored. However, inflammatory/infectious process related to the common iliac arteries--arteritis--is possible although less likely. This stranding is clearly separate from the bowel loops in the abdomen and pelvis and there is no wall thickening of the colon. Given that there has been a slight interval change in the size of the aneurysm, however, a short-term follow-up CT angiogram of the abdomen and pelvis is recommended in 2-3 days. Urinary bladder wall thickening is suspected. Attempts were made to contact the referring physician however were unsuccessful over 30 minutes. Instructions were given to the patient's nurse to reference the report for this exam. This was done at 12:33 p.m. RECOMMENDATIONS: Managing Abdominal Aortic Aneurysms 2.6-2.9 cm: Every 5 years* 3.0-3.4 cm: Every 3 years. 3.5-3.9 cm: Every 1 year. 4.0-4.4 cm: Every 1 year. Recommend vascular consultation. 4.5-5.4 cm: Every 6 months. Recommend vascular consultation. Greater than or equal to 5.5 cm: Referral to vascular surgeon. *For abdominal aortas with maximum diameter of 2.6-2.9 cm meeting criteria for AAA (>50% of proximal normal segment). Reference: J Vasc Surg. 2009 Feb;50(4 Suppl):S2-49 D/ / Paul Jacob / Paul Jacob Interpreting Provider: Paul Jacob - Attending Attestation I examined this patient and my medical decision-making was reviewed with the Resident Physician. I agree with the documented findings, disposition and treatment plan as described except to the extent set forth below. Patient is a 67 year old male with history of ESRD on dialysis M/W/F, Shiloh's granulomatosis, COPD, HTN presented from Pulmonology office for SOB wit hypoxia. He was sent here for admission. He first to the ED on 03/10/18 for hemoptysis and SOB. At the time, the running diagnosis with pneumonia versus lung mass. During that time, the ED physician recommended patient to be admitted but patient decided instead to be discharged home with follow-up with Pulmonology as outpatient. He was sent home with [place]. He states he has not really improved since then. He has dyspnea at rest but notably gets worse with exertion. He denies orthopnea but states that he wears a CPAP mask at night. He has a history of COPD and does not readily identify any COPD triggers. He notes that his is a sick contact with some cold-like symptoms. Patient is also having some episodes intermittent chest pain in past several months. He has extremity edema at baseline, does think it is only This pain lasts for seconds at a time that is substernal in location. He denies any fevers/chills, n/v, numbness/tingling, palpitations, abdominal pain. He still has hemoptysis. Upon presentation to the ED, he required supplemental O2, Nephrology was consulted, and Pulmonology was consulted. He was ordered a dose of Vancomycin, Cefepime, and Azithromycin. A chest x-ray showed prior masslike consolidation in [place] that appears improved, and a worsened opacity in LLL with likely pleural effusion with infiltrate. WBC count is normal, creatinine 7.87 consistent with ESRD, BNP of 3,475, troponin borderline elevated 0.05 with repeat of 0.04. EKG showed sinus rhythm with no acute ST or T wave changes from prior EKG. Vitals: reviewed patient requires high flow O2 via nasal cannula, BP 156/82, HR 84, afebrile. Physical exam significant for a obese male in mild respiratory distress. Lung auscultation showed poor aeration of lung norris with bibasilar rales, faint end expiratory wheezing. Abdomen was slightly distended, but soft, with normal bowel sounds. Skin was warm and dry, extremities showed no cyanosis, trace bipedal non-pitting edema. Pertinent labs/imaging as mentioned above. 03/25: patient states feeling better after dialysis. He denies chest pain, fevers/chills, n/v. A/P: 1 - Acute respiratory and chronic respiratory failure with hypoxia 2 - Acute decompensated heart failure 3 - Chest pain 4 - ESRD 5 - Shiloh's granulomatosis 6 - COPD 7 - Hypertension 8 - AAA 9 - Hemoptysis - possibly related to infection, Shiloh's granulomatosis, malignancy, or other. 10 - DVT prophylaxis. 11 - Abnormal CT abdomen/pelvis: see above. - Feels better after dialysis with fluid removal. Had 2.6 L fluid removed yeste rday. - Pulmonology consulted, recommendations appreciated - possibly bronchoscopy - Fluid restriction diet - Continue steroids and duo nebs. - Elevated troponins have been cycled and showed improved. Possibly demand ischemia versus ESRD. - EPCD for DVT prophylaxis and monitor hemoptysis - CT abdomen/pelvis: multifocal stranding in fat between common iliac arteries extending to external iliac arteries. Per Radiology reads, possibly retroperitoneal fibrosis vs other etiology, with recommendations to follow-up with CT angiogram in 2-3 days, which would be about 03/26-03/27. Will consider a Vascular Surgery consult in this case. <Zack Ribera - Last Filed: 03/25/18 10:40> (7) Fluid overload Qualifiers: Hypervolemia type: unspecified Qualified Code(s): E87.70 - Fluid overload, unspecified <Betty Crawley - Last Filed: 03/25/18 12:37> (6) Fluid overload Qualifiers: Hypervolemia type: unspecified Qualified Code(s): E87.70 - Fluid overload, unspecified
--- NOTE | 2018-03-25 10:45 | Pulmonology Progress Note ---
Date of Encounter: 03/25/18 Time of Encounter: 09:30 Assessment and Plan (1) Acute and chronic respiratory failure Current Visit: Yes Status: Acute Multifactorial secondary to COPD exacerbation with pneumonia, fluid overload due to diastolic dysfunction and end-stage renal disease patient requiring high flow oxygen is minimal bilateral pleural effusion not much to drain If the pleural effusion worsens will consider ultrasound-guided thoracentesis. The meantime he needs a few extra session of dialysis to help us oxygen requirement to come down and also treating the COPD exacerbation will help in the VQ mismatch. Qualifiers: Respiratory failure complication: hypoxia Qualified Code(s): J96.21 - Acute and chronic respiratory failure with hypoxia (2) CHF (congestive heart failure) Current Visit: Yes Status: Acute fluid management with dialysis will touch base with nephrology for extra sessions of dialysis . Qualifiers: Heart failure type: diastolic Heart failure chronicity: acute on chronic Qualified Code(s): I50.33 - Acute on chronic diastolic (congestive) heart failure (3) COPD exacerbation Current Visit: Yes Status: Acute To continue current regimen of bronchodilators and steroids . (4) Pneumonia Current Visit: No Status: Acute patient hemoptysis is minimal to continue current regimen of antibiotics . Qualifiers: Pneumonia type: due to unspecified organism Laterality: bilateral Lung location: lower lobe of lung Qualified Code(s): J18.1 - Lobar pneumonia, unspecified organism (5) Obesity (BMI 30-39.9) Current Visit: No Status: Chronic Subjective Principal diagnosis: acute on chronic hypoxic respiratory failure Interval history: Patient presented with acute on chronic hypoxic respiratory failure secondary to pneumonia and COPD exacerbation complicated by fluid overload , diastolic dysfunction , ESRD patient is sleeping when I was examining him and he did not have any new complaints says his shortness of breath is lot better still he is on high flow oxygen 11 L. Objective PUL Vital signs: Last Vital Signs Temp 98.6 F 03/25/18 05:23 Pulse 89 03/25/18 07:45 Resp 20 03/25/18 07:37 BP 128/66 03/25/18 07:45 Pulse Ox 92 03/25/18 07:45 Effort: mildly labored Auscultation: bilateral: diminished breath sounds (bilateral basilar diminshed breadth sounds ), wheezes (scattered wheezes) Gastrointestinal: other (obese abdomen ) Results - Laboratory Findings CBC and BMP: 03/25/18 05:52 03/25/18 05:52 ABG ABG pH 7.45 pH Units (7.32-7.45) 03/25/18 04:20 ABG pCO2 43 mmHg (35-45) 03/25/18 04:20 ABG pO2 62 mmHg (85-104) L 03/25/18 04:20 ABG O2 Saturation 92 % (95-98) L 03/25/18 04:20 PT/INR, D-dimer PT 14.3 Seconds (9.4-12.1) H 03/24/18 13:39 Abnormal lab findings: Abnormal lab results RBC 2.86 M/mcL (4.19-5.50) L 03/25/18 05:52 Hgb 7.9 g/dL (12.9-16.9) L 03/25/18 05:52 Hct 26.2 % (37.5-50.1) L 03/25/18 05:52 MCH 27.6 pg (28.0-33.3) L 03/25/18 05:52 MCHC 30.2 g/dL (31.6-35.5) L 03/25/18 05:52 RDW 16.9 % (11.5-14.5) H 03/25/18 05:52 MPV 9.3 fL (9.4-12.4) L 03/25/18 05:52 Lymphocytes # 0.3 K/mcL (0.6-4.6) L 03/25/18 05:52 PT 14.3 Seconds (9.4-12.1) H 03/24/18 13:39 ABG pO2 62 mmHg (85-104) L 03/25/18 04:20 ABG HCO3 30 mEq/L (21-27) H 03/25/18 04:20 ABG Total CO2 31 mEq/L (20-26) H 03/25/18 04:20 ABG O2 Saturation 92 % (95-98) L 03/25/18 04:20 ABG Base Excess 5 mEq/L (-2 to 3) H 03/25/18 04:20 BUN 37 mg/dL (8-23) H 03/25/18 05:52 Creatinine 5.18 mg/dL (0.70-1.30) H 03/25/18 05:52 Est GFR ( Amer) 13 (> 60) L 03/25/18 05:52 Est GFR (Non-Af Amer) 11 (> 60) L 03/25/18 05:52 Glucose 179 mg/dL (70-105) H 03/25/18 05:52 POC Glucose 172 mg/dL (70-99) H 03/25/18 07:50 Calculated Osmolality 301 (280-300) H 03/25/18 05:52 Total Bilirubin 1.2 mg/dL (0.3-1.0) H 03/25/18 05:52 Troponin I 0.04 ng/mL (< 0.04) H* 03/24/18 16:03 B-Natriuretic Peptide 3475 pg/mL (Less than 100) H 03/24/18 10:06 Serum Total Protein 6.1 g/dL (6.4-8.9) L 03/25/18 05:52 Albumin 3.2 g/dL (3.5-5.7) L 03/25/18 05:52 - Microbiology Findings Microbiology Findings: Microbiology, Last 48 Hours 03/24/18 14:53 Blood Culture - Preliminary Peripheral Venipuncture Culture is incubating and being continuously monitored for growth. Final report to follow. 03/24/18 14:58 Blood Culture - Preliminary Peripheral Venipuncture Culture is incubating and being continuously monitored for growth. Final report to follow. - Clinical Findings Intake & Output: Intake & Output 03/24/18 03/25/18 03/25/18 23:59 07:59 15:59 Intake Total 600 / 600 Output Total 2600 / 2600 Balance -1999 / -1999 Weight 101.4 kg Consult Discharge Plan - Plan Referrals: NONE,PCP [Primary Care Provider] -
--- NOTE | 2018-03-25 11:37 | Event Note ---
Date of Encounter: 03/25/18 Time of Encounter: 11:35 Nephrology Chart Review He is ESRD on HD MWF. He completed HD on Tuesday (yesterday), and I have no new medically necessary recommendations this weekend. Next HD is planned for Tuesday, if he remains hospitalized. Otherwise he may go to his existing HD unit as an oupt on Tuesday.
[2018-03-26] MEDS: Ipratropium/Albuterol Neb 3 ML IH SCH ×6 (04:32→23:23)
[2018-03-26 05:44] LABS: Hematocrit 24.7 % (37.5-50.1); Hemoglobin 7.3 g/dL (12.9-16.9); Immature Granulocytes % 0.9 % (0-4); Lymphocytes # 0.3 K/mcL (0.6-4.6); Lymphocytes % 2.1 %; Mean Corpuscular HGB Conc 29.6 g/dL (31.6-35.5); Mean Corpuscular Hemoglobin 27.3 pg (28.0-33.3); Mean Corpuscular Volume 92.5 fL (83.0-100.0); Monocytes # 0.5 K/mcL (0.0-1.3); Monocytes % 4.5 %; Neutrophils # 10.9 K/mcL (1.6-8.9); Platelet Count 256 K/mcL (140-400); Red Blood Count 2.67 M/mcL (4.19-5.50); Red Cell Distribution Width 17.2 % (11.5-14.5); Segmented Neutrophils % 92.5 %
[2018-03-26 06:07] LABS: Albumin 3.1 g/dL (3.5-5.7); Albumin/Globulin Ratio 1.2 (1.1-2.2); Bilirubin,Total 0.9 mg/dL (0.3-1.0); Calcium 8.7 mg/dL (8.6-10.3); Globulin 2.6 g/dL (2.4-3.5); Potassium 4.6 mEq/L (3.5-5.1); Total Protein 5.7 g/dL (6.4-8.9)
[2018-03-26] MEDS: Tiotropium 18 MCG inhalation IH SCH (07:40)
--- NOTE | 2018-03-26 08:44 | Internal Med Progress Note ---
Addendum entered and electronically signed by Betty Crawley MD 03/26/18 14:55: I examined this patient and my medical decision-making was reviewed with the Resident Physician. I agree with the documented findings, disposition and treatment plan as described except to the extent set forth below. Patient is a 67 year old male with history of ESRD on dialysis M/W/F, Shiloh's granulomatosis, COPD, HTN presented from Pulmonology office for SOB wit hypoxia. He was sent here for admission. He first to the ED on 03/10/18 for hemoptysis and SOB. At the time, the running diagnosis with pneumonia versus lung mass. During that time, the ED physician recommended patient to be admitted but patient decided instead to be discharged home with follow-up with Pulmonology as outpatient. He was sent home with Marcy. He states he has not really improved since then. He has dyspnea at rest but notably gets worse with exertion. He denies orthopnea but states that he wears a CPAP mask at night. He has a history of COPD and does not readily identify any COPD triggers. He notes that his is a sick contact with some cold-like symptoms. Patient is also having some episodes intermittent chest pain in past several months. He has extremity edema at baseline, does think it is only This pain lasts for seconds at a time that is substernal in location. He denies any fevers/chills, n/v, numbness/tingling, palpitations, abdominal pain. He still has hemoptysis. Upon presentation to the ED, he required supplemental O2, Nephrology was consulted, and Pulmonology was consulted. He was ordered a dose of Vancomycin, Cefepime, and Azithromycin. A chest x-ray showed prior masslike consolidation in KATARINA that appears improved, and a worsened opacity in LLL with likely pleural effusion with infiltrate. WBC count is normal, creatinine 7.87 consistent with ESRD, BNP of 3,475, troponin borderline elevated 0.05 with repeat of 0.04. EKG showed sinus rhythm with no acute ST or T wave changes from prior EKG. Patient feels better today, Labs reviewed A/P: 1 - Acute respiratory and chronic respiratory failure with hypoxia 2 - Acute decompensated heart failure 3 - Chest pain 4 - ESRD 5 - Shiloh's granulomatosis 6 - COPD 7 - Hypertension 8 - AAA 9 - Hemoptysis - possibly related to infection, Shiloh's granulomatosis, malignancy, or other. 10 - DVT prophylaxis. 11 - Abnormal CT abdomen/pelvis: see above. - Feels better after dialysis with fluid removal. Had 2.6 L fluid on dialysis - Pulmonology consulted, recommendations appreciated - hold of bronchoscopy for now. - Fluid restriction diet - Continue steroids and duo nebs. - Elevated troponins have been cycled and showed improved. Possibly demand ischemia versus ESRD. - EPCD for DVT prophylaxis and monitor hemoptysis. Hemoptysis seems improved, will likely switch back to heparin SQ 5,000 units today or tomorrow. - CT abdomen/pelvis: multifocal stranding in fat between common iliac arteries extending to external iliac arteries. Per Radiology reads, possibly ret roperitoneal fibrosis vs other etiology, with recommendations to follow-up with CT angiogram in 2-3 days Plan for follow-up CT angio abdomen/pelvis tomorrow as per Radiology recommendations. Coordinate with dialysis timing. Original Note: <Zack Ribera S - Last Filed: 03/26/18 11:42> Hospitalist Progress Note - Encounter Date of Encounter: 03/26/18 Time of Encounter: 08:39 - Subjective Interval History: Mr. Castillo is a 67 year old male with PMH of Brendon's granulomatosis, HTN, COPD, CHF, ESRD on dialysis. He presented 03/24/18 from the pulmonologists office for oxgen saturation in the 60's and it took 5L to get back to the 90's. The pt was recently here for pneumonia and was seen in the ED and d/c on 10days of uin. He continued to have symptoms and at follow up with pulmonology was sent to the ED. He reported bloody sputum that has been going on for 1 wk. He has chronic SOB at baseline and is chronically on oxygen. - baseline O2 is 3L - pt has a productive cough but no chest pain. He denies abd pain, N/V/D, palpiltations or blurry vision - he has lost about 40 lbs in the last 1mos - he denies any night sweats, fevers or chills He gets dialysis MWF. Dialyzed Tuesday. Pt has no complaints this morning. He denies chest pain. SOB improving, small amount of sputum production. No N/V/D. No abd pain - Exam Vitals: Temp Pulse Resp BP Pulse Ox 98.5 F 99 20 114/53 90 03/26/18 06:52 03/26/18 06:52 03/26/18 06:52 03/26/18 06:52 03/26/18 06:52 Exam: General - AOx3, NAD, laying in bed HEENT - NCAT, missing part of his left ear, moist mucus membranes Cardio - s1s2 cta no mrg rrr lungs -decreased breath sounds bilaterally, airflow better this morning, wheezing on expiration abd - NTND, no rebound or guarding, obese abd Neuro - no FND extremities - 1+ pitting edema Skin - no rash, no open wound - Assessment and Plan (1) COPD exacerbation Current Visit: Yes Status: Acute Assessment and Plan: Pt presents with increased sputum productive , bloody in color - chronically uses 3L at baseline, currently 90% on 11L CT scan on 03/10 - showed multiple nodules - masslike consolidation within the lingula - pneumonia vs neoplasm Repeat CT scan on 03/24 - increasing multifocal airspace disease B/L with bilat increasing pleural effusions - pneumonia favored over edema - ?neoplastic process CXR - Superimposed worsened streaky/reticular opacities , may be atelectasis, infiltrates and/or interstitial edema. - No overt pulmonary edema Pt does meet sepsis/SIRS criteria at this time - WBC count 11.8, may be secondary to steroids - HR 99 - RR 20 - BP has been stable and normotensive Plan: - methylprednisone 60mg IVP q12hr will be d/c today, transition to PO steroids - duonebs scheduled and prn for SOB - Azithromycin daily, vancomycin and cefepime day 3 Give cefepime after dialysis, will speak to pharmacist about this Blood cultures pending S pnumo, mycoplasma, legionella antigens pending Sputum cx pending - respiratory following, appreciate recommendations if no improvement and pleural effusion worsens, they plan to do thoracentesis US guided recommend extra dialysis (2) Acute and chronic respiratory failure Current Visit: Yes Status: Acute Assessment and Plan: See plan above for COPD exacerbation. (3) Sepsis Current Visit: Yes Status: Acute Assessment and Plan: See plan as above for COPD exacerbation - currently meets SIRS criteria for WBC count of 11.8 and HR 99 (4) HCAP (healthcare-associated pneumonia) Current Visit: Yes Status: Acute Assessment and Plan: See plan as above for COPD exacerbation (5) Essential hypertension Current Visit: No Status: Chronic Assessment and Plan: BP 114/53 - continue lopressor - add hydraolazine 10mg IVP q6hr prn SBP >180 (6) Obesity (BMI 30-39.9) Current Visit: No Status: Chronic Assessment and Plan: BMI 35 - lifestyle modifications (7) DVT prophylaxis Current Visit: No Status: Acute Assessment and Plan: scd (8) Shiloh's granulomatosis (granulomatosis with polyangiitis) Current Visit: No Status: Chronic Assessment and Plan: May be contributing to hemoptysis and to renal failure - (+) serine protease 3 ab on 08/2017 (9) Fluid overload Current Visit: Yes Status: Acute Assessment and Plan: BNP on admission is 3475 LVEF 55-60% - mild concentric LVH - LV diastolic dysfxn Plan: - strict I&O's - fluid restriction diet 1.5L (10) History of chronic CHF Current Visit: No Status: Chronic Assessment and Plan: Not in acute exacerbation LVEF 55-60% - mild concentric LVH - LV diastolic dysfxn Plan: - cardiac diet - fluid resitrction diet to 1.5 L per day (11) ESRD (end stage renal disease) on dialysis Current Visit: Yes Status: Chronic Assessment and Plan: On dialysis MWF On admission - BUN 60 - Creatinine 7.87 Today: - BUN 65 - Creatinine 7.17 Dialysis completed Saturday 03/24 - respiratory recommends extra dialysis Plan: - monitor I&O's - nephrology following, appreciate recommendations - avoid nephrotoxins (12) Troponin level elevated Current Visit: Yes Status: Acute Assessment and Plan: Troponin at 0.05, 0.04 - most likely a type II VA due to fluid overload (13) Lung nodule Current Visit: Yes Status: Acute Assessment and Plan: Lung nodules on CT scan last ER visit - plan for outpatient follow up (14) Heart failure Current Visit: Yes Status: Acute Assessment and Plan: BNP on admission is 3475 - secondary to ESRD and fluid overload - acute decompensated HF LVEF 55-60% - mild concentric LVH - LV diastolic dysfxn Dialysis MWF, had over 2.5 L taken off at last session Plan: - strict I&O's - fluid restriction diet 1.5L - cardiac diet - Time Spent with Patient Total time spent is greater than 50% in coordination of care (as documented) at patient's floor/unit and/or counseling patient: Internal Medicine: Result - Labs CBC & Chem 7: 03/26/18 05:24 03/26/18 05:24 Labs: Short CBC 03/26/18 Range/Units 05:24 WBC 11.8 H D (4.3-11.1) K/mcL Hgb 7.3 L (12.9-16.9) g/dL Hct 24.7 L (37.5-50.1) % Plt Count 256 (140-400) K/mcL Neutrophils # 10.9 H (1.6-8.9) K/mcL BMP 03/26/18 05:24 Sodium 136 Potassium 4.6 Chloride 97 L Carbon Dioxide 25 BUN 65 H Creatinine 7.17 H Glucose 179 H Calcium 8.7 Liver Function 03/26/18 Range/Units 05:24 Total Bilirubin 0.9 (0.3-1.0) mg/dL AST 18 (13-39) Units/L ALT 22 (7-52) Units/L Alkaline Phosphatase 58 (34-104) Units/L Albumin 3.1 L (3.5-5.7) g/dL - ABG Interpretation ABG results: ABG ABG pH 7.45 pH Units (7.32-7.45) 03/25/18 04:20 ABG pCO2 43 mmHg (35-45) 03/25/18 04:20 ABG pO2 62 mmHg (85-104) L 03/25/18 04:20 ABG O2 Saturation 92 % (95-98) L 03/25/18 04:20 PT/INR, D-dimer PT 14.3 Seconds (9.4-12.1) H 03/24/18 13:39 - Impressions Impressions Echocardiogram 03/24/18 14:24 Impressions: Technically adequate exam. LVEF 55-60%. Mild concentric left ventricular hypertrophy. Mild left ventricular diastolic dysfunction. Normal right ventricular structure and function. Moderately dilated right atrium. Mild tricuspid regurgitation. Moderate pulmonary hypertension. There is a small pericardial effusion present. Consult Discharge Plan - Plan Referrals: NONE,PCP [Primary Care Provider] - <Betty Crawley - Last Filed: 03/26/18 14:50> Hospitalist Progress Note - Exam Vitals: Temp Pulse Resp BP Pulse Ox 98.7 F 88 18 100/45 96 03/26/18 11:07 03/26/18 11:07 03/26/18 11:16 03/26/18 11:07 03/26/18 11:16 - Assessment and Plan (1) Essential hypertension Current Visit: No Status: Chronic (2) Obesity (BMI 30-39.9) Current Visit: No Status: Chronic (3) DVT prophylaxis Current Visit: No Status: Acute (4) Shiloh's granulomatosis (granulomatosis with polyangiitis) Current Visit: No Status: Chronic (5) HCAP (healthcare-associated pneumonia) Current Visit: Yes Status: Acute (6) Fluid overload Current Visit: Yes Status: Acute (7) COPD exacerbation Current Visit: Yes Status: Acute (8) History of chronic CHF Current Visit: No Status: Chronic (9) ESRD (end stage renal disease) on dialysis Current Visit: Yes Status: Chronic (10) Troponin level elevated Current Visit: Yes Status: Acute (11) Lung nodule Current Visit: Yes Status: Acute (12) Acute and chronic respiratory failure Current Visit: Yes Status: Acute (13) Sepsis Current Visit: Yes Status: Acute (14) Heart failure Current Visit: Yes Status: Acute - Time Spent with Patient Total time spent is greater than 50% in coordination of care (as documented) at patient's floor/unit and/or counseling patient: Internal Medicine: Result - Labs CBC & Chem 7: 03/26/18 05:24 03/26/18 05:24 Labs: Short CBC 03/26/18 Range/Units 05:24 WBC 11.8 H D (4.3-11.1) K/mcL Hgb 7.3 L (12.9-16.9) g/dL Hct 24.7 L (37.5-50.1) % Plt Count 256 (140-400) K/mcL Neutrophils # 10.9 H (1.6-8.9) K/mcL BMP 03/26/18 05:24 Sodium 136 Potassium 4.6 Chloride 97 L Carbon Dioxide 25 BUN 65 H Creatinine 7.17 H Glucose 179 H Calcium 8.7 Liver Function 03/26/18 Range/Units 05:24 Total Bilirubin 0.9 (0.3-1.0) mg/dL AST 18 (13-39) Units/L ALT 22 (7-52) Units/L Alkaline Phosphatase 58 (34-104) Units/L Albumin 3.1 L (3.5-5.7) g/dL - ABG Interpretation ABG results: ABG ABG pH 7.45 pH Units (7.32-7.45) 03/25/18 04:20 ABG pCO2 43 mmHg (35-45) 03/25/18 04:20 ABG pO2 62 mmHg (85-104) L 03/25/18 04:20 ABG O2 Saturation 92 % (95-98) L 03/25/18 04:20 PT/INR, D-dimer PT 14.3 Seconds (9.4-12.1) H 03/24/18 13:39 - Impressions Impressions Echocardiogram 03/24/18 14:24 Impressions: Technically adequate exam. LVEF 55-60%. Mild concentric left ventricular hypertrophy. Mild left ventricular diastolic dysfunction. Normal right ventricular structure and function. Moderately dilated right atrium. Mild tricuspid regurgitation. Moderate pulmonary hypertension. There is a small pericardial effusion present. - Attending Attestation I examined this patient and my medical decision-making was reviewed with the Resident Physician. I agree with the documented findings, disposition and treatment plan as described except to the extent set forth below. <Zack Ribera S - Last Filed: 03/26/18 11:42> (2) Acute and chronic respiratory failure Qualifiers: Respiratory failure complication: hypoxia Qualified Code(s): J96.21 - Acute and chronic respiratory failure with hypoxia (3) Sepsis Qualifiers: Sepsis type: sepsis due to unspecified organism Qualified Code(s): A41.9 - Sepsis, unspecified organism (9) Fluid overload Qualifiers: Hypervolemia type: unspecified Qualified Code(s): E87.70 - Fluid overload, unspecified (14) Heart failure Qualifiers: Heart failure type: diastolic Heart failure chronicity: acute on chronic Qualified Code(s): I50.33 - Acute on chronic diastolic (congestive) heart failure <Betty Crawley - Last Filed: 03/26/18 14:50> (6) Fluid overload Qualifiers: Hypervolemia type: unspecified Qualified Code(s): E87.70 - Fluid overload, unspecified (12) Acute and chronic respiratory failure Qualifiers: Respiratory failure complication: hypoxia Qualified Code(s): J96.21 - Acute and chronic respiratory failure with hypoxia (13) Sepsis Qualifiers: Sepsis type: sepsis due to unspecified organism Qualified Code(s): A41.9 - Sepsis, unspecified organism (14) Heart failure Qualifiers: Heart failure type: diastolic Heart failure chronicity: acute on chronic Qualified Code(s): I50.33 - Acute on chronic diastolic (congestive) heart failure
[2018-03-26] MEDS: Multivit/Ca/Min/Fe/FA 1 TAB TABLET PO SCH (09:06)
[2018-03-26] MEDS: Azithromycin 250 MG TABLET PO SCH (09:06)
[2018-03-26] MEDS: Cholecalciferol (D-3) 1,000 UNIT TABLET PO SCH (09:06)
[2018-03-26] MEDS: Aspirin Enteric Coated 81 MG Tablet PO SCH (09:06)
[2018-03-26] MEDS: Cefepime HCl 1,000 MG in Water for inj. (sterile) 20 ML 10 ML IVP SCH (09:06)
[2018-03-26] MEDS: predniSONE 20 MG TABLET PO SCH (09:13)
--- NOTE | 2018-03-26 09:50 | Vascular/Endovasc Consult Note ---
Date of Encounter: 03/25/18 Time of Encounter: 20:30 Assessment and Plan (1) AAA (abdominal aortic aneurysm) Current Visit: Yes Status: Chronic The pathophysiology and natural history of abdominal aortic aneurysms was discussed with the patient and all questions were answered. The patient is a 4.6 x 4.5 cm infrarenal abdominal aortic aneurysm. There is no evidence of rupture or hematoma formation. Nonspecific retroperitoneal and plan for changes are noted on the CT scan. There does not seem to directly involve the aorta or iliac vessels. Repeat CT scan was recommended by radiology in 2-3 days. The patient will follow up in vascular clinic in approximately 6 months with an aortic duplex to follow his aortic aneurysm. There is no indication for intervention at this time. He was instructed to seek immediate medical attention for any signs or symptoms of acute onset abdominal, flank or back pain. Qualifiers: Presence of rupture: without rupture Qualified Code(s): I71.4 - Abdominal aortic aneurysm, without rupture (2) ESRD (end stage renal disease) on dialysis Current Visit: Yes Status: Chronic Receives hemodialysis Tuesday, Tuesday and Tuesday. (3) Acute and chronic respiratory failure Current Visit: Yes Status: Acute The patient reports that he is feeling better since admission. He does have some shortness of breath. He continues to require supplemental oxygen. Qualifiers: Respiratory failure complication: hypoxia Qualified Code(s): J96.21 - Acute and chronic respiratory failure with hypoxia (4) Obesity (BMI 30-39.9) Current Visit: No Status: Chronic - History of Present Illness Consult date: 03/25/18 Requesting physician: Zack Ribera Consult reason: Abdominal aortic aneurysm Chief complaint: COPD exacerbation History of present illness: Mr. Castillo is a 67 year old male with history of hypertension, COPD, end-stage renal disease on hemodialysis and hypertension. 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 He was admitted to [facility] for further evaluation. The patient was expressing abdominal pain as part of his evaluation he underwent a CT scan. This revealed an abdominal aortic aneurysm. He also had some inflammation in the retroperitoneum adjacent to the iliac vessels. Counseled for further evaluation. The evaluation patient is comfortable. He denies any chest pain or shortness of breath. He denies significant abdominal, flank or back pain. He does report some tenderness with deep palpation of his own abdomen. Past Med Surg Social Fam HX - Past Medical History Medical history: cancer, CHF, COPD, dialysis, hypertension, renal disease Additional medical history: skin cancer, hiatal hernia Psychiatric history: no psych history - Social History Smoking Status: Former smoker Smokeless Tobacco Status: Yes Alcohol use: none Drug use: none - Family History Mother Hx Family Endocrine Disorder: Yes (DM) Father Living Status: Hx Family Respiratory Disorders: Yes Medications and Allergies Albuterol Sulfate [Ventolin Hfa] 2 puff IH Q4H 08/31/17 [History] Metoprolol [Lopressor] 25 mg PO DAILY 08/31/17 [History] Aspirin [Adult Aspirin] 81 mg PO DAILY 03/24/18 [History] Budesonide [Pulmicort Flexhaler 180mcg] 2 puff IH BID 03/24/18 [History] Calcium Carbonate 1,300 mg PO DAILY 03/24/18 [History] Cholecalciferol (D-3) [Vitamin D] 1,000 unit PO DAILY 03/24/18 [History] Folic Acid/Vit B Complex and C [Dialyvite Tablet] 1 tab PO DAILY 03/24/18 [History] Sevelamer [Renvela] 1,600 mg PO TID 03/24/18 [History] Tiotropium [Spiriva] 1 puff IH DAILY 03/24/18 [History] Allergy/AdvReac Type Severity Reaction Status Date / Time Amoxicillin Allergy Rash Verified 03/10/18 13:35 Penicillins AdvReac Hives Verified 08/31/17 01:38 All Systems Review: The remainder of the systems were reviewed and are negative - Constitutional Constitutional: no chills, no fever(s) - Cardiovascular Cardiovascular: dyspnea on exertion, no chest pain at rest, no chest pain with exertion - Respiratory Respiratory: no cough - Gastrointestinal Gastrointestinal: abdominal pain, no constipation, no diarrhea Exam Vital Signs, Last 4 Hours Temp Pulse Resp BP Pulse Ox 03/26/18 09:24 93 03/26/18 07:38 18 96 03/26/18 06:52 98.5 F 99 20 114/53 90 General: Present: Conversant, No Apparent Distress HEENT: Present: Trachea midline, Pupils equal Neck: Absent: JVD, Lymphadenopathy, Left Carotid bruit, Right Carotid bruit Cardiac: Present: Reg Rate and Rhythm, Normal S1 and S2 Lungs: Present: Normal Breath Sounds, No Wheeze, Rales, Rhonchi Neuro: Present: Alert and responsive, Motor nerves grossly intact, Sensory nerves grossly intact Abdomen: Present: Soft, Non-tender. Absent: Masses Vascular: Present: Normal capillary refill. Absent: Cyanosis, Edema Skin: Present: No rashes noted on visualized skin. Absent: Wound/ulcer(s) Consult Discharge Plan - Plan Referrals: NONE,PCP [Primary Care Provider] -
[2018-03-26] MEDS ORDERED: Beclomethasone 80mcg MDI IH SCH (10:00)
--- NOTE | 2018-03-26 10:39 | Pulmonology Progress Note ---
Date of Encounter: 03/26/18 Time of Encounter: 10:00 Assessment and Plan (1) Acute and chronic respiratory failure Current Visit: Yes Status: Acute Multifactorial secondary to COPD exacerbation with pneumonia, fluid overload due to diastolic dysfunction and end-stage renal disease patient requiring high flow oxygen is minimal bilateral pleural effusion not much to drain If the pleural effusion worsens will consider ultrasound-guided thoracentesis. The meantime he needs a few extra session of dialysis to help us oxygen requirement to come down and also treating the COPD exacerbation will help in the VQ mismatch. 03/26 patient V/Q mismatch is lot better most likely due to improving COPD exacerbation patient is due for dialysis tomorrow. Patient's symptoms are getting better. Qualifiers: Respiratory failure complication: hypoxia Qualified Code(s): J96.21 - Acute and chronic respiratory failure with hypoxia (2) CHF (congestive heart failure) Current Visit: Yes Status: Acute fluid management with dialysis tomorrow he has a session of dialysis. Qualifiers: Heart failure type: diastolic Heart failure chronicity: acute on chronic Qualified Code(s): I50.33 - Acute on chronic diastolic (congestive) heart failure (3) COPD exacerbation Current Visit: Yes Status: Acute To continue current regimen of bronchodilators and steroids . (4) Pneumonia Current Visit: No Status: Acute patient is getting better to continue the current regimen of antibiotics. And told him he needs a bronchoscopy at some point for airway exam can be done as an outpatient when his COPD at his baseline. Qualifiers: Pneumonia type: due to unspecified organism Laterality: bilateral Lung location: lower lobe of lung Qualified Code(s): J18.1 - Lobar pneumonia, unspecified organism (5) Obesity (BMI 30-39.9) Current Visit: No Status: Chronic Counseled on importance of weight loss in long-term management of his comorbid medical disorders. Subjective Principal diagnosis: acute on chronic hypoxic respiratory failure Interval history: Patient presented with acute on chronic hypoxic respiratory failure secondary to pneumonia and COPD exacerbation complicated by fluid overload , diastolic dysfunction , ESRD patient is sleeping when I was examining him and he did not have any new complaints says his shortness of breath is lot better still he is on high flow oxygen 11 L. 03/26 patient says his symptoms are lot better his oxygen requirements coming down not much cough or sputum production patient is due for dialysis tomorrow denies any chest pain or chest tightness denies any fever or chills or any other constitutional symptoms. Objective PUL Vital signs: Last Vital Signs Temp 98.5 F 03/26/18 06:52 Pulse 99 03/26/18 06:52 Resp 18 03/26/18 07:38 BP 114/53 03/26/18 06:52 Pulse Ox 93 03/26/18 09:24 Auscultation: bilateral: diminished breath sounds (bilateral bibasilar diminished breadth sounds), wheezes (minimal scattered wheezes ) Gastrointestinal: other (obese abdomen ) Extremities: edema Results - Laboratory Findings CBC and BMP: 03/26/18 05:24 03/26/18 05:24 ABG ABG pH 7.45 pH Units (7.32-7.45) 03/25/18 04:20 ABG pCO2 43 mmHg (35-45) 03/25/18 04:20 ABG pO2 62 mmHg (85-104) L 03/25/18 04:20 ABG O2 Saturation 92 % (95-98) L 03/25/18 04:20 PT/INR, D-dimer PT 14.3 Seconds (9.4-12.1) H 03/24/18 13:39 Abnormal lab findings: Abnormal lab results WBC 11.8 K/mcL (4.3-11.1) H D 03/26/18 05:24 RBC 2.67 M/mcL (4.19-5.50) L 03/26/18 05:24 Hgb 7.3 g/dL (12.9-16.9) L 03/26/18 05:24 Hct 24.7 % (37.5-50.1) L 03/26/18 05:24 MCH 27.3 pg (28.0-33.3) L 03/26/18 05:24 MCHC 29.6 g/dL (31.6-35.5) L 03/26/18 05:24 RDW 17.2 % (11.5-14.5) H 03/26/18 05:24 MPV 9.0 fL (9.4-12.4) L 03/26/18 05:24 Neutrophils # 10.9 K/mcL (1.6-8.9) H 03/26/18 05:24 Lymphocytes # 0.3 K/mcL (0.6-4.6) L 03/26/18 05:24 PT 14.3 Seconds (9.4-12.1) H 03/24/18 13:39 ABG pO2 62 mmHg (85-104) L 03/25/18 04:20 ABG HCO3 30 mEq/L (21-27) H 03/25/18 04:20 ABG Total CO2 31 mEq/L (20-26) H 03/25/18 04:20 ABG O2 Saturation 92 % (95-98) L 03/25/18 04:20 ABG Base Excess 5 mEq/L (-2 to 3) H 03/25/18 04:20 Chloride 97 mEq/L (98-107) L 03/26/18 05:24 BUN 65 mg/dL (8-23) H 03/26/18 05:24 Creatinine 7.17 mg/dL (0.70-1.30) H 03/26/18 05:24 Est GFR ( Amer) 9 (> 60) L 03/26/18 05:24 Est GFR (Non-Af Amer) 8 (> 60) L 03/26/18 05:24 Glucose 179 mg/dL (70-105) H 03/26/18 05:24 POC Glucose 159 mg/dL (70-99) H 03/25/18 16:39 Calculated Osmolality 305 (280-300) H 03/26/18 05:24 Troponin I 0.04 ng/mL (< 0.04) H* 03/24/18 16:03 B-Natriuretic Peptide 3475 pg/mL (Less than 100) H 03/24/18 10:06 Serum Total Protein 5.7 g/dL (6.4-8.9) L 03/26/18 05:24 Albumin 3.1 g/dL (3.5-5.7) L 03/26/18 05:24 - Microbiology Findings Microbiology Findings: Microbiology, Last 48 Hours 03/24/18 14:53 Blood Culture - Preliminary Peripheral Venipuncture Culture is incubating and being continuously monitored for growth. Final report to follow. 03/24/18 14:58 Blood Culture - Preliminary Peripheral Venipuncture Culture is incubating and being continuously monitored for growth. Final report to follow. - Clinical Findings Intake & Output: Intake & Output 03/25/18 03/26/18 03/26/18 23:59 07:59 15:59 Weight 102.8 kg Consult Discharge Plan - Plan Referrals: NONE,PCP [Primary Care Provider] -
--- NOTE | 2018-03-26 12:25 | Event Note ---
Date of Encounter: 03/26/18 Time of Encounter: 12:24 Nephrology Chart Review/Update Last completed HD on Tuesday, and will plan for HD tomorrow (Tuesday) with a goal to challenge his dry weight. Agree with Pulmonology. Thank you.
[2018-03-26] MEDS: methylPREDNISolone 125 MG/2 ML VIAL IVP SCH (12:30)
--- NOTE | 2018-03-26 12:53 | Vascular/[facility] Progress Note ---
Date of Encounter: 03/26/18 Time of Encounter: 11:40 - Assessment and plan (1) AAA (abdominal aortic aneurysm) Current Visit: Yes Status: Chronic The patient has a 4.6 x 4.5 cm infrarenal abdominal aortic aneurysm. He denies any abdominal, flank or back pain. He is tolerating a diet well. He will follow-up in vascular clinic in 6 months. He was reminded to seek immediate medical attention for any signs or symptoms of acute onset abdominal, flank or back pain. We will sign off on this patient. Please reconsult if needed. Qualifiers: Presence of rupture: without rupture Qualified Code(s): I71.4 - Abdominal aortic aneurysm, without rupture (2) ESRD (end stage renal disease) on dialysis Current Visit: Yes Status: Chronic (3) Acute and chronic respiratory failure Current Visit: Yes Status: Acute The patient reports that he is feeling better since admission. He does have some shortness of breath. He continues to require supplemental oxygen. Qualifiers: Respiratory failure complication: hypoxia Qualified Code(s): J96.21 - Acute and chronic respiratory failure with hypoxia (4) Obesity (BMI 30-39.9) Current Visit: No Status: Chronic - Subjective Interval history: The patient denies any abdominal, flank or back pain. He is tolerating a diet well. He denies any shortness of breath this time. He remains on 6 L of oxygen. Vital Signs, Last 4 Hours Temp Pulse Resp BP Pulse Ox 03/26/18 11:16 18 96 03/26/18 11:07 98.7 F 88 20 100/45 96 03/26/18 09:24 93 - Physical Examination General: Present: Conversant, No Apparent Distress Cardiac: Present: Reg Rate and Rhythm Lungs: Present: Normal Breath Sounds Neuro: Present: Alert and responsive, No focal deficits noted Vascular: Present: Normal capillary refill. Absent: Cyanosis Abdomen: Present: Soft, Non-tender Results 03/26/18 05:24 03/26/18 05:24 Lab Results, Last 24 hours 03/26/18 03/26/18 05:24 05:24 WBC 11.8 H D Hgb 7.3 L Hct 24.7 L Plt Count 256 Sodium 136 Potassium 4.6 Chloride 97 L Carbon Dioxide 25 BUN 65 H Creatinine 7.17 H Glucose 179 H Calcium 8.7 Total Bilirubin 0.9 AST 18 ALT 22 Alkaline Phosphatase 58 - Imaging / Other Tests CT/CTA: report reviewed, image reviewed Consult Discharge Plan - Plan Referrals: NONE,PCP [Primary Care Provider] -
[2018-03-26] MEDS ORDERED: Isovue-370 500 ML INFUS..BTL IV ONE (14:53)
[2018-03-26] MEDS: Beclomethasone 80mcg MDI IH SCH (20:17)
[2018-03-27] MEDS: Ipratropium/Albuterol Neb 3 ML IH SCH ×5 (04:10→20:15)
[2018-03-27 04:57] LABS: Hematocrit 23.3 % (37.5-50.1); Immature Granulocytes % 0.6 % (0-4); Lymphocytes # 0.3 K/mcL (0.6-4.6); Lymphocytes % 3.1 %; Mean Corpuscular Hemoglobin 27.7 pg (28.0-33.3); Mean Corpuscular Volume 92.1 fL (83.0-100.0); Mean Platelet Volume 9.4 fL (9.4-12.4); Monocytes # 0.8 K/mcL (0.0-1.3); Monocytes % 8.1 %; Neutrophils # 8.9 K/mcL (1.6-8.9); Platelet Count 215 K/mcL (140-400); Red Blood Count 2.53 M/mcL (4.19-5.50); Segmented Neutrophils % 88.2 %
[2018-03-27 05:15] LABS: Calcium 8.6 mg/dL (8.6-10.3); Potassium 4.9 mEq/L (3.5-5.1)
[2018-03-27] MEDS ORDERED: 0.9 % Sodium Chloride 250 ML IVC PRN (06:42)
[2018-03-27] MEDS: Beclomethasone 80mcg MDI IH SCH ×3 (06:52→07:57)
[2018-03-27 08:31] LABS: Adenovirus Not Detected (Not Detect); Bordetella Pertussis Not Detected (Not Detect); Chlamydophila pneumoniae Not Detected (Not Detect); Coronavirus 229E Not Detected (Not Detect); Coronavirus HKU1 Not Detected (Not Detect); Coronavirus NL63 Not Detected (Not Detect); Coronavirus OC43 Not Detected (Not Detect); Human Metapneumovirus Not Detected (Not Detect); Human Rhinovirus/Enterovirus Not Detected (Not Detect); Influenza A Subtype 2009 H1 Not Detected (Not Detect); Influenza A Untypeable Not Detected (Not Detect); Influenza B Not Detected (Not Detect); Mycoplasma pneumoniae Not Detected (Not Detect); Parainfluenza Virus 1 Not Detected (Not Detect); Parainfluenza Virus 2 Not Detected (Not Detect); Parainfluenza Virus 3 Not Detected (Not Detect); Parainfluenza Virus 4 Not Detected (Not Detect); Respiratory Syncytial Virus Not Detected (Not Detect)
[2018-03-27] MEDS: Tiotropium 18 MCG inhalation IH SCH (08:31)
[2018-03-27 08:39] LABS: Hematocrit 26.3 % (37.5-50.1); Hemoglobin 7.8 g/dL (12.9-16.9)
[2018-03-27] MEDS ORDERED: Albuterol 2.5 MG/3 ML NEBULIZER IH PRN (08:42)
--- NOTE | 2018-03-27 09:15 | Internal Med Progress Note ---
<BacilioZack S - Last Filed: 03/27/18 11:08> Hospitalist Progress Note - Encounter Date of Encounter: 03/27/18 Time of Encounter: 09:15 - Subjective Interval History: Mr. Castillo is a 67 year old male with PMH of Brendon's granulomatosis, HTN, COPD, CHF, ESRD on dialysis. He presented 03/24/18 from the pulmonologists office for oxgen saturation in the 60's and it took 5L to get back to the 90's. The pt was recently here for pneumonia and was seen in the ED and [facility] He continued to have symptoms and at follow up with pulmonology was sent to the ED. He reported bloody sputum that has been going on for 1 wk. He has chronic SOB at baseline and is chronically on oxygen. - baseline O2 is 3L - pt has a productive cough but no chest pain. He denies abd pain, N/V/D, palpiltations or blurry vision - he has lost about 40 lbs in the last 1mos - he denies any night sweats, fevers or chills He gets dialysis MWF. Dialyzed Tuesday. Pt has no complaints this morning. He denies chest pain. SOB improving, small amount of sputum production. No N/V/D. No abd pain. He is seen in the dialysis unit. - Exam Vitals: Temp Pulse Resp BP Pulse Ox 97.5 F L 88 14 111/62 96 03/27/18 07:18 03/27/18 07:18 03/27/18 07:59 03/27/18 07:18 03/27/18 07:59 Exam: General - AOx3, NAD, laying in bed HEENT - NCAT, missing part of his left ear, moist mucus membranes Cardio - s1s2 cta no mrg rrr lungs -decreased breath sounds bilaterally, airflow better this morning, wheezing on expiration abd - NTND, no rebound or guarding, obese abd Neuro - no FND extremities - 1+ pitting edema Skin - no rash, no open wound - Assessment and Plan (1) COPD exacerbation Current Visit: Yes Status: Acute Assessment and Plan: Pt presents with increased sputum productive , bloody in color - chronically uses 3L at baseline, currently 96% on 5L CT scan on 10/12 - showed multiple nodules - masslike consolidation within the lingula - pneumonia vs neoplasm Repeat CT scan on 03/24 - increasing multifocal airspace disease B/L with bilat increasing pleural effusions - pneumonia favored over edema - ?neoplastic process CXR - Superimposed worsened streaky/reticular opacities , may be atelectasis, infiltrates and/or interstitial edema. - No overt pulmonary edema Pt does NOT meet sepsis/SIRS criteria at this time - WBC count 10.1 - HR 88 - RR 22 - BP has been stable Legionella, s pneumo anitgens negative Sputum cx negative Plan: - 60mg PO prednisone daily - duonebs scheduled and prn for SOB - Azithromycin daily, cefepime day 4 D/c vancomycin today, pt is clinically improving Give cefepime after dialysis, will speak to pharmacist about this Blood cultures pending mycoplasma antigen pending - respiratory following, appreciate recommendations if no improvement and pleural effusion worsens, they plan to do thoracentesis US guided recommend extra dialysis (2) Acute and chronic respiratory failure Current Visit: Yes Status: Acute Assessment and Plan: See plan above for COPD exacerbation. (3) Anemia Current Visit: Yes Status: Acute Assessment and Plan: Pt hemoglobin on admission 8.8 - this morning hemoglobin is 7.0 - will transfuse 2U pRBC this morning during dialysis - pt has epoetin ordered as per nephrology MCV 27.7 , most likely an anemia of chronic dz secondary to ESRD and low EPO level (4) Sepsis Current Visit: Yes Status: Resolved Assessment and Plan: See plan as above for COPD exacerbation - currently doesnt meet sepsis criteria - resolved for now (5) Heart failure Current Visit: Yes Status: Acute Assessment and Plan: BNP on admission is 3475 - secondary to ESRD and fluid overload - acute decompensated HF LVEF 55-60% - mild concentric LVH - LV diastolic dysfxn Dialysis MWF, had over 2.5 L taken off at last session - dialysis today Plan: - strict I&O's - fluid restriction diet 1.5L - cardiac diet (6) HCAP (healthcare-associated pneumonia) Current Visit: Yes Status: Acute Assessment and Plan: See plan as above for COPD exacerbation (7) Essential hypertension Current Visit: No Status: Chronic Assessment and Plan: BP 111/62 - continue lopressor - add hydraolazine 10mg IVP q6hr prn SBP >180 (8) Obesity (BMI 30-39.9) Current Visit: No Status: Chronic Assessment and Plan: BMI 36 - lifestyle modifications (9) DVT prophylaxis Current Visit: No Status: Acute Assessment and Plan: scd (10) Shiloh's granulomatosis (granulomatosis with polyangiitis) Current Visit: No Status: Chronic Assessment and Plan: May be contributing to hemoptysis and to renal failure - (+) serine protease 3 ab on 08/2017 (11) Fluid overload Current Visit: Yes Status: Acute Assessment and Plan: BNP on admission is 3475 LVEF 55-60% - mild concentric LVH - LV diastolic dysfxn Dialysis today Plan: - strict I&O's - fluid restriction diet 1.5L (12) History of chronic CHF Current Visit: No Status: Chronic Assessment and Plan: Not in acute exacerbation LVEF 55-60% - mild concentric LVH - LV diastolic dysfxn Plan: - cardiac diet - fluid resitrction diet to 1.5 L per day (13) ESRD (end stage renal disease) on dialysis Current Visit: Yes Status: Chronic Assessment and Plan: On dialysis MWF On admission - BUN 60 - Creatinine 7.87 Today: - BUN 65 - Creatinine 7.17 Dialysis completed Saturday 03/24 - respiratory recommends extra dialysis Dialysis planned for today - trasnfuse 2U of pRBC during dialysis Plan: - monitor I&O's - nephrology following, appreciate recommendations - avoid nephrotoxins (14) Troponin level elevated Current Visit: Yes Status: Acute Assessment and Plan: Troponin at 0.05, 0.04 - most likely a type II RI due to fluid overload (15) Lung nodule Current Visit: Yes Status: Acute Assessment and Plan: Lung nodules on CT scan last ER visit - plan for outpatient follow up (16) Abnormal CT of the abdomen Current Visit: Yes Status: Acute Assessment and Plan: CT on 03/24 - multifocal stranding in the fat between the common iliac arteries and extending in the pelvis along the external iliac arteries, - This is indeterminate finding with no clear etiology. - This appears separate from the aortic aneurysm Plan: - vascular consulted - discussed CT findings with me, said they aren't concerned about an emergency - vascular signed off the case - CT angiogram today - spoke with neprhologist on case and they are not concerned if it is coordinated with dialysis - Time Spent with Patient Total time spent is greater than 50% in coordination of care (as documented) at patient's floor/unit and/or counseling patient: Internal Medicine: Result - Labs CBC & Chem 7: 03/27/18 08:27 03/27/18 04:28 Labs: Short CBC 03/27/18 03/27/18 Range/Units 04:28 08:27 WBC 10.1 (4.3-11.1) K/mcL Hgb 7.0 L 7.8 L (12.9-16.9) g/dL Hct 23.3 L 26.3 L (37.5-50.1) % Plt Count 215 (140-400) K/mcL Neutrophils # 8.9 (1.6-8.9) K/mcL BMP 03/27/18 04:28 Sodium 134 L Potassium 4.9 Chloride 98 Carbon Dioxide 25 BUN 89 H Creatinine 8.84 H Glucose 152 H Calcium 8.6 - ABG Interpretation ABG results: ABG ABG pH 7.45 pH Units (7.32-7.45) 03/25/18 04:20 ABG pCO2 43 mmHg (35-45) 03/25/18 04:20 ABG pO2 62 mmHg (85-104) L 03/25/18 04:20 ABG O2 Saturation 92 % (95-98) L 03/25/18 04:20 PT/INR, D-dimer PT 14.3 Seconds (9.4-12.1) H 03/24/18 13:39 Consult Discharge Plan - Plan Referrals: NONE,PCP [Primary Care Provider] - <Betty Crawley - Last Filed: 03/27/18 15:50> Hospitalist Progress Note - Exam Vitals: Temp Pulse Resp BP Pulse Ox 97.8 F 85 18 146/84 96 03/27/18 12:46 03/27/18 11:25 03/27/18 12:46 03/27/18 12:46 03/27/18 09:39 - Assessment and Plan (1) Essential hypertension Current Visit: No Status: Chronic (2) Obesity (BMI 30-39.9) Current Visit: No Status: Chronic (3) DVT prophylaxis Current Visit: No Status: Acute (4) Shiloh's granulomatosis (granulomatosis with polyangiitis) Current Visit: No Status: Chronic (5) HCAP (healthcare-associated pneumonia) Current Visit: Yes Status: Acute (6) Fluid overload Current Visit: Yes Status: Acute (7) COPD exacerbation Current Visit: Yes Status: Acute (8) History of chronic CHF Current Visit: No Status: Chronic (9) ESRD (end stage renal disease) on dialysis Current Visit: Yes Status: Chronic (10) Troponin level elevated Current Visit: Yes Status: Acute (11) Lung nodule Current Visit: Yes Status: Acute (12) Acute and chronic respiratory failure Current Visit: Yes Status: Acute (13) Sepsis Current Visit: Yes Status: Resolved (14) Heart failure Current Visit: Yes Status: Acute (15) Anemia Current Visit: Yes Status: Acute (16) Abnormal CT of the abdomen Current Visit: Yes Status: Acute - Time Spent with Patient Total time spent is greater than 50% in coordination of care (as documented) at patient's floor/unit and/or counseling patient: Internal Medicine: Result - Labs CBC & Chem 7: 03/27/18 14:08 03/27/18 04:28 Labs: Short CBC 03/27/18 03/27/18 03/27/18 Range/Units 04:28 08:27 14:08 WBC 10.1 (4.3-11.1) K/mcL Hgb 7.0 L 7.8 L 9.6 L D (12.9-16.9) g/dL Hct 23.3 L 26.3 L 31.5 L (37.5-50.1) % Plt Count 215 (140-400) K/mcL Neutrophils # 8.9 (1.6-8.9) K/mcL BMP 03/27/18 04:28 Sodium 134 L Potassium 4.9 Chloride 98 Carbon Dioxide 25 BUN 89 H Creatinine 8.84 H Glucose 152 H Calcium 8.6 - ABG Interpretation ABG results: ABG ABG pH 7.45 pH Units (7.32-7.45) 03/25/18 04:20 ABG pCO2 43 mmHg (35-45) 03/25/18 04:20 ABG pO2 62 mmHg (85-104) L 03/25/18 04:20 ABG O2 Saturation 92 % (95-98) L 03/25/18 04:20 PT/INR, D-dimer PT 14.3 Seconds (9.4-12.1) H 03/24/18 13:39 - Attending Attestation I examined this patient and my medical decision-making was reviewed with the Resident Physician. I agree with the documented findings, disposition and treatment plan as described except to the extent set forth below. <Zack Ribera - Last Filed: 03/27/18 11:08> (2) Acute and chronic respiratory failure Qualifiers: Respiratory failure complication: hypoxia Qualified Code(s): J96.21 - Acute and chronic respiratory failure with hypoxia (3) Anemia Qualifiers: Anemia type: unspecified type Qualified Code(s): D64.9 - Anemia, unspecified (4) Sepsis Qualifiers: Sepsis type: sepsis due to unspecified organism Qualified Code(s): A41.9 - Sepsis, unspecified organism (5) Heart failure Qualifiers: Heart failure type: diastolic Heart failure chronicity: acute on chronic Qualified Code(s): I50.33 - Acute on chronic diastolic (congestive) heart failure (11) Fluid overload Qualifiers: Hypervolemia type: unspecified Qualified Code(s): E87.70 - Fluid overload, unspecified <Betty Crawley - Last Filed: 03/27/18 15:50> (6) Fluid overload Qualifiers: Hypervolemia type: unspecified Qualified Code(s): E87.70 - Fluid overload, unspecified (12) Acute and chronic respiratory failure Qualifiers: Respiratory failure complication: hypoxia Qualified Code(s): J96.21 - Acute and chronic respiratory failure with hypoxia (13) Sepsis Qualifiers: Sepsis type: sepsis due to unspecified organism Qualified Code(s): A41.9 - Sepsis, unspecified organism (14) Heart failure Qualifiers: Heart failure type: diastolic Heart failure chronicity: acute on chronic Qualified Code(s): I50.33 - Acute on chronic diastolic (congestive) heart failure (15) Anemia Qualifiers: Anemia type: unspecified type Qualified Code(s): D64.9 - Anemia, unspecified
[2018-03-27] MEDS: Cholecalciferol (D-3) 1,000 UNIT TABLET PO SCH (09:30)
[2018-03-27] MEDS: Renal Vitamin 1 CAP CAPSULE PO SCH (09:30)
[2018-03-27] MEDS: Azithromycin 250 MG TABLET PO SCH (09:30)
[2018-03-27] MEDS: predniSONE 20 MG TABLET PO SCH (09:30)
[2018-03-27] MEDS: Aspirin Enteric Coated 81 MG Tablet PO SCH (09:30)
--- NOTE | 2018-03-27 10:20 | Nephrology Progress Note ---
Addendum entered and electronically signed by Lebron Jones MD 03/27/18 23:08: I examined this patient and discussed the medical decision-making with CAPRI Davis. I agree with the documented findings, disposition and treatment plan as described except to the extent set forth below. She was seen on dialysis Original Note: Date of Encounter: 03/27/18 Time of Encounter: 10:17 - Assessment and Plan (1) ESRD (end stage renal disease) on dialysis Current Visit: Yes Status: Chronic HD today Continue renal diet Continue strict I/Os Avoid nephrotoxins if possible (2) HCAP (healthcare-associated pneumonia) Current Visit: Yes Status: Acute per primary team (3) Anemia Current Visit: Yes Status: Acute Hgb 7.0, repeat 7.8 2 units PRBCs ordered-will give during dialysis Goal hgb 10-11 Transfuse per parameters Receives epo 10,000 units at outpatient dialysis-this has now been ordered for HD treatments here Qualifiers: Anemia type: unspecified type Qualified Code(s): D64.9 - Anemia, unspecified Subjective Principal diagnosis: acute on chronic hypoxic respiratory failure Interval history: Patient seen and examined in HD; states he is feeling better Objective - Vital Signs Vital signs: Vital Signs Temp Pulse Resp BP Pulse Ox 03/27/18 09:39 96 03/27/18 09:00 97.1 F L 18 142/93 03/27/18 07:59 14 96 03/27/18 07:18 97.5 F L 88 22 111/62 92 03/27/18 05:26 98 F 83 17 139/71 95 03/27/18 04:10 18 94 03/27/18 00:53 98 F 91 17 155/80 91 03/26/18 23:23 18 93 03/26/18 20:45 97.8 F 90 17 142/76 94 03/26/18 20:18 23 91 03/26/18 16:17 98 F 85 20 123/72 96 03/26/18 15:59 18 95 03/26/18 11:16 18 96 03/26/18 11:07 98.7 F 88 20 100/45 96 Intake and Output 03/26/18 03/27/18 03/27/18 23:59 07:59 15:59 Intake Total 350 / 350 1190 / 1190 Output Total 100 / 100 Balance 250 / 250 1190 / 1190 Intake: IV Fluids 350 / 350 Oral 240 / 240 Blood Product 350 / 350 Rbcs Leuko Poor As-1 Unit 350 / 350 [id number] Intake, Rinseback and Flushes 600 / 600 Output: Urine 100 / 100 Other: Meal ham sandwich, vanilla pudding and chocolate ice cream Breakfast Percent of Meal Consumed 100% Weight 104.5 kg Blood Glucose* 164 159 Patient Weight 03/27/18 23:59 Weight 104.5 kg - General Appearance General appearance: Present: well-developed, well-nourished, obese EENT: Present: ATNC, mucous membranes moist, hearing intact, vision intact Neck: Present: supple Respiratory: Present: clear (decreased slightly) Cardiology: Present: no edema, normal S1, normal S2 Gastrointestinal: Present: no tenderness, no guarding Integumentary: Present: warm and dry Neurologic: Present: alert and oriented x3 Psychiatric: Present: mood/affect appropriate, cooperative - Lab 03/27/18 08:27 03/27/18 04:28 Most recent lab results ABG pH 7.45 pH Units (7.32-7.45) 03/25/18 04:20 ABG pCO2 43 mmHg (35-45) 03/25/18 04:20 ABG pO2 62 mmHg (85-104) L 03/25/18 04:20 ABG HCO3 30 mEq/L (21-27) H 03/25/18 04:20 ABG O2 Saturation 92 % (95-98) L 03/25/18 04:20 Calcium 8.6 mg/dL (8.6-10.3) 03/27/18 04:28 Consult Discharge Plan - Plan Referrals: NONE,PCP [Primary Care Provider] -
--- NOTE | 2018-03-27 11:22 | Pulmonology Progress Note ---
<Antonio Mancia M - Last Filed: 03/27/18 16:53> Objective PUL Vital signs: Last Vital Signs Temp 97.6 F 03/27/18 16:39 Pulse 82 03/27/18 16:39 Resp 16 03/27/18 16:39 BP 130/67 03/27/18 16:39 Pulse Ox 94 03/27/18 16:39 Results - Laboratory Findings CBC and BMP: 03/27/18 14:08 03/27/18 04:28 ABG ABG pH 7.45 pH Units (7.32-7.45) 03/25/18 04:20 ABG pCO2 43 mmHg (35-45) 03/25/18 04:20 ABG pO2 62 mmHg (85-104) L 03/25/18 04:20 ABG O2 Saturation 92 % (95-98) L 03/25/18 04:20 PT/INR, D-dimer PT 14.3 Seconds (9.4-12.1) H 03/24/18 13:39 Abnormal lab findings: Abnormal lab results RBC 2.53 M/mcL (4.19-5.50) L 03/27/18 04:28 Hgb 9.6 g/dL (12.9-16.9) L D 03/27/18 14:08 Hct 31.5 % (37.5-50.1) L 03/27/18 14:08 MCH 27.7 pg (28.0-33.3) L 03/27/18 04:28 MCHC 30.0 g/dL (31.6-35.5) L 03/27/18 04:28 RDW 17.0 % (11.5-14.5) H 03/27/18 04:28 Lymphocytes # 0.3 K/mcL (0.6-4.6) L 03/27/18 04:28 PT 14.3 Seconds (9.4-12.1) H 03/24/18 13:39 ABG pO2 62 mmHg (85-104) L 03/25/18 04:20 ABG HCO3 30 mEq/L (21-27) H 03/25/18 04:20 ABG Total CO2 31 mEq/L (20-26) H 03/25/18 04:20 ABG O2 Saturation 92 % (95-98) L 03/25/18 04:20 ABG Base Excess 5 mEq/L (-2 to 3) H 03/25/18 04:20 Sodium 134 mEq/L (136-145) L 03/27/18 04:28 BUN 89 mg/dL (8-23) H 03/27/18 04:28 Creatinine 8.84 mg/dL (0.70-1.30) H 03/27/18 04:28 Est GFR ( Amer) 7 (> 60) L 03/27/18 04:28 Est GFR (Non-Af Amer) 6 (> 60) L 03/27/18 04:28 Glucose 152 mg/dL (70-105) H 03/27/18 04:28 POC Glucose 165 mg/dL (70-99) H 03/26/18 16:26 Calculated Osmolality 308 (280-300) H 03/27/18 04:28 Troponin I 0.04 ng/mL (< 0.04) H* 03/24/18 16:03 B-Natriuretic Peptide 3475 pg/mL (Less than 100) H 03/24/18 10:06 Serum Total Protein 5.7 g/dL (6.4-8.9) L 03/26/18 05:24 Albumin 3.1 g/dL (3.5-5.7) L 03/26/18 05:24 - Microbiology Findings Microbiology Findings: Microbiology, Last 48 Hours 03/26/18 18:40 Sputum Culture - Final Sputum 03/26/18 18:40 Legionella Antigen - Final Urine,Catheterized Streptococcus pneumoniae Antigen (M - Final - Clinical Findings Intake & Output: Intake & Output 03/27/18 03/27/18 03/27/18 07:59 15:59 23:59 Intake Total 350 / 350 1540 / 1540 Output Total 100 / 100 4550 / 4550 Balance 250 / 250 -3010 / -3010 Weight 104.5 kg Consult Discharge Plan - Plan Referrals: NONE,PCP [Primary Care Provider] - - Attending Attestation I examined this patient and my medical decision-making was reviewed with the Resident Physician. I agree with the documented findings, disposition and treatment plan as described except to the extent set forth below. Patient seen and examined. Labs, radiology, chart personally reviewed. Agree with resident's history and physical, assessment, plan with following comments: FRENCH COMBER: Patient follows commands, Pulmonary: Acceptable oxygenation and ventilation at this time and there is some improvement with current treatment and actively tend continue. Continue hemodialysis and fluid removal will always be helpful. Check sedimentation rate and ANCA for any evidence of vasculitis and continue systemic steroids with a slow tapering. Patient does not want bronchoscopy and since he is improving at this time that is reasonable. Continue wean off FiO2 to keep SPO2 around 90%. <Frances Cruz - Last Filed: 03/27/18 20:15> Date of Encounter: 03/27/18 Time of Encounter: 11:30 Assessment and Plan (1) Acute and chronic respiratory failure Current Visit: Yes Status: Acute Multifactorial d/t COPD exacerbation with PNA, fluid-overload in HFrEF, and ESRD on hemodialysis Vancomycin has been discontinued, continuing azithromycin and cefepime SpO2 96% on 4.5L nasal cannula, normally wears 3L at home Continue PO prednisone--recommend slow taper until it can be deteremined whether his acute episode of respiratory failure is d/t COPD exacerbation or to his dx of granulomatosis with polyangiitis. ESR and c-ANCA ordered Continue to wean O2 until he's back on his home level, maintain SpO2 > 90% Continue scheduled and PRN duoneadam Qualifiers: Respiratory failure complication: hypoxia Qualified Code(s): J96.21 - Acute and chronic respiratory failure with hypoxia (2) CHF (congestive heart failure) Current Visit: Yes Status: Acute MWF diuresis See above Qualifiers: Heart failure type: diastolic Heart failure chronicity: acute on chronic Qualified Code(s): I50.33 - Acute on chronic diastolic (congestive) heart isael deshaun (3) COPD exacerbation Current Visit: Yes Status: Acute Tuesday hemodialysis session completed Fluid restricted diet of 1.5 L (4) Pneumonia Current Visit: No Status: Acute See above Qualifiers: Pneumonia type: due to unspecified organism Laterality: bilateral Lung location: lower lobe of lung Qualified Code(s): J18.1 - Lobar pneumonia, unspecified organism Subjective Principal diagnosis: acute on chronic hypoxic respiratory failure Interval history: Seen and examined at bedside. Patients is also present in the room. He states he feels ok today and that his cough is the same as yesterday. Coughing does cause him some chest pain. Reports cough was productive of sputum with large blood clots last night and his nurse sent these to the lab. Today, he feels like he cant produce enough force to expel the sputum he feels in his chest. He continues to have shortness of breath with exertion, but denies shortness of breath with rest. He denies fevers, chills, abdominal pain, worsening LE edema. Objective PUL Vital signs: Last Vital Signs Temp 97.6 F 03/27/18 10:55 Pulse 83 03/27/18 10:55 Resp 18 03/27/18 10:55 BP 126/68 03/27/18 10:55 Pulse Ox 96 03/27/18 09:39 General appearance: no acute distress, alert Eyes: nonicteric ENT: oropharynx moist Neck: supple Effort: normal Auscultation: bilateral: diminished breath sounds (L > R), rales (faint) Cardiovascular: regular rate and rhythm Gastrointestinal: normoactive bowel sounds, soft, non-tender, non-distended Integumentary: normal Extremities: no cyanosis, pink and warm, pulses normal, edema (RLE > LLE, non- pitting) Musculoskeletal: no deformities normal mental status, non-focal exam, pupils equal and round, CN II-XII normal mood appropriate, affect normal Results - Laboratory Findings CBC and BMP: 03/27/18 14:08 03/27/18 04:28 ABG ABG pH 7.45 pH Units (7.32-7.45) 03/25/18 04:20 ABG pCO2 43 mmHg (35-45) 03/25/18 04:20 ABG pO2 62 mmHg (85-104) L 03/25/18 04:20 ABG O2 Saturation 92 % (95-98) L 03/25/18 04:20 PT/INR, D-dimer PT 14.3 Seconds (9.4-12.1) H 03/24/18 13:39 Abnormal lab findings: Abnormal lab results RBC 2.53 M/mcL (4.19-5.50) L 03/27/18 04:28 Hgb 7.8 g/dL (12.9-16.9) L 03/27/18 08:27 Hct 26.3 % (37.5-50.1) L 03/27/18 08:27 MCH 27.7 pg (28.0-33.3) L 03/27/18 04:28 MCHC 30.0 g/dL (31.6-35.5) L 03/27/18 04:28 RDW 17.0 % (11.5-14.5) H 03/27/18 04:28 Lymphocytes # 0.3 K/mcL (0.6-4.6) L 03/27/18 04:28 PT 14.3 Seconds (9.4-12.1) H 03/24/18 13:39 ABG pO2 62 mmHg (85-104) L 03/25/18 04:20 ABG HCO3 30 mEq/L (21-27) H 03/25/18 04:20 ABG Total CO2 31 mEq/L (20-26) H 03/25/18 04:20 ABG O2 Saturation 92 % (95-98) L 03/25/18 04:20 ABG Base Excess 5 mEq/L (-2 to 3) H 03/25/18 04:20 Sodium 134 mEq/L (136-145) L 03/27/18 04:28 BUN 89 mg/dL (8-23) H 03/27/18 04:28 Creatinine 8.84 mg/dL (0.70-1.30) H 03/27/18 04:28 Est GFR ( Amer) 7 (> 60) L 03/27/18 04:28 Est GFR (Non-Af Amer) 6 (> 60) L 03/27/18 04:28 Glucose 152 mg/dL (70-105) H 03/27/18 04:28 POC Glucose 165 mg/dL (70-99) H 03/26/18 16:26 Calculated Osmolality 308 (280-300) H 03/27/18 04:28 Troponin I 0.04 ng/mL (< 0.04) H* 03/24/18 16:03 B-Natriuretic Peptide 3475 pg/mL (Less than 100) H 03/24/18 10:06 Serum Total Protein 5.7 g/dL (6.4-8.9) L 03/26/18 05:24 Albumin 3.1 g/dL (3.5-5.7) L 03/26/18 05:24 - Microbiology Findings Microbiology Findings: Microbiology, Last 48 Hours 03/26/18 18:40 Sputum Culture - Final Sputum 03/26/18 18:40 Legionella Antigen - Final Urine,Catheterized Streptococcus pneumoniae Antigen (M - Final - Clinical Findings Intake & Output: Intake & Output 03/26/18 03/27/18 03/27/18 23:59 07:59 15:59 Intake Total 350 / 350 1540 / 1540 Output Total 100 / 100 Balance 250 / 250 1540 / 1540 Weight 104.5 kg
[2018-03-27] MEDS ORDERED: *HR* Heparin 10,000 UNIT/10 ML VIAL IV PRN (12:11)
[2018-03-27] MEDS: *HR* Heparin 5,000 UNIT/ML VIAL SQ SCH ×2 (12:13→16:58)
[2018-03-27] MEDS ORDERED: Aminoglycoside Consult 1 EACH MC ONE (14:48)
[2018-03-27 14:51] LABS: Hematocrit 31.5 % (37.5-50.1)
[2018-03-27 14:55] LABS: Hemoglobin 9.6 g/dL (12.9-16.9)
[2018-03-27 14:58] LABS: Mycoplasma pneumoniae IgG 0.07 U/L (<=0.09)
[2018-03-27] MEDS ORDERED: Vancomycin 500 MG in 0.9 % Sodium Chloride Mini Bag 100 ML IVPB ONE (16:00)
[2018-03-27] MEDS ORDERED: Cefepime HCl 1,000 MG in Water for inj. (sterile) 20 ML 10 ML IVP SCH (16:00)
[2018-03-27] MEDS: Budesonide Neb 0.5 MG/2 ML IH SCH (20:15)
[2018-03-27 20:29] LABS: Hematocrit 29.2 % (37.5-50.1)
[2018-03-28] MEDS: Ipratropium/Albuterol Neb 3 ML IH SCH ×7 (00:20→23:17)
[2018-03-28] MEDS: *HR* Heparin 5,000 UNIT/ML VIAL SQ SCH ×2 (04:19→17:11)
[2018-03-28 05:46] LABS: Basophils % 0.1 %; Hematocrit 27.2 % (37.5-50.1); Hemoglobin 8.6 g/dL (12.9-16.9); Immature Granulocytes % 1.4 % (0-4); Lymphocytes # 0.5 K/mcL (0.6-4.6); Mean Corpuscular HGB Conc 31.6 g/dL (31.6-35.5); Mean Corpuscular Hemoglobin 28.5 pg (28.0-33.3); Mean Corpuscular Volume 90.1 fL (83.0-100.0); Mean Platelet Volume 9.5 fL (9.4-12.4); Monocytes # 0.9 K/mcL (0.0-1.3); Monocytes % 12.1 %; Neutrophils # 5.7 K/mcL (1.6-8.9); Platelet Count 215 K/mcL (140-400); Red Blood Count 3.02 M/mcL (4.19-5.50); Red Cell Distribution Width 17.4 % (11.5-14.5); Segmented Neutrophils % 79.4 %
[2018-03-28 05:58] LABS: Calcium 8.3 mg/dL (8.6-10.3); Potassium 4.8 mEq/L (3.5-5.1)
[2018-03-28] MEDS: Budesonide Neb 0.5 MG/2 ML IH SCH ×2 (07:48→19:49)
[2018-03-28] MEDS: predniSONE 20 MG TABLET PO SCH (08:29)
[2018-03-28] MEDS: Azithromycin 250 MG TABLET PO SCH (08:30)
[2018-03-28] MEDS: Renal Vitamin 1 CAP CAPSULE PO SCH (08:30)
[2018-03-28] MEDS: Aspirin Enteric Coated 81 MG Tablet PO SCH (08:30)
[2018-03-28] MEDS: Cholecalciferol (D-3) 1,000 UNIT TABLET PO SCH (08:31)
--- NOTE | 2018-03-28 08:31 | Pulmonology Progress Note ---
<Frances Cruz - Last Filed: 03/28/18 18:18> Date of Encounter: 03/28/18 Time of Encounter: 11:00 Assessment and Plan (1) Acute and chronic respiratory failure Current Visit: Yes Status: Acute Multifactorial d/t COPD exacerbation with PNA, fluid-overload in HFrEF, and ESRD on hemodialysis SpO2 96% on 4.5L nasal cannula, normally wears 3L at home ESR 37--elevated, but if acute episode was related to [place]'s would expect level to be significantly higher Cefepime can be stopped; PO augmentin x 7 days if desired, however cultures continue to show no growth and WBC trending down Wean from PO prednisone c-ANCA ordered, sent out today, results pending Continue to wean O2 until he's back on his home level, maintain SpO2 > 90% Continue scheduled and PRN duonebs Qualifiers: Respiratory failure complication: hypoxia Qualified Code(s): J96.21 - Acute and chronic respiratory failure with hypoxia (2) CHF (congestive heart failure) Current Visit: Yes Status: Acute MWF diuresis See above Qualifiers: Heart failure type: diastolic Heart failure chronicity: acute on chronic Qualified Code(s): I50.33 - Acute on chronic diastolic (congestive) heart failure (3) COPD exacerbation Current Visit: Yes Status: Acute Continue bronchodilators See above (4) Pneumonia Current Visit: No Status: Acute See above Qualifiers: Pneumonia type: due to unspecified organism Laterality: bilateral Lung l ocation: lower lobe of lung Qualified Code(s): J18.1 - Lobar pneumonia, unspecified organism Subjective Principal diagnosis: acute on chronic hypoxic respiratory failure Interval history: Seen and examined at bedside. Patients is also present in the room. Reports he feels fine, unchanged from yesterday. He denies fevers, chills, abdominal pain, worsening LE edema. Continues to have cough with difficulty bringing up sputum, as described yesterday. Objective PUL Vital signs: Last Vital Signs Temp 97.9 F 03/28/18 07:16 Pulse 98 03/28/18 07:16 Resp 16 03/28/18 07:48 BP 123/53 03/28/18 07:16 Pulse Ox 99 03/28/18 07:48 General appearance: no acute distress, alert Eyes: nonicteric ENT: oropharynx moist Neck: supple Effort: normal Auscultation: bilateral: clear, diminished breath sounds Cardiovascular: regular rate and rhythm Gastrointestinal: normoactive bowel sounds, soft, non-tender Integumentary: normal Extremities: no cyanosis, no clubbing, edema (BLE, +1 pitting edema on R) normal mental status, non-focal exam, pupils equal and round, CN II-XII normal mood appropriate, affect normal Results - Laboratory Findings CBC and BMP: 03/28/18 05:02 03/28/18 05:02 ABG ABG pH 7.45 pH Units (7.32-7.45) 03/25/18 04:20 ABG pCO2 43 mmHg (35-45) 03/25/18 04:20 ABG pO2 62 mmHg (85-104) L 03/25/18 04:20 ABG O2 Saturation 92 % (95-98) L 03/25/18 04:20 PT/INR, D-dimer PT 14.3 Seconds (9.4-12.1) H 03/24/18 13:39 Abnormal lab findings: Abnormal lab results RBC 3.02 M/mcL (4.19-5.50) L 03/28/18 05:02 Hgb 8.6 g/dL (12.9-16.9) L 03/28/18 05:02 Hct 27.2 % (37.5-50.1) L 03/28/18 05:02 RDW 17.4 % (11.5-14.5) H 03/28/18 05:02 Lymphocytes # 0.5 K/mcL (0.6-4.6) L 03/28/18 05:02 ESR 37 mm/hr (0-10) H 03/27/18 16:43 PT 14.3 Seconds (9.4-12.1) H 03/24/18 13:39 ABG pO2 62 mmHg (85-104) L 03/25/18 04:20 ABG HCO3 30 mEq/L (21-27) H 03/25/18 04:20 ABG Total CO2 31 mEq/L (20-26) H 03/25/18 04:20 ABG O2 Saturation 92 % (95-98) L 03/25/18 04:20 ABG Base Excess 5 mEq/L (-2 to 3) H 03/25/18 04:20 BUN 61 mg/dL (8-23) H 03/28/18 05:02 Creatinine 5.73 mg/dL (0.70-1.30) H 03/28/18 05:02 Est GFR ( Amer) 12 (> 60) L 03/28/18 05:02 Est GFR (Non-Af Amer) 10 (> 60) L 03/28/18 05:02 Glucose 134 mg/dL (70-105) H 03/28/18 05:02 POC Glucose 159 mg/dL (70-99) H 03/27/18 07:14 Calculated Osmolality 303 (280-300) H 03/28/18 05:02 Calcium 8.3 mg/dL (8.6-10.3) L 03/28/18 05:02 Troponin I 0.04 ng/mL (< 0.04) H* 03/24/18 16:03 B-Natriuretic Peptide 3475 pg/mL (Less than 100) H 03/24/18 10:06 Serum Total Protein 5.7 g/dL (6.4-8.9) L 03/26/18 05:24 Albumin 3.1 g/dL (3.5-5.7) L 03/26/18 05:24 - Microbiology Findings Microbiology Findings: Microbiology, Last 48 Hours 03/26/18 18:40 Sputum Culture - Final Sputum 03/26/18 18:40 Legionella Antigen - Final Urine,Catheterized Streptococcus pneumoniae Antigen (M - Final - Clinical Findings Intake & Output: Intake & Output 03/27/18 03/28/18 03/28/18 23:59 07:59 15:59 Intake Total Balance Weight 103.1 kg - VTE Documentation of Mechanical Device: Intermittent pneumatic compression device Consult Discharge Plan - Plan Referrals: NONE,PCP [Primary Care Provider] - <Antonio Mancia M - Last Filed: 03/29/18 12:58> Objective PUL Vital signs: Last Vital Signs Temp 97.5 F L 03/28/18 11:13 Pulse 85 03/28/18 11:13 Resp 16 03/28/18 12:00 BP 137/73 03/28/18 11:13 Pulse Ox 95 03/28/18 12:00 Results - Laboratory Findings CBC and BMP: 03/29/18 04:26 03/29/18 04:26 ABG ABG pH 7.45 pH Units (7.32-7.45) 03/25/18 04:20 ABG pCO2 43 mmHg (35-45) 03/25/18 04:20 ABG pO2 62 mmHg (85-104) L 03/25/18 04:20 ABG O2 Saturation 92 % (95-98) L 03/25/18 04:20 PT/INR, D-dimer PT 14.3 Seconds (9.4-12.1) H 03/24/18 13:39 Abnormal lab findings: Abnormal lab results RBC 3.02 M/mcL (4.19-5.50) L 03/28/18 05:02 Hgb 8.6 g/dL (12.9-16.9) L 03/28/18 05:02 Hct 27.2 % (37.5-50.1) L 03/28/18 05:02 RDW 17.4 % (11.5-14.5) H 03/28/18 05:02 Lymphocytes # 0.5 K/mcL (0.6-4.6) L 03/28/18 05:02 ESR 37 mm/hr (0-10) H 03/27/18 16:43 PT 14.3 Seconds (9.4-12.1) H 03/24/18 13:39 ABG pO2 62 mmHg (85-104) L 03/25/18 04:20 ABG HCO3 30 mEq/L (21-27) H 03/25/18 04:20 ABG Total CO2 31 mEq/L (20-26) H 03/25/18 04:20 ABG O2 Saturation 92 % (95-98) L 03/25/18 04:20 ABG Base Excess 5 mEq/L (-2 to 3) H 03/25/18 04:20 BUN 61 mg/dL (8-23) H 03/28/18 05:02 Creatinine 5.73 mg/dL (0.70-1.30) H 03/28/18 05:02 Est GFR ( Amer) 12 (> 60) L 03/28/18 05:02 Est GFR (Non-Af Amer) 10 (> 60) L 03/28/18 05:02 Glucose 134 mg/dL (70-105) H 03/28/18 05:02 POC Glucose 159 mg/dL (70-99) H 03/27/18 07:14 Calculated Osmolality 303 (280-300) H 03/28/18 05:02 Calcium 8.3 mg/dL (8.6-10.3) L 03/28/18 05:02 Troponin I 0.04 ng/mL (< 0.04) H* 03/24/18 16:03 B-Natriuretic Peptide 3475 pg/mL (Less than 100) H 03/24/18 10:06 Serum Total Protein 5.7 g/dL (6.4-8.9) L 03/26/18 05:24 Albumin 3.1 g/dL (3.5-5.7) L 03/26/18 05:24 - Microbiology Findings Microbiology Findings: Microbiology, Last 48 Hours 03/26/18 18:40 Sputum Culture - Final Sputum 03/26/18 18:40 Legionella Antigen - Final Urine,Catheterized Streptococcus pneumoniae Antigen (M - Final - Clinical Findings Intake & Output: Intake & Output 03/27/18 03/28/18 03/28/18 23:59 07:59 15:59 Intake Total 360 / 360 Balance 360 / 360 Weight 103.1 kg - Attending Attestation I examined this patient and my medical decision-making was reviewed with the Resident Physician. I agree with the documented findings, disposition and treatment plan as described except to the extent set forth below. Patient seen and examined. Labs, radiology, chart personally reviewed. Agree with resident's history and physical, assessment, plan with following comments: RN ADMISSION: Patient follows commands, Pulmonary: Acceptable oxygenation and ventilation. Patient is feeling better and HD is helping him. Continue to wean off FIO2 to keep SPO2 90% and wean off systemic steroid. I agree with hemodialysis on frequently. Please call for any questions. Patient is to follow-up as outpatient.
--- NOTE | 2018-03-28 08:36 | Internal Med Progress Note ---
<BacilioZack S - Last Filed: 03/28/18 10:52> Hospitalist Progress Note - Encounter Date of Encounter: 03/28/18 Time of Encounter: 08:33 - Subjective Interval History: Mr. Castillo is a 67 year old male with PMH of Brendon's granulomatosis, HTN, COPD, CHF, ESRD on dialysis. He presented 03/24/18 from the pulmonologists office for oxgen saturation in the 60's and it took 5L to get back to the 90's. The pt was recently here for pneumonia and was seen in the ED and d[facility]. He continued to have symptoms and at follow up with pulmonology was sent to the ED. He reported bloody sputum that has been going on for 1 wk. He has chronic SOB at baseline and is chronically on oxygen. - baseline O2 is 3L - pt has a productive cough but no chest pain. He denies abd pain, N/V/D, palpiltations or blurry vision - he has lost about 40 lbs in the last 1mos - he denies any night sweats, fevers or chills He gets dialysis MWF. Dialyzed Tuesday 03/27 Pt has no complaints this morning. He denies chest pain. SOB improving, small amount of sputum production difficult to bring up. No N/V/D. No abd pain. He will have dialysis tomorrow. - Exam Vitals: Temp Pulse Resp BP Pulse Ox 97.9 F 98 16 123/53 99 03/28/18 07:16 03/28/18 07:16 03/28/18 07:48 03/28/18 07:16 03/28/18 07:48 Exam: General - AOx3, NAD, laying in bed HEENT - NCAT, missing part of his left ear, moist mucus membranes Cardio - s1s2 cta no mrg rrr lungs -decreased breath sounds bilaterally, airflow better this morning, wheezing on expiration abd - NTND, no rebound or guarding, obese abd Neuro - no FND extremities - 1+ pitting edema Skin - no rash, no open wound - Assessment and Plan (1) COPD exacerbation Current Visit: Yes Status: Acute Assessment and Plan: Pt presents with increased sputum productive , bloody in color - chronically uses 3L at baseline, currently 92% on 4L CT scan on 03/10 - showed multiple nodules - masslike consolidation within the lingula - pneumonia vs neoplasm Repeat CT scan on 03/24 - increasing multifocal airspace disease B/L with bilat increasing pleural effusions - pneumonia favored over edema - ?neoplastic process CXR - Superimposed worsened streaky/reticular opacities , may be atelectasis, inf iltrates and/or interstitial edema. - No overt pulmonary edema Pt does NOT meet sepsis/SIRS criteria at this time - WBC count 7.1 - HR 98 - RR 18 - BP has been stable Legionella, s pneumo anitgens negative Sputum cx negative Plan: - 60mg PO prednisone daily - duonebs scheduled and prn for SOB - Mucinex - Azithromycin day 10/01, cefepime day 5, plan to further de-escalate today dep ending on pulmonology opinion D/c vancomycin today, pt is clinically improving Give cefepime after dialysis, will speak to pharmacist about this Blood cultures pending mycoplasma antigen pending - respiratory following, appreciate recommendations if no improvement and pleural effusion worsens, they plan to do thoracentesis US guided recommend extra dialysis continue to wean O2 until pt is back to baseline O2 use at home and maintainig O2 sat >90% - PTOT consulted (2) Acute and chronic respiratory failure Current Visit: Yes Status: Acute Assessment and Plan: See plan above for COPD exacerbation. (3) Anemia Current Visit: Yes Status: Chronic Assessment and Plan: Pt hemoglobin on admission 8.8 - 03/27 hemoglobin is 7.0 - pt received 2 U of prbc during dialysis yesterday - pt has epoetin ordered as per nephrology - low MCV, most likely an anemia of chronic dz secondary to ESRD and low EPO l evel Hemoglobin this morning 8.6 - monitor H&H (4) Sepsis Current Visit: Yes Status: Resolved Assessment and Plan: See plan as above for COPD exacerbation - currently doesnt meet sepsis criteria - resolved for now (5) Heart failure Current Visit: Yes Status: Acute Assessment and Plan: BNP on admission is 3475 - secondary to ESRD and fluid overload - acute decompensated HF LVEF 55-60% - mild concentric LVH - LV diastolic dysfxn Dialysis MWF, had over 2.5 L taken off at last session - last dialysis was yesterday, plan for dialysis tomorrow Plan: - strict I&O's - fluid restriction diet 1.5L - cardiac diet (6) HCAP (healthcare-associated pneumonia) Current Visit: Yes Status: Acute Assessment and Plan: See plan as above for COPD exacerbation (7) Essential hypertension Current Visit: No Status: Chronic Assessment and Plan: BP 123/53 - continue lopressor - add hydraolazine 10mg IVP q6hr prn SBP >180 (8) Obesity (BMI 30-39.9) Current Visit: No Status: Chronic Assessment and Plan: BMI 35.6 - lifestyle modifications (9) DVT prophylaxis Current Visit: No Status: Acute Assessment and Plan: scd, sq heparin (10) Shiloh's granulomatosis (granulomatosis with polyangiitis) Current Visit: No Status: Chronic Assessment and Plan: May be contributing to hemoptysis and to renal failure - (+) serine protease 3 ab on 08/2017 ESR 37 Plan: -repeat c ANCA pending (11) Fluid overload Current Visit: Yes Status: Acute Assessment and Plan: BNP on admission is 3475 LVEF 55-60% - mild concentric LVH - LV diastolic dysfxn Dialysis MWF Plan: - strict I&O's - fluid restriction diet 1.5L (12) History of chronic CHF Current Visit: No Status: Chronic Assessment and Plan: LVEF 55-60% - mild concentric LVH - LV diastolic dysfxn Plan: - cardiac diet - fluid resitrction diet to 1.5 L per day (13) ESRD (end stage renal disease) on dialysis Current Visit: Yes Status: Chronic Assessment and Plan: On dialysis MWF On admission - BUN 60 - Creatinine 7.87 03/28 - BUN 61 -Creatinine 5.73 Plan: - monitor I&O's - nephrology following, appreciate recommendations - avoid nephrotoxins (14) Troponin level elevated Current Visit: Yes Status: Acute Assessment and Plan: Troponin at 0.05, 0.04 - most likely a type II GA due to fluid overload (15) Lung nodule Current Visit: Yes Status: Acute Assessment and Plan: Lung nodules on CT scan last ER visit - plan for outpatient follow up (16) Abnormal CT of the abdomen Current Visit: Yes Status: Acute Assessment and Plan: CT on 03/24 - multifocal stranding in the fat between the common iliac arteries and extending in the pelvis along the external iliac arteries, - This is indeterminate finding with no clear etiology. - This appears separate from the aortic aneurysm Repeat CT on 03/27 - nonspeciifc stranding w/in the pelvis is decreased from previous study - no acute vascular abnormality - infrarenal AAA 4.7cm Plan: - vascular consulted - discussed CT findings with me, said they aren't concerned about an emergency - vascular signed off the case - monitor clinically - Time Spent with Patient Total time spent is greater than 50% in coordination of care (as documented) at patient's floor/unit and/or counseling patient: less than 15 minutes Plan of Care Discussed with: patient Internal Medicine: Result - Labs CBC & Chem 7: 03/28/18 05:02 03/28/18 05:02 Labs: Short CBC 03/27/18 03/27/18 03/27/18 Range/Units 08:27 14:08 20:15 WBC (4.3-11.1) K/mcL Hgb 7.8 L 9.6 L D 9.0 L (12.9-16.9) g/dL Hct 26.3 L 31.5 L 29.2 L (37.5-50.1) % Plt Count (140-400) K/mcL Neutrophils # (1.6-8.9) K/mcL 03/28/18 Range/Units 05:02 WBC 7.1 (4.3-11.1) K/mcL Hgb 8.6 L (12.9-16.9) g/dL Hct 27.2 L (37.5-50.1) % Plt Count 215 (140-400) K/mcL Neutrophils # 5.7 (1.6-8.9) K/mcL BMP 03/28/18 05:02 Sodium 137 Potassium 4.8 Chloride 101 Carbon Dioxide 26 BUN 61 H Creatinine 5.73 H Glucose 134 H Calcium 8.3 L - ABG Interpretation ABG results: ABG ABG pH 7.45 pH Units (7.32-7.45) 03/25/18 04:20 ABG pCO2 43 mmHg (35-45) 03/25/18 04:20 ABG pO2 62 mmHg (85-104) L 03/25/18 04:20 ABG O2 Saturation 92 % (95-98) L 03/25/18 04:20 PT/INR, D-dimer PT 14.3 Seconds (9.4-12.1) H 03/24/18 13:39 - Impressions Impressions Abdomen/Pelvis CTA 03/27/18 11:00 IMPRESSION: Nonspecific stranding within the pelvis is decreased from the previous study. No acute vascular abnormality. Infrarenal abdominal aortic aneurysm measures up to 4.7 cm. Bladder wall thickening. RECOMMENDATIONS: Managing Abdominal Aortic Aneurysms 2.6-2.9 cm: Every 5 years* 3.0-3.4 cm: Every 3 years. 3.5-3.9 cm: Every 1 year. 4.0-4.4 cm: Every 1 year. Recommend vascular consultation. 4.5-5.4 cm: Every 6 months. Recommend vascular consultation. Greater than or equal to 5.5 cm: Referral to vascular surgeon. *For abdominal aortas with maximum diameter of 2.6-2.9 cm meeting criteria for AAA (>50% of proximal normal segment). Reference: J Vasc Surg. 2008;50(4 Suppl):S2-49 D/ / 03/27/2018 19:26:53 Vladimir Campa MD / ryan Interpreting Provider: Vladimir Campa MD - VTE Documentation of Mechanical Device: Intermittent pneumatic compression device Consult Discharge Plan - Plan Referrals: NONE,PCP [Primary Care Provider] - <Jeffy Hickman - Last Filed: 03/28/18 14:18> Hospitalist Progress Note - Encounter Time of Encounter: 10:30 - Exam Vitals: Temp Pulse Resp BP Pulse Ox 97.5 F L 85 16 137/73 95 03/28/18 11:13 03/28/18 11:13 03/28/18 12:00 03/28/18 11:13 03/28/18 12:00 - Assessment and Plan (1) Essential hypertension Current Visit: No Status: Chronic (2) Obesity (BMI 30-39.9) Current Visit: No Status: Chronic (3) DVT prophylaxis Current Visit: No Status: Acute (4) Shiloh's granulomatosis (granulomatosis with polyangiitis) Current Visit: No Status: Chronic (5) HCAP (healthcare-associated pneumonia) Current Visit: Yes Status: Acute (6) Fluid overload Current Visit: Yes Status: Acute (7) COPD exacerbation Current Visit: Yes Status: Acute (8) History of chronic CHF Current Visit: No Status: Chronic (9) ESRD (end stage renal disease) on dialysis Current Visit: Yes Status: Chronic (10) Troponin level elevated Current Visit: Yes Status: Acute (11) Lung nodule Current Visit: Yes Status: Acute (12) Acute and chronic respiratory failure Current Visit: Yes Status: Acute (13) Sepsis Current Visit: Yes Status: Resolved (14) Heart failure Current Visit: Yes Status: Acute (15) Anemia Current Visit: Yes Status: Chronic (16) Abnormal CT of the abdomen Current Visit: Yes Status: Acute - Time Spent with Patient Total time spent is greater than 50% in coordination of care (as documented) at patient's floor/unit and/or counseling patient: Internal Medicine: Result - Labs CBC & Chem 7: 03/28/18 05:02 03/28/18 05:02 Labs: Short CBC 03/27/18 03/27/18 03/28/18 Range/Units 14:08 20:15 05:02 WBC 7.1 (4.3-11.1) K/mcL Hgb 9.6 L D 9.0 L 8.6 L (12.9-16.9) g/dL Hct 31.5 L 29.2 L 27.2 L (37.5-50.1) % Plt Count 215 (140-400) K/mcL Neutrophils # 5.7 (1.6-8.9) K/mcL BMP 03/28/18 05:02 Sodium 137 Potassium 4.8 Chloride 101 Carbon Dioxide 26 BUN 61 H Creatinine 5.73 H Glucose 134 H Calcium 8.3 L - ABG Interpretation ABG results: ABG ABG pH 7.45 pH Units (7.32-7.45) 03/25/18 04:20 ABG pCO2 43 mmHg (35-45) 03/25/18 04:20 ABG pO2 62 mmHg (85-104) L 03/25/18 04:20 ABG O2 Saturation 92 % (95-98) L 03/25/18 04:20 PT/INR, D-dimer PT 14.3 Seconds (9.4-12.1) H 03/24/18 13:39 - Impressions Impressions Abdomen/Pelvis CTA 03/27/18 11:00 IMPRESSION: Nonspecific stranding within the pelvis is decreased from the previous study. No acute vascular abnormality. Infrarenal abdominal aortic aneurysm measures up to 4.7 cm. Bladder wall thickening. RECOMMENDATIONS: Managing Abdominal Aortic Aneurysms 2.6-2.9 cm: Every 5 years* 3.0-3.4 cm: Every 3 years. 3.5-3.9 cm: Every 1 year. 4.0-4.4 cm: Every 1 year. Recommend vascular consultation. 4.5-5.4 cm: Every 6 months. Recommend vascular consultation. Greater than or equal to 5.5 cm: Referral to vascular surgeon. *For abdominal aortas with maximum diameter of 2.6-2.9 cm meeting criteria for AAA (>50% of proximal normal segment). Reference: J Vasc Surg. 2008;50(4 Suppl):S2-49 D/ / 03/27/2018 19:26:53 Vladimir Campa MD / ryan Interpreting Provider: Vladimir Campa MD - Attending Attestation I saw evaluated and examined this patient and my medical decision-making was reviewed with the Resident Physician, Zack Ribera. I agree with the documented findings, disposition and treatment plan as described except to any changes set forth below. We independently had [id number] contact with the patient. Patient complains of cough and not being able to cough up sputum this morning. He did have some hemoptysis last night. Denies any fevers or chills overnight. No nausea or vomiting. No abdominal pain. No chest pain or palpitations. Remains on 4-5 L O2 supplementation. On examination, patient is awake and alert. Heart sounds are normal. Decreased air entry bilaterally. Especially at the bases. Abdomen is soft, nontender. Mild pedal edema. Acute on chronic respiratory failure with hypoxia: Continue O2 supplementation. Treat underlying conditions and wean FiO2 as tolerated. May need O2 requalification tomorrow at higher level O2 supplementation. COPD exacerbation: Continue current management with bronchodilators, steroids. We will also place him on Mucinex. End-stage renal disease on hemodialysis: Continue treatment with hemodialysis per nephrology recommendations. Patient due for dialysis tomorrow. Acute on chronic diastolic heart failure: Continue fluid restriction. 1 management with hemodialysis. Healthcare associated pneumonia: Has been on broad-spectrum antibiotic course. Cultures have been negative at this time. Will discuss with pulmonology about need for continued antibiotics elevated this can be stopped. Essential hypertension: Continue Current medications Anemia: Due to end-stage renal disease. Hemoglobin 8.6 today. We will monitor closely. Moderate risk for complications <Zack Ribera - Last Filed: 03/28/18 10:52> (2) Acute and chronic respiratory failure Qualifiers: Respiratory failure complication: hypoxia Qualified Code(s): J96.21 - Acute and chronic respiratory failure with hypoxia (3) Anemia Qualifiers: Anemia type: due to chronic kidney disease Chronic kidney disease stage: on chronic dialysis Qualified Code(s): N18.6 - End stage renal disease; D63.1 - Anemia in chronic kidney disease; Z99.2 - Dependence on renal dialysis (4) Sepsis Qualifiers: Sepsis type: sepsis due to unspecified organism Qualified Code(s): A41.9 - Sepsis, unspecified organism (5) Heart failure Qualifiers: Heart failure type: diastolic Heart failure chronicity: acute on chronic Qualified Code(s): I50.33 - Acute on chronic diastolic (congestive) heart failure (11) Fluid overload Qualifiers: Hypervolemia type: unspecified Qualified Code(s): E87.70 - Fluid overload, unspecified <Jeffy Hickman - Last Filed: 03/28/18 14:18> (6) Fluid overload Qualifiers: Hypervolemia type: unspecified Qualified Code(s): E87.70 - Fluid overload, unspecified (12) Acute and chronic respiratory failure Qualifiers: Respiratory failure complication: hypoxia Qualified Code(s): J96.21 - Acute and chronic respiratory failure with hypoxia (13) Sepsis Qualifiers: Sepsis type: sepsis due to unspecified organism Qualified Code(s): A41.9 - Sepsis, unspecified organism (14) Heart failure Qualifiers: Heart failure type: diastolic Heart failure chronicity: acute on chronic Qualified Code(s): I50.33 - Acute on chronic diastolic (congestive) heart failure (15) Anemia Qualifiers: Anemia type: due to chronic kidney disease Chronic kidney disease stage: on chronic dialysis Qualified Code(s): N18.6 - End stage renal disease; D63.1 - Anemia in chronic kidney disease; Z99.2 - Dependence on renal dialysis
--- NOTE | 2018-03-28 10:10 | Nephrology Progress Note ---
Addendum entered and electronically signed by Lebron Jones MD 03/28/18 18:07: I examined this patient and discussed the medical decision-making with CAPRI Reyes. I agree with the documented findings, disposition and treatment plan as described except to the extent set forth below. Original Note: Date of Encounter: 03/28/18 Time of Encounter: 10:06 - Assessment and Plan (1) ESRD (end stage renal disease) on dialysis Current Visit: Yes Status: Chronic Current regimen is MWF. HD completed yesterday. Plan for HD tomorrow. Avoid nephrotoxins and renal dose. Strict I/O (2) HCAP (healthcare-associated pneumonia) Current Visit: Yes Status: Acute per primary team (3) CHF (congestive heart failure) Current Visit: Yes Status: Acute Per primary. Qualifiers: Heart failure type: diastolic Heart failure chronicity: acute on chronic Qualified Code(s): I50.33 - Acute on chronic diastolic (congestive) heart failure (4) Anemia Current Visit: Yes Status: Chronic Goal Hgb is 10-11. Hbg is 8.6, continue Epo. Qualifiers: Anemia type: due to chronic kidney disease Chronic kidney disease stage: on chronic dialysis Qualified Code(s): N18.6 - End stage renal disease; D63.1 - Anemia in chronic kidney disease; Z99.2 - Dependence on renal dialysis Subjective Principal diagnosis: acute on chronic hypoxic respiratory failure Interval history: Pt seen and examined, doing well. Denies CP, admits to SOB. Denies nausea/vomiting/diarrhea. Objective - Vital Signs Vital signs: Vital Signs Temp Pulse Resp BP Pulse Ox 03/28/18 07:48 16 99 03/28/18 07:16 97.9 F 98 18 123/53 92 03/28/18 04:52 20 95 03/28/18 04:25 98.5 F 87 18 126/61 95 03/28/18 00:20 18 93 03/27/18 23:53 98.4 F 82 18 138/69 92 03/27/18 21:58 93 03/27/18 20:16 18 93 03/27/18 19:03 97.6 F 88 16 143/66 92 03/27/18 16:39 97.6 F 82 16 130/67 94 03/27/18 16:33 14 94 03/27/18 12:46 97.8 F 18 146/84 03/27/18 12:30 136/73 03/27/18 12:15 137/85 03/27/18 12:00 141/71 03/27/18 11:45 151/72 03/27/18 11:30 132/72 03/27/18 11:25 97.4 F L 85 18 125/72 03/27/18 11:15 143/77 03/27/18 11:10 97.7 F 84 20 129/75 03/27/18 11:00 135/73 03/27/18 10:55 97.6 F 83 18 126/68 03/27/18 10:45 136/75 03/27/18 10:40 97.8 F 89 20 129/63 03/27/18 10:30 131/73 03/27/18 10:25 97.6 F 89 18 141/69 03/27/18 10:15 134/65 03/27/18 10:10 98.0 F 89 18 139/69 Intake and Output 03/27/18 03/28/18 03/28/18 23:59 07:59 15:59 Intake Total 240 / 240 Balance 240 / 240 Intake: IV Fluids Maxipime 1,000 MG In Water for inj. (sterile) 10 ML @ 300 mls/ hr IVP Q24H FOR[facility], 1928–1983 Rx#:[id number] Oral 240 / 240 Other: Weight 103.1 kg Blood Glucose* 166 98 - General Appearance General appearance: Present: well-developed, well-nourished EENT: Present: ATNC, hearing intact, vision intact Neck: Present: supple Respiratory: Present: clear Cardiology: Present: edema (Trace bilat lower extremity edema.), normal S1, normal S2 Dialysis Vascular Access: Arteriovenous Fistula (Tunneled, Line DRSG C/D/I,) thrill: Yes bruit: Yes Additional Comments: Fistula is still maturing. Integumentary: Present: no rash, warm and dry Neurologic: Present: alert and oriented x3 Psychiatric: Present: mood/affect appropriate, cooperative - Lab 03/28/18 05:02 03/28/18 05:02 Most recent lab results ABG pH 7.45 pH Units (7.32-7.45) 03/25/18 04:20 ABG pCO2 43 mmHg (35-45) 03/25/18 04:20 ABG pO2 62 mmHg (85-104) L 03/25/18 04:20 ABG HCO3 30 mEq/L (21-27) H 03/25/18 04:20 ABG O2 Saturation 92 % (95-98) L 03/25/18 04:20 Calcium 8.3 mg/dL (8.6-10.3) L 03/28/18 05:02 - VTE Documentation of Mechanical Device: Intermittent pneumatic compression device Consult Discharge Plan - Plan Referrals: NONE,PCP [Primary Care Provider] -
[2018-03-29] MEDS: Ipratropium/Albuterol Neb 3 ML IH SCH ×5 (03:49→16:43)
[2018-03-29 05:21] LABS: Basophils % 0.1 %; Hematocrit 30.2 % (37.5-50.1); Hemoglobin 9.1 g/dL (12.9-16.9); Immature Granulocytes % 3.2 % (0-4); Lymphocytes # 0.7 K/mcL (0.6-4.6); Lymphocytes % 8.8 %; Mean Corpuscular HGB Conc 30.1 g/dL (31.6-35.5); Mean Corpuscular Hemoglobin 27.4 pg (28.0-33.3); Monocytes % 12.8 %; Neutrophils # 5.8 K/mcL (1.6-8.9); Platelet Count 242 K/mcL (140-400); Red Blood Count 3.32 M/mcL (4.19-5.50); Red Cell Distribution Width 16.7 % (11.5-14.5); Segmented Neutrophils % 75.1 %
[2018-03-29 05:43] LABS: Calcium 8.4 mg/dL (8.6-10.3); Potassium 5.3 mEq/L (3.5-5.1)
[2018-03-29] MEDS: *HR* Heparin 5,000 UNIT/ML VIAL SQ SCH (06:11)
[2018-03-29] MEDS ORDERED: *HR* Heparin 10,000 UNIT/10 ML VIAL IV PRN (07:25)
[2018-03-29] MEDS ORDERED: 0.9 % Sodium Chloride 250 ML IVC PRN (07:25)
[2018-03-29] MEDS ORDERED: 0.9 % Sodium Chloride 1,000 ML PRIME SCH (07:30)
[2018-03-29] MEDS ORDERED: 0.9 % Sodium Chloride 1,000 ML ONE (07:31)
[2018-03-29] MEDS: predniSONE 20 MG TABLET PO SCH (07:40)
[2018-03-29] MEDS: Renal Vitamin 1 CAP CAPSULE PO SCH (07:40)
[2018-03-29] MEDS: Aspirin Enteric Coated 81 MG Tablet PO SCH (07:40)
[2018-03-29] MEDS: Cholecalciferol (D-3) 1,000 UNIT TABLET PO SCH (07:40)
[2018-03-29] MEDS: Budesonide Neb 0.5 MG/2 ML IH SCH (07:51)
--- NOTE | 2018-03-29 09:43 | Nephrology Progress Note ---
Date of Encounter: 03/29/18 Time of Encounter: 09:40 - Assessment and Plan (1) ESRD (end stage renal disease) on dialysis Current Visit: Yes Status: Chronic Current regimen is MWF. HD in progress for today. Avoid nephrotoxins and renal dose. Strict I/O (2) HCAP (healthcare-associated pneumonia) Current Visit: Yes Status: Acute per primary team (3) CHF (congestive heart failure) Current Visit: Yes Status: Acute Per primary. Qualifiers: Heart failure type: diastolic Heart failure chronicity: acute on chronic Qualified Code(s): I50.33 - Acute on chronic diastolic (congestive) heart failure (4) Anemia Current Visit: Yes Status: Chronic Goal Hgb is 10-11. Hbg is 9.1, continue Epo. Qualifiers: Anemia type: due to chronic kidney disease Chronic kidney disease stage: on chronic dialysis Qualified Code(s): N18.6 - End stage renal disease; D63.1 - Anemia in chronic kidney disease; Z99.2 - Dependence on renal dialysis Subjective Principal diagnosis: acute on chronic hypoxic respiratory failure Interval history: Pt seen and examined during HD, tolerating well. Denies CP, admits to SOB. Denies nausea/vomiting/diarrhea. Objective - Vital Signs Vital signs: Vital Signs Temp Pulse Resp BP Pulse Ox 03/29/18 07:51 20 97 03/29/18 07:21 97.7 F 81 18 136/71 95 03/29/18 03:50 17 91 03/29/18 03:30 97.5 F L 80 18 109/61 90 03/28/18 23:28 97.6 F 81 19 142/69 93 03/28/18 23:12 18 93 03/28/18 19:49 18 97 03/28/18 19:37 98.4 F 82 18 120/62 94 03/28/18 16:10 97.6 F 84 18 124/64 94 03/28/18 15:40 96 03/28/18 12:00 16 95 03/28/18 11:13 97.5 F L 85 18 137/73 92 Intake and Output 03/28/18 03/29/18 03/29/18 23:59 07:59 15:59 Intake Total 300 / 300 480 / 480 Balance 300 / 300 480 / 480 Intake: Oral 300 / 300 480 / 480 Other: Meal Breakfast Percent of Meal Consumed 100% Weight 103.4 kg Blood Glucose* 213 99 - General Appearance General appearance: Present: well-developed, well-nourished EENT: Present: ATNC, hearing intact, vision intact Neck: Present: supple Respiratory: Present: clear Cardiology: Present: no edema, normal S1, normal S2 Dialysis Vascular Access: Arteriovenous Fistula (Drsg C/D/I) thrill: Yes bruit: Yes Gastrointestinal: Present: normoactive bowel sounds, no tenderness, no guarding Integumentary: Present: no rash, warm and dry Neurologic: Present: alert and oriented x3 Psychiatric: Present: mood/affect appropriate, cooperative - Lab 03/29/18 04:26 03/29/18 04:26 Most recent lab results ABG pH 7.45 pH Units (7.32-7.45) 03/25/18 04:20 ABG pCO2 43 mmHg (35-45) 03/25/18 04:20 ABG pO2 62 mmHg (85-104) L 03/25/18 04:20 ABG HCO3 30 mEq/L (21-27) H 03/25/18 04:20 ABG O2 Saturation 92 % (95-98) L 03/25/18 04:20 Calcium 8.4 mg/dL (8.6-10.3) L 03/29/18 04:26 - VTE Documentation of Mechanical Device: Intermittent pneumatic compression device Consult Discharge Plan - Plan Referrals: NONE,PCP [Primary Care Provider] -
--- NOTE | 2018-03-29 15:19 | Discharge Summary ---
- NOTES TO OUTPATIENT PROVIDER Notes to Outpatient Provider: Patient with history of granulomatosis with polyangiitis, end-stage renal disease on hemodialysis, hypertension, COPD was hospitalized here after presenting from pulmonologists office with complaints of persistent hypoxia despite using his baseline home oxygen. Patient had been discharged from the hospital recently for pneumonia and had completed 10 days course of Levaquin. He had been having hemoptysis also. He was diagnosed with acute on chronic respiratory failure due to combination of CHF COPD and possible healthcare associated pneumonia. He was evaluated by pulmonology and nephrology. He continued to receive dialysis here and was treated with steroids, broad-spectrum antibiotics along with O2 supplementation and bronchodilators. Blood cultures and sputum cultures have been negative. Patient's symptoms have slowly improved although he remains hypoxic. He does continue to have some cough and bloody sputum. Clinically he has been cleared for discharge by pulmonology. He has completed IV antibiotic course for possible pneumonia and as his cultures remain negative, no further antibiotics are indicated. Patient will continue to be on steroid taper and will follow up with pulmonology after discharge. Orders not resulted at time of discharge: Pending orders 03/24/18 14:53 Culture,Blood [BC] Routine 03/27/18 16:43 MPO/PR3 (ANCA) Antibodies Routine 03/30/18 04:00 Basic Metabolic Panel AM 0400 CBC no Diff [Complete Blood Count w/o Diff] [HEME] AM 0400 03/31/18 04:00 Basic Metabolic Panel AM 0400 CBC no Diff [Complete Blood Count w/o Diff] [HEME] AM 0400 Date of Encounter: 03/29/18 Time of Encounter: 15:16 - Discharge Diagnosis (1) Acute and chronic respiratory failure Priority: Primary Status: Acute Qualifiers: Respiratory failure complication: hypoxia Qualified Code(s): J96.21 - Acute and chronic respiratory failure with hypoxia (2) Essential hypertension Priority: Secondary Status: Chronic (3) Obesity (BMI 30-39.9) Priority: Secondary Status: Chronic (4) DVT prophylaxis Priority: Secondary Status: Acute (5) Shiloh's granulomatosis (granulomatosis with polyangiitis) Priority: Secondary Status: Chronic (6) HCAP (healthcare-associated pneumonia) Priority: Secondary Status: Acute (7) Fluid overload Priority: Secondary Status: Acute Qualifiers: Hypervolemia type: unspecified Qualified Code(s): E87.70 - Fluid overload, unspecified (8) COPD exacerbation Priority: Secondary Status: Acute (9) History of chronic CHF Priority: Secondary Status: Chronic (10) ESRD (end stage renal disease) on dialysis Priority: Secondary Status: Chronic (11) Troponin level elevated Priority: Secondary Status: Acute (12) Lung nodule Priority: Secondary Status: Acute (13) Sepsis Priority: Secondary Status: Resolved Qualifiers: Sepsis type: sepsis due to unspecified organism Qualified Code(s): A41.9 - Sepsis, unspecified organism (14) Heart failure Priority: Secondary Status: Acute Qualifiers: Heart failure type: diastolic Heart failure chronicity: acute on chronic Qualified Code(s): I50.33 - Acute on chronic diastolic (congestive) heart failure (15) Anemia Priority: Secondary Status: Chronic Qualifiers: Anemia type: due to chronic kidney disease Chronic kidney disease stage: on chronic dialysis Qualified Code(s): N18.6 - End stage renal disease; D63.1 - Anemia in chronic kidney disease; Z99.2 - Dependence on renal dialysis (16) Abnormal CT of the abdomen Priority: Secondary Status: Acute Hospital course: Mr. Castillo is a 67 year old male Patient with history of granulomatosis with polyangiitis, end-stage renal disease on hemodialysis, hypertension, COPD was hospitalized here after presenting from pulmonologists office with complaints of persistent hypoxia despite using his baseline home oxygen. Patient had been discharged from the hospital recently for pneumonia and had completed 10 days course of Levaquin. He had been having hemoptysis also. He was diagnosed with acute on chronic respiratory failure due to combination of CHF COPD and possible healthcare associated pneumonia. He was evaluated by pulmonology and nephrology. He continued to receive dialysis here and was treated with steroids, broad-spectrum antibiotics along with O2 supplementation and bronchodilators. Blood cultures and sputum cultures have been negative. Patient's symptoms have slowly improved although he remains hypoxic. He does continue to have some cough and bloody sputum. Clinically he has been cleared for discharge by pulmonology. He has completed IV antibiotic course for possible pneumonia and as his cultures remain negative, no further antibiotics are indicated. Patient will continue to be on steroid taper and will follow up with pulmonology after discharge. Discharge discussed with: patient, family, nurse, senior compensation consultant - Time Spent with Patient Total time spent providing and/or coordinating discharge services: Greater than 30 minutes (45 min) - Discharge Medications Prescriptions: GuaiFENesin ER [Mucinex] 600 mg PO BID #60 tbbp.12hr predniSONE [PredniSONE] 10 mg PO DAILY 15 Days #45 tablet Home Medications: Albuterol Sulfate [Ventolin Hfa] 2 puff IH Q4H 08/31/17 [History] Metoprolol [Lopressor] 25 mg PO BID 08/31/17 [History] Aspirin [Adult Aspirin] 81 mg PO DAILY 03/24/18 [History] Budesonide [Pulmicort Flexhaler 180mcg] 2 puff IH BID 03/24/18 [History] Calcium Carbonate 1,300 mg PO DAILY 03/24/18 [History] Cholecalciferol (D-3) [Vitamin D] 1,000 unit PO DAILY 03/24/18 [History] Folic Acid/Vit B Complex and C [Dialyvite Tablet] 1 tab PO DAILY 03/24/18 [History] Sevelamer [Renvela] 1,600 mg PO TID 03/24/18 [History] Tiotropium [Spiriva] 1 puff IH DAILY 03/24/18 [History] GuaiFENesin ER [Mucinex] 600 mg PO BID #60 tbbp.12hr 03/29/18 [Rx] predniSONE [PredniSONE] 10 mg PO DAILY 15 Days #45 tablet 03/29/18 [Rx] Allergies/Adverse Reactions: Allergy/AdvReac Type Severity Reaction Status Date / Time Amoxicillin Allergy Rash Verified 03/10/18 13:35 Penicillins AdvReac Hives Verified 08/31/17 01:38 Date of admission: 03/25/18 09:09 Primary care physician: PCP NONE Consults: 03/24/18 12:44 Consult to Pulmonology [CONS] Routine Consulting Provider: [facility] Cassandra Reason for Consult: Pneumonia/Hypoxia Call Completed: Yes 03/24/18 12:56 Consult to Nephrology [CONS] Routine Consulting Provider: [facility] [place]/NATASHA/DENIA/YONAS Reason for Consult: ESRD, fluid overload Call Completed: Yes 03/24/18 13:30 Consult to Dialysis [CONS] ONCE 03/25/18 13:39 Consult to Vascular Surgery [CONS] Routine Consulting Provider: Vascular Surgery Cassandra Reason for Consult: abnormal ct abdomen Call Completed: No 03/27/18 06:45 Consult to Dialysis [CONS] ONCE 03/27/18 14:00 Consult to Occupational Therapy [CONS] Routine Comment: Evaluate, develop and implement POC Reason for Consult: Evaluate, develop and implement POC Does patient have active BEDREST order?: No Is patient medically & hemodynamically stable?: Yes Consult to Physical Therapy [CONS] Routine Comment: Evaluate, develop and implement POC Reason for Consult: Disposition planning. Therapy - weakness in bed. Does patient have active BEDREST order?: No Is patient medically & hemodynamically stable?: Yes 03/29/18 07:30 Consult to Dialysis [CONS] ONCE Discharging clinician: Jeffy Hickman Anticipated date of discharge: 03/29/18 - Constitutional Vitals: Temp Pulse Resp BP Pulse Ox 97.3 F L 81 18 141/81 97 03/29/18 12:45 03/29/18 07:21 03/29/18 12:45 03/29/18 12:45 03/29/18 07:51 General appearance: Present: cooperative, mild distress, A&O X 3, pleasant, answers questions appropriately Exam: . - Respiratory Respiratory exam: Present: prolonged expiratory phase, rhonchi, wheezes. Absent: accessory muscle use, rales - Cardiovascular Cardiovascular exam: Present: RRR, +S1, +S2. Absent: diastolic murmur, gallop, rubs, systolic murmur - GI/Abdominal GI/Abdominal exam: Present: normal bowel sounds, soft, no peritoneal signs. Absent: distended, tenderness - Extremities Exam Extremities exam: Present: warm, radial pulses palpable and symmetrical. Absent: calf tenderness, cyanotic, pedal edema - Neurological Exam Neurological exam: Present: CN II-XII intact, oriented X3, no focal deficits. Absent: facial droop, speech deficit - Skin Skin exam: Present: dry, intact - Patient Status Disposition: Home, Self-Care Condition: Fair Functional capacity at discharge: uses cane/walker Overall status at discharge: patient is progressing back to baseline - Discharge Instructions Instructions: Heart Failure (DC), Acute Respiratory Distress Syndrome (DC), Chronic Obstructive Pulmonary Disease (DC), Pneumonia (DC) Follow Up With: Antonio Mancia MD [Partnered Physician] - (2 weeks) NONE,PCP [Primary Care Provider] - (in 1-2 weeks) Paul Slater MD [Partnered Physician] - (in 6 months for AAA) - Diet and Activity Activity: increase activity as tolerated Diet: low fat, low cholesterol, low salt diet - VTE Documentation of Mechanical Device: Intermittent pneumatic compression device
[2018-03-29 16:00] VITALS: BP 136/66
[2018-03-31 12:43] LABS: Myeloperoxidase Ab 0 AU/mL (0-19); Serine Protease-3 Antibody 177 AU/mL (0-19)
== END 2018-03-29 18:15 | disposition home or self-care (01) | DRG 871 ==
LOC: EMEROOARM 09:48 → 2ANU 09:48 → SUATTDRO 03-25 09:09
PROVIDERS: ADMIT Internal Medicine Nephrology; ATTEND Internal Medicine

== ENCOUNTER 2018-04-22 13:11 | Inpatient (IN) ==
[2018-04-22] MEDS ORDERED: Ipratropium/Albuterol Neb 3 ML IH ONE (13:33)
--- NOTE | 2018-04-22 13:48 | Emergency Department Note ---
Addendum entered and electronically signed by Consuelo Ashby DO 04/22/18 19:23: Original Note: Disposition Clinical Impression: Hypoxia Disposition: Admitted As Inpatient Referrals: NONE,PCP [Primary Care Provider] - Forms: ED Satisfaction Letter General Adult HPI - General Chief complaint: ED Shortness of Breath/Dyspnea Stated complaint: Lt Lung Pain Time Seen by Provider: 04/22/18 13:13 Source: patient, EMS Limitations: no limitations - History of Present Illness HPI Narrative: Patient is a 67 year old male with PMH of COPD on 2L NC at home, CHF, CKD on dialysis MWF who presents with increased shortness of breath starting earlier today. Pt reports that he was recently discharged for diagnosis on pneumonia on antibiotics but did not finish the antibiotic course because he felt that it "was not working". Patient states that today he felt increased shortness of breath with associated left sided pleuritic chest pain. Patient denies cough, fever, chills. Patient denies abdominal pain, nausea, vomiting, diarrhea. Patient denies history of DVT/PE. Pain Scale: 9 - Related Data Home Medications Medication Instructions Recorded Confirmed RX: Albuterol Sulfate [Ventolin 2 puff IH Q4H 08/31/17 03/24/18 Hfa] RX: Metoprolol [Lopressor] 25 mg PO BID 08/31/17 03/27/18 RX: Aspirin [Adult Aspirin] 81 mg PO DAILY 03/24/18 03/24/18 RX: Budesonide [Pulmicort 2 puff IH BID 03/24/18 03/24/18 Flexhaler 180mcg] RX: Calcium Carbonate 1,300 mg PO DAILY 03/24/18 03/24/18 RX: Cholecalciferol (D-3) [Vitamin 1,000 unit PO DAILY 03/24/18 03/24/18 D] RX: Folic Acid/Vit B Complex and C 1 tab PO DAILY 03/24/18 03/24/18 [Dialyvite Tablet] RX: Sevelamer [Renvela] 1,600 mg PO TID 03/24/18 03/24/18 RX: Tiotropium [Spiriva] 1 puff IH DAILY 03/24/18 03/24/18 Previous Rx's Medication Instructions Recorded RX: GuaiFENesin ER [Mucinex] 600 mg PO BID #60 tbbp.12hr 03/29/18 Allergies Allergy/AdvReac Type Severity Reaction Status Date / Time Amoxicillin Allergy Rash Verified 03/10/18 13:35 Penicillins AdvReac Hives Verified 08/31/17 01:38 Constitutional: Denies: fever, chills Eyes: Denies: eye pain, vision change ENT ED: Denies: throat pain, congestion Cardiovascular: Reports: chest pain (left sided pleuritic chest pain), dyspnea on exertion, orthopnea. Denies: edema, syncope Respiratory: Reports: dyspnea. Denies: cough, wheezes Gastrointestinal: Denies: abdominal pain, nausea, vomiting, diarrhea Genitourinary: Denies: dysuria, hematuria Musculoskeletal: Denies: back pain, neck pain Integumentary: Denies: rash, abrasion Neurological: Denies: headache, weakness, numbness Past Medical History - Past Medical History Medical history: Reports: cancer, CHF, COPD, dialysis, hypertension, renal disease Psychiatric history: Reports: no psych history - Social History Smoking Status: Former smoker Smokeless Tobacco Status: Yes Alcohol use: Reports: none Drug use: Reports: none Physical Exam - General Limitations: no limitations General appearance: alert, in no apparent distress - Head Head exam: atraumatic, normocephalic, normal inspection - Eye Eye exam: Present: normal appearance, PERRL, EOMI - ENT ENT exam: normal exam, normal oropharynx, mucous membranes moist - Neck Neck exam: Present: full ROM. Absent: tenderness - Chest Chest inspection: Present: normal inspection, symmetric chest wall rise, other (dialysis catheter present on Right anterior chest wall, no signs of infection) - Respiratory Respiratory exam: Present: wheezes, other (mild crackles throughout, diminished breath sounds throughout) - Cardiovascular Cardiovascular exam: Present: regular rate, normal rhythm, normal heart sounds - Abdominal Exam Abdominal exam: Present: soft, Non-Tender. Absent: tenderness, distention, guarding, rebound, rigidity - Extremities Exam Extremities exam: Present: normal inspection, full ROM, normal capillary refill. Absent: tenderness, pedal edema - Expanded Lower Extremity Exam Neurovascular/Tendon exam: Present: normal capillary refill. Absent: pulse deficit, motor deficit, sensory deficit - Back Exam Back exam: Present: normal inspection, full ROM. Absent: tenderness, CVA tenderness (R), CVA tenderness (L) - Neurological Exam Neurological exam: Present: alert, oriented X3 - Psychiatric Psychiatric exam: Present: normal affect, normal mood - Skin Skin exam: Present: warm, dry, intact Course Vital Signs Temperature 97.0 F L 04/22/18 13:13 Pulse Rate 91 04/22/18 13:13 Respiratory Rate 20 04/22/18 13:13 Blood Pressure 140/69 04/22/18 13:13 O2 Sat by Pulse Oximetry 93 04/22/18 13:13 Temperature 97.0 F L 04/22/18 13:13 Pulse Rate 91 04/22/18 13:13 Respiratory Rate 20 04/22/18 13:13 Blood Pressure 140/69 04/22/18 13:13 O2 Sat by Pulse Oximetry 95 04/22/18 13:19 Oxygen Delivery Oxygen Delivery Nasal Cannula Medical Decision Making - Lab Data Result diagrams: 04/22/18 14:38 04/22/18 14:38
[2018-04-22 14:54] LABS: Basophils # 0.1 K/mcL (0.0-0.2); Basophils % 0.6 %; Eosinophils # 0.4 K/mcL (0.0-0.6); Eosinophils % 4.6 %; Hemoglobin 11.8 g/dL (12.9-16.9); Immature Granulocytes % 0.5 % (0-4); Lymphocytes # 0.7 K/mcL (0.6-4.6); Lymphocytes % 8.5 %; Mean Corpuscular HGB Conc 28.8 g/dL (31.6-35.5); Mean Corpuscular Hemoglobin 27.6 pg (28.0-33.3); Mean Platelet Volume 9.5 fL (9.4-12.4); Monocytes # 0.7 K/mcL (0.0-1.3); Monocytes % 9.1 %; Platelet Count 215 K/mcL (140-400); Red Blood Count 4.27 M/mcL (4.19-5.50); Red Cell Distribution Width 19.4 % (11.5-14.5); Segmented Neutrophils % 76.7 %
[2018-04-22 14:55] LABS: Neutrophils # 6.1 K/mcL (1.6-8.9)
[2018-04-22 15:01] LABS: INR 1.3; Prothrombin Time 14.2 Seconds (9.4-12.1)
[2018-04-22 15:04] LABS: Activated Partial Thrombo Time 33.3 Seconds (26.0-36.0)
[2018-04-22 15:20] LABS: Troponin I 0.21 ng/mL (< 0.04)
[2018-04-22 15:26] LABS: Anisocytosis 1+ (Not Present); Hypochromasia Present (Not Present); Macrocytosis Present (Not Present); Microcytosis Present (Not Present); Platelet Estimate Slight Decrease (Normal)
[2018-04-22 15:33] LABS: Calcium 8.7 mg/dL (8.6-10.3)
[2018-04-22] MEDS ORDERED: Levofloxacin 500 MG/100 ML 500 MG/100 ML BAG IVPB ONE (16:09)
--- NOTE | 2018-04-22 16:10 | Emergency Department Note ---
Disposition Clinical Impression: Hypoxia, Pneumonia Disposition: Admitted As Inpatient Condition: Good Referrals: NONE,PCP [Primary Care Provider] - Forms: ED Satisfaction Letter Time of Disposition: 19:17 General Adult HPI - General Chief complaint: ED Shortness of Breath/Dyspnea Stated complaint: Lt Lung Pain Time Seen by Provider: 04/22/18 13:13 Source: patient, EMS Limitations: no limitations Nursing Notes Reviewed: Yes Vital Signs Reviewed: Yes - History of Present Illness HPI Narrative: I have reperformed and reviewed the history documented by the medical student, and I confirm its accuracy except as noted below. Pain Scale: 9 - Related Data Home Medications Medication Instructions Recorded Confirmed Albuterol Sulfate [Ventolin Hfa] 2 puff IH Q4H 08/31/17 03/24/18 Metoprolol [Lopressor] 25 mg PO BID 08/31/17 03/27/18 Aspirin [Adult Aspirin] 81 mg PO DAILY 03/24/18 03/24/18 Budesonide [Pulmicort Flexhaler 2 puff IH BID 03/24/18 03/24/18 180mcg] Calcium Carbonate 1,300 mg PO DAILY 03/24/18 03/24/18 Cholecalciferol (D-3) [Vitamin D] 1,000 unit PO DAILY 03/24/18 03/24/18 Folic Acid/Vit B Complex and C 1 tab PO DAILY 03/24/18 03/24/18 [Dialyvite Tablet] Sevelamer [Renvela] 1,600 mg PO TID 03/24/18 03/24/18 Tiotropium [Spiriva] 1 puff IH DAILY 03/24/18 03/24/18 Previous Rx's Medication Instructions Recorded GuaiFENesin ER [Mucinex] 600 mg PO BID #60 tbbp.12hr 03/29/18 Allergies Allergy/AdvReac Type Severity Reaction Status Date / Time Amoxicillin Allergy Rash Verified 03/10/18 13:35 Penicillins AdvReac Hives Verified 08/31/17 01:38 All systems ED: reviewed and negative except as stated. Review of Systems: As Per HPI Constitutional: Denies: fever, chills Eyes: Denies: eye pain, vision change ENT ED: Denies: throat pain, congestion Cardiovascular: Reports: chest pain (left sided pleuritic chest pain), dyspnea on exertion, orthopnea. Denies: edema, syncope Respiratory: Reports: dyspnea. Denies: cough, wheezes Gastrointestinal: Denies: abdominal pain, nausea, vomiting, diarrhea Genitourinary: Denies: dysuria, hematuria Musculoskeletal: Denies: back pain, neck pain Integumentary: Denies: rash, abrasion Neurological: Denies: headache, weakness, numbness Past Medical History - Past Medical History Attestation: Yes The following information was validated with the patient. Source: patient Medical history: Reports: cancer, CHF, COPD, dialysis, hypertension, renal disease Psychiatric history: Reports: no psych history - Social History Smoking Status: Former smoker Smokeless Tobacco Status: Yes Alcohol use: Reports: none Drug use: Reports: none Physical Exam - General Limitations: no limitations General appearance: alert, other (Patient is conversationally dyspneic.) - Head Head exam: atraumatic, normocephalic, normal inspection - Eye Eye exam: Present: normal appearance, PERRL, EOMI - ENT ENT exam: normal exam, normal oropharynx, mucous membranes moist - Neck Neck exam: Present: normal inspection, full ROM, trachea midline - Chest Chest inspection: Present: normal inspection, symmetric chest wall rise - Respiratory Respiratory exam: Present: respiratory distress (Mildly conversationally dyspneic.), accessory muscle use (Mild retractions subcostal.), prolonged ex piratory phase, other (Diminished lung sounds in the bases some crackles throughout.) - Cardiovascular Cardiovascular exam: Present: regular rate, normal rhythm, normal heart sounds - Abdominal Exam Abdominal exam: Present: soft, Non-Tender. Absent: tenderness, distention, guarding, rebound, rigidity, organomegaly, Arredondo's sign, Rovsing's sign, tenderness at McBurney's Point - Extremities Exam Extremities exam: Present: normal inspection, full ROM, normal capillary refill. Absent: tenderness, pedal edema - Back Exam Back exam: Present: normal inspection, full ROM. Absent: tenderness - Neurological Exam Neurological exam: Present: alert, oriented X3 - Psychiatric Psychiatric exam: Present: normal affect, normal mood - Skin Skin exam: Present: warm, dry, intact, normal color. Absent: rash, cyanosis, diaphoresis Course Course Narrative: No patient is mildly conversationally dyspneic. He does have worsening of airspace disease on chest x-ray. He states that he did not finish his antibiotic course that he had previously. We will place patient on Levaquin at this time. States he has been having to increase his oxygen at home because of feeling like he is more short of breath. He did have some crackles throughout his both lung norris. We did provide patient with a triple DuoNeb. Patient does undergo hemodialysis. His any doctors are in [place]. Patient describes his chest pain as worse whenever taking deep breath. He describes as the left side of his chest. He reports he has never had a PE or DVT before. - Reevaluation(s) Reevaluation #1: Patient's d-dimer is markedly elevated to 13,000. There is concern for pulmonary embolism patient did have dialysis yesterday. He does not have scheduled dialysis again until Tuesday. We will pursue a V/Q scan at this time. Reevaluation #2: We will admit patient to the hospital for the pulmonary edema as well as pneumonia. Patient's VQ scan was low probability for PE. Time: 19:17 Vital Signs Temperature 97.0 F L 04/22/18 13:13 Pulse Rate 91 04/22/18 13:13 Respiratory Rate 20 04/22/18 13:13 Blood Pressure 140/69 04/22/18 13:13 O2 Sat by Pulse Oximetry 93 04/22/18 13:13 Temperature 97.0 F L 04/22/18 13:13 Pulse Rate 103 04/22/18 18:48 Respiratory Rate 20 04/22/18 18:48 Blood Pressure 106/57 04/22/18 18:48 O2 Sat by Pulse Oximetry 93 04/22/18 18:48 Oxygen Delivery Oxygen Delivery Nasal Cannula Medical Decision Making - Medical Records Medical records reviewed: Yes I reviewed the patient's medical records. - Lab Data Lab results reviewed: Yes I reviewed the patient's lab results. Result diagrams: 04/22/18 14:38 04/22/18 14:38 Lab Results 04/22/18 04/22/18 04/22/18 Range/Units 14:38 14:38 14:38 WBC 7.9 (4.3-11.1) K/mcL RBC 4.27 (4.19-5.50) M/mcL Hgb 11.8 L (12.9-16.9) g/dL Hct 41.0 (37.5-50.1) % MCV 96.0 (83.0-100.0) fL MCH 27.6 L (28.0-33.3) pg MCHC 28.8 L (31.6-35.5) g/dL RDW 19.4 H (11.5-14.5) % Plt Count 215 (140-400) K/mcL MPV 9.5 (9.4-12.4) fL Immature Gran % 0.5 (0-4) % Seg Neutrophils % 76.7 % Lymphocytes % 8.5 % Monocytes % 9.1 % Eosinophils % 4.6 % Basophils % 0.6 % Neutrophils # 6.1 (1.6-8.9) K/mcL Lymphocytes # 0.7 (0.6-4.6) K/mcL Monocytes # 0.7 (0.0-1.3) K/mcL Eosinophils # 0.4 (0.0-0.6) K/mcL Basophils # 0.1 (0.0-0.2) K/mcL Platelet Estimate Slight Decrease L (Normal) Hypochromasia Present A (Not Present) Anisocytosis 1+ A (Not Present) Microcytosis Present A (Not Present) Macrocytosis Present A (Not Present) PT 14.2 H (9.4-12.1) Seconds INR 1.3 APTT 33.3 (26.0-36.0) Seconds D-Dimer 68144 H (0-500) ng/mLFEU Sodium 138 (136-145) mEq/L Potassium 5.0 (3.5-5.1) mEq/L Chloride 102 (98-107) mEq/L Carbon Dioxide 20 L (23-29) mEq/L BUN 52 H (8-23) mg/dL Creatinine 7.88 H (0.70-1.30) mg/dL Est GFR ( Amer) 8 L (> 60) Est GFR (Non-Af Amer) 7 L (> 60) BUN/Creatinine Ratio 7 (6-26) Glucose 109 H (70-105) mg/dL Calculated Osmolality 301 H (280-300) Lactic Acid (0.5-2.2) mmol/L Calcium 8.7 (8.6-10.3) mg/dL Troponin I 0.21 H* (< 0.04) ng/mL B-Natriuretic Peptide (Less than 100) pg/mL 04/22/18 04/22/18 04/22/18 Range/Units 14:38 14:38 16:09 WBC (4.3-11.1) K/mcL RBC (4.19-5.50) M/mcL Hgb (12.9-16.9) g/dL Hct (37.5-50.1) % MCV (83.0-100.0) fL MCH (28.0-33.3) pg MCHC (31.6-35.5) g/dL RDW (11.5-14.5) % Plt Count (140-400) K/mcL MPV (9.4-12.4) fL Immature Gran % (0-4) % Seg Neutrophils % % Lymphocytes % % Monocytes % % Eosinophils % % Basophils % % Neutrophils # (1.6-8.9) K/mcL Lymphocytes # (0.6-4.6) K/mcL Monocytes # (0.0-1.3) K/mcL Eosinophils # (0.0-0.6) K/mcL Basophils # (0.0-0.2) K/mcL Platelet Estimate (Normal) Hypochromasia (Not Present) Anisocytosis (Not Present) Microcytosis (Not Present) Macrocytosis (Not Present) PT (9.4-12.1) Seconds INR APTT (26.0-36.0) Seconds D-Dimer (0-500) ng/mLFEU Sodium (136-145) mEq/L Potassium (3.5-5.1) mEq/L Chloride (98-107) mEq/L Carbon Dioxide (23-29) mEq/L BUN (8-23) mg/dL Creatinine (0.70-1.30) mg/dL Est GFR ( Amer) (> 60) Est GFR (Non-Af Amer) (> 60) BUN/Creatinine Ratio (6-26) Glucose (70-105) mg/dL Calculated Osmolality (280-300) Lactic Acid 1.5 1.9 (0.5-2.2) mmol/L Calcium (8.6-10.3) mg/dL Troponin I (< 0.04) ng/mL B-Natriuretic Peptide 4216 H (Less than 100) pg/mL - Radiology Data Radiology results reviewed: Yes I reviewed the patient's radiology results. Chest X-Ray 04/22/18 13:34 IMPRESSION: 1. Interval increase in the left midlung pulmonary opacity may represent atelectasis, edema, and/or pneumonia. Recommend radiographic follow-up to complete resolution. 2. Interval improvement in left lower lobe pulmonary opacity likely reflects improving left pleural effusion. 3. Persistently enlarged but unchanged cardiomediastinal silhouette. D/ / Mason Avila MD / Mason Avila MD Interpreting Provider: Mason Avila MD - EKG Data EKG #1 EKG attestation: Yes I reviewed and interpreted this EKG. EKG results narrative: Normal sinus rhythm at a rate 83. LA interval is 187. QRS duration is 83. QT is 379. QTC is 446. No signs of acute ischemia. Poor R-wave progression. No significant change from previous EKG dated 03/24/2018.
[2018-04-22] MEDS ORDERED: Furosemide 40 MG/4 ML VIAL IVP ONE ×2 (17:17→22:00)
--- NOTE | 2018-04-22 17:17 | Emergency Department Note ---
Disposition Clinical Impression: Hypoxia Disposition: Admitted As Inpatient Referrals: NONE,PCP [Primary Care Provider] - Forms: ED Satisfaction Letter General Adult HPI - General Chief complaint: ED Shortness of Breath/Dyspnea Stated complaint: Lt Lung Pain Time Seen by Provider: 04/22/18 13:13 Source: patient, EMS Limitations: no limitations - History of Present Illness Pain Scale: 9 - Related Data Home Medications Medication Instructions Recorded Confirmed Albuterol Sulfate [Ventolin Hfa] 2 puff IH Q4H 08/31/17 03/24/18 Metoprolol [Lopressor] 25 mg PO BID 08/31/17 03/27/18 Aspirin [Adult Aspirin] 81 mg PO DAILY 03/24/18 03/24/18 Budesonide [Pulmicort Flexhaler 2 puff IH BID 03/24/18 03/24/18 180mcg] Calcium Carbonate 1,300 mg PO DAILY 03/24/18 03/24/18 Cholecalciferol (D-3) [Vitamin D] 1,000 unit PO DAILY 03/24/18 03/24/18 Folic Acid/Vit B Complex and C 1 tab PO DAILY 03/24/18 03/24/18 [Dialyvite Tablet] Sevelamer [Renvela] 1,600 mg PO TID 03/24/18 03/24/18 Tiotropium [Spiriva] 1 puff IH DAILY 03/24/18 03/24/18 Previous Rx's Medication Instructions Recorded GuaiFENesin ER [Mucinex] 600 mg PO BID #60 tbbp.12hr 03/29/18 Allergies Allergy/AdvReac Type Severity Reaction Status Date / Time Amoxicillin Allergy Rash Verified 03/10/18 13:35 Penicillins AdvReac Hives Verified 08/31/17 01:38 Constitutional: Denies: fever, chills Eyes: Denies: eye pain, vision change ENT ED: Denies: throat pain, congestion Cardiovascular: Reports: chest pain (left sided pleuritic chest pain), dyspnea on exertion, orthopnea. Denies: edema, syncope Respiratory: Reports: dyspnea. Denies: cough, wheezes Gastrointestinal: Denies: abdominal pain, nausea, vomiting, diarrhea Genitourinary: Denies: dysuria, hematuria Musculoskeletal: Denies: back pain, neck pain Integumentary: Denies: rash, abrasion Neurological: Denies: headache, weakness, numbness Past Medical History - Past Medical History Medical history: Reports: cancer, CHF, COPD, dialysis, hypertension, renal disease Psychiatric history: Reports: no psych history - Social History Smoking Status: Former smoker Smokeless Tobacco Status: Yes Alcohol use: Reports: none Drug use: Reports: none Physical Exam - General Limitations: no limitations General appearance: alert, other (Patient is conversationally dyspneic.) Course Vital Signs Temperature 97.0 F L 04/22/18 13:13 Pulse Rate 91 04/22/18 13:13 Respiratory Rate 20 04/22/18 13:13 Blood Pressure 140/69 04/22/18 13:13 O2 Sat by Pulse Oximetry 93 04/22/18 13:13 Temperature 97.0 F L 04/22/18 13:13 Pulse Rate 112 04/22/18 16:21 Respiratory Rate 20 04/22/18 16:21 Blood Pressure 151/66 04/22/18 16:21 O2 Sat by Pulse Oximetry 96 04/22/18 16:21 Oxygen Delivery Oxygen Delivery Nasal Cannula Medical Decision Making - Lab Data Result diagrams: 04/22/18 14:38 04/22/18 14:38 Lab Results 04/22/18 04/22/18 04/22/18 Range/Units 14:38 14:38 14:38 WBC 7.9 (4.3-11.1) K/mcL RBC 4.27 (4.19-5.50) M/mcL Hgb 11.8 L (12.9-16.9) g/dL Hct 41.0 (37.5-50.1) % MCV 96.0 (83.0-100.0) fL MCH 27.6 L (28.0-33.3) pg MCHC 28.8 L (31.6-35.5) g/dL RDW 19.4 H (11.5-14.5) % Plt Count 215 (140-400) K/mcL MPV 9.5 (9.4-12.4) fL Immature Gran % 0.5 (0-4) % Seg Neutrophils % 76.7 % Lymphocytes % 8.5 % Monocytes % 9.1 % Eosinophils % 4.6 % Basophils % 0.6 % Neutrophils # 6.1 (1.6-8.9) K/mcL Lymphocytes # 0.7 (0.6-4.6) K/mcL Monocytes # 0.7 (0.0-1.3) K/mcL Eosinophils # 0.4 (0.0-0.6) K/mcL Basophils # 0.1 (0.0-0.2) K/mcL Platelet Estimate Slight Decrease L (Normal) Hypochromasia Present A (Not Present) Anisocytosis 1+ A (Not Present) Microcytosis Present A (Not Present) Macrocytosis Present A (Not Present) PT 14.2 H (9.4-12.1) Seconds INR 1.3 APTT 33.3 (26.0-36.0) Seconds D-Dimer 38900 H (0-500) ng/mLFEU Sodium 138 (136-145) mEq/L Potassium 5.0 (3.5-5.1) mEq/L Chloride 102 (98-107) mEq/L Carbon Dioxide 20 L (23-29) mEq/L BUN 52 H (8-23) mg/dL Creatinine 7.88 H (0.70-1.30) mg/dL Est GFR ( Amer) 8 L (> 60) Est GFR (Non-Af Amer) 7 L (> 60) BUN/Creatinine Ratio 7 (6-26) Glucose 109 H (70-105) mg/dL Calculated Osmolality 301 H (280-300) Lactic Acid (0.5-2.2) mmol/L Calcium 8.7 (8.6-10.3) mg/dL Troponin I 0.21 H* (< 0.04) ng/mL B-Natriuretic Peptide (Less than 100) pg/mL 04/22/18 04/22/18 04/22/18 Range/Units 14:38 14:38 16:09 WBC (4.3-11.1) K/mcL RBC (4.19-5.50) M/mcL Hgb (12.9-16.9) g/dL Hct (37.5-50.1) % MCV (83.0-100.0) fL MCH (28.0-33.3) pg MCHC (31.6-35.5) g/dL RDW (11.5-14.5) % Plt Count (140-400) K/mcL MPV (9.4-12.4) fL Immature Gran % (0-4) % Seg Neutrophils % % Lymphocytes % % Monocytes % % Eosinophils % % Basophils % % Neutrophils # (1.6-8.9) K/mcL Lymphocytes # (0.6-4.6) K/mcL Monocytes # (0.0-1.3) K/mcL Eosinophils # (0.0-0.6) K/mcL Basophils # (0.0-0.2) K/mcL Platelet Estimate (Normal) Hypochromasia (Not Present) Anisocytosis (Not Present) Microcytosis (Not Present) Macrocytosis (Not Present) PT (9.4-12.1) Seconds INR APTT (26.0-36.0) Seconds D-Dimer (0-500) ng/mLFEU Sodium (136-145) mEq/L Potassium (3.5-5.1) mEq/L Chloride (98-107) mEq/L Carbon Dioxide (23-29) mEq/L BUN (8-23) mg/dL Creatinine (0.70-1.30) mg/dL Est GFR ( Amer) (> 60) Est GFR (Non-Af Amer) (> 60) BUN/Creatinine Ratio (6-26) Glucose (70-105) mg/dL Calculated Osmolality (280-300) Lactic Acid 1.5 1.9 (0.5-2.2) mmol/L Calcium (8.6-10.3) mg/dL Troponin I (< 0.04) ng/mL B-Natriuretic Peptide 4216 H (Less than 100) pg/mL Attestation Statement - Attestation Attestation: I examined this patient and my medical decision-making was reviewed with the Resident Physician. I agree with the documented findings, disposition and treatment plan as described except to the extent set forth below. 67 year old male presents to the ED with complaints of LFEt lung pain and is hypoxic with pleuritic chest pain and productive cough. CXR confirms worsening pnemonia althouh he also has a Ddimer of 13K and we will need to rule out PE, although some of it may be contributory from pleural effusions and his histroy fo dialysis need renal failure. We will admit after VQ scan
[2018-04-22] MEDS ORDERED: Isovue-370 500 ML INFUS..BTL IV ONE (20:12)
--- NOTE | 2018-04-22 20:30 | Internal Med History&Physical ---
Date of Encounter: 04/22/18 Time of Encounter: 20:27 Internal Medicine - H&P: HPI Chief complaint: chest pain Admitted From: Home Plans for Post Hospital Care: Home History of present illness: Paul Castillo is a 67-year-old man with multiple comorbidities including end-stage renal disease on hemodialysis M/W/F, COPD, AAA and granulomatosis with polyangiitis who has been hospitalized here on multiple occasions due to hypoxic respiratory failure more recently discharged about 3 weeks ago at which time he was treated for suspected pneumonia in the setting of persistent hypoxia and hemoptysis. He received a 10 day course of levofloxacin and was discharged to home. He says since being at home he has felt lousy and with ongoing difficulty breathing but today felt acute onset abdominal pain that radiated upwards to his precordial area. He denies fever and says that his cough is at baseline and poorly productive. He has not noticed any bloody expectorate and his last bowel movement with blood was months ago he states. In the ER he was tachycardic with a significantly elevated d-dimer, BNP and higher than baseline troponin. His chest x-ray as reviewed by me showed interval improvement of the LLL opacity previously seen likely representing improving left pleural effusion. EKG showed sinus tachycardia. VQ scan showed low probability for PE. He was then started on treatment for HCAP with vancomycin and levofloxacin, now admitted for further care. Past Med Surg Social Fam HX - Past Medical History Medical history: cancer, CHF, COPD, dialysis, hypertension, renal disease Additional medical history: skin cancer, hiatal hernia Psychiatric history: no psych history - Past Surgical History Additional surgical history: dialysis port in L chest - Social History Smoking Status: Former smoker Smokeless Tobacco Status: Yes Alcohol use: none Drug use: none - Family History Mother Hx Family Endocrine Disorder: Yes (DM) Father Living Status: Hx Family Respiratory Disorders: Yes Internal Medicine - H&P: Meds Albuterol Sulfate [Ventolin Hfa] 2 puff IH Q4H 08/31/17 [History] Metoprolol [Lopressor] 25 mg PO BID 08/31/17 [History] Aspirin [Adult Aspirin] 81 mg PO DAILY 03/24/18 [History] Budesonide [Pulmicort Flexhaler 180mcg] 2 puff IH BID 03/24/18 [History] Calcium Carbonate 1,300 mg PO DAILY 03/24/18 [History] Cholecalciferol (D-3) [Vitamin D] 1,000 unit PO DAILY 03/24/18 [History] Folic Acid/Vit B Complex and C [Dialyvite Tablet] 1 tab PO DAILY 03/24/18 [History] Sevelamer [Renvela] 1,600 mg PO TID 03/24/18 [History] Tiotropium [Spiriva] 1 puff IH DAILY 03/24/18 [History] GuaiFENesin ER [Mucinex] 600 mg PO BID #60 tbbp.12hr 03/29/18 [Rx] Allergy/AdvReac Type Severity Reaction Status Date / Time Amoxicillin Allergy Rash Verified 03/10/18 13:35 Penicillins AdvReac Hives Verified 08/31/17 01:38 All Systems PM: A 10-system review of systems was performed and is negative for pertinent findings except as documented above in the HPI. - Constitutional Vitals: Temp Pulse Resp BP Pulse Ox 97.0 F L 99 18 113/65 92 04/22/18 13:13 04/22/18 20:27 04/22/18 20:27 04/22/18 20:27 04/22/18 20:27 Exam: Vitals: Reviewed General: Obese white man lying in bed in NAD Skin: Multiple excoriations, friable skin. HEENT: Moist mucous membranes. Mild conjunctivae pallor. Neck: No lymphadenopathy. No JVD. Chest: Diminished thoracic expansion. Reduced breath sounds bilaterally. Permacath on right chest wall. Heart: Normal S1 & S2; rhythmic. No rubs or murmurs. Abdomen: Distended, soft and non-tender to palpation. No peritoneal reaction. Extremities: No clubbing, cyanosis. 1+ pedal edema. No calf tenderness. Graft on left forearm with palpable thrill. Neurological: Awake, alert and oriented to person, place and time. No focal deficits. Psych: Affect appropriate. Internal Med - H&P Results - Labs CBC & Chem 7: 04/22/18 14:38 04/22/18 14:38 Labs: Short CBC 04/22/18 Range/Units 14:38 WBC 7.9 (4.3-11.1) K/mcL Hgb 11.8 L (12.9-16.9) g/dL Hct 41.0 (37.5-50.1) % Plt Count 215 (140-400) K/mcL Neutrophils # 6.1 (1.6-8.9) K/mcL BMP 04/22/18 14:38 Sodium 138 Potassium 5.0 Chloride 102 Carbon Dioxide 20 L BUN 52 H Creatinine 7.88 H Glucose 109 H Calcium 8.7 Cardiac Enzymes 04/22/18 Range/Units 14:38 Troponin I 0.21 H* (< 0.04) ng/mL - Impressions ITS Impressions Chest X-Ray 04/22/18 13:34 IMPRESSION: 1. Interval increase in the left midlung pulmonary opacity may represent atelectasis, edema, and/or pneumonia. Recommend radiographic follow-up to complete resolution. 2. Interval improvement in left lower lobe pulmonary opacity likely reflects improving left pleural effusion. 3. Persistently enlarged but unchanged cardiomediastinal silhouette. D/ / Mason Avila MD / Mason Avila MD Interpreting Provider: Mason Avila MD Pulmonary Perfusion Imaging 04/22/18 16:49 IMPRESSION: Low probability for pulmonary embolism. D/ / Travis Quezada MD / Travis Quezada MD Interpreting Provider: Travis Quezada MD - Assessment and plan (1) Chest pain Current Visit: Yes Status: Acute Assessment and plan: The patient's chest pain is concerning given his prior history and underlying risk factors. It would be prudent to rule out a pulmonary embolism with a dedicated CTA as well as ensure there is no issue with his aneurysm as he feels the pain stems from his abdomen upwards into his chest. The patient is already on dialysis and therefore won't change his management. Will monitor on tel emetry, check trend of troponins, monitor for pain recurrence. Loading dose ASA received. Qualifiers: Chest pain type: unspecified Qualified Code(s): R07.9 - Chest pain, unspecified (2) Respiratory failure Current Visit: Yes Status: Acute Assessment and plan: The patient seems to be a bit more fluid overloaded than normal in spite of r eceiving dialysis yesterday. Will administer high dose furosemide as he still makes some urine. It is likely multifactorial in the setting of heart failure, COPD and connective tissue disease affecting his lungs. Will continue supplemental oxygen, nebulizer therapy. Low concern for pneumonia given his recent treatment course and the acuity of his symptoms starting only today. No leukocytosis, x-ray seems better than previous. Blood cultures have been ordered and he was received loading doses of antibiotics which should be sufficient for the next 24-48hrs given his ESRD state pending further evolution of his clinical state. For now, will not continue until his clinical status warrants. Qualifiers: Chronicity: acute on chronic Respiratory failure complication: hypoxia Qualified Code(s): J96.21 - Acute and chronic respiratory failure with hypoxia (3) Troponin level elevated Current Visit: Yes Status: Acute Assessment and plan: Possibly associated with ESRD however it appears higher than his baseline. Given the concomitance with pain, need to continue to monitor. Rule out ACS/PE. He does have a AAA and history of GI bleed and hemoptysis therefore anticoagulation in him is tricky. We discussed this and he expressed understanding. Will trend for now. (4) AAA (abdominal aortic aneurysm) Current Visit: Yes Status: Chronic Assessment and plan: Appears stable. Will get a CT for re-assessment given the acute abdominal pain reported. Qualifiers: Presence of rupture: without rupture Qualified Code(s): I71.4 - Abdominal aortic aneurysm, without rupture (5) Anemia Current Visit: Yes Status: Chronic Assessment and plan: Chronic; stable. AOCD. Qualifiers: Anemia type: due to chronic kidney disease Chronic kidney disease stage: on chronic dialysis Qualified Code(s): N18.6 - End stage renal disease; D63.1 - Anemia in chronic kidney disease; Z99.2 - Dependence on renal dialysis (6) COPD (chronic obstructive pulmonary disease) with chronic bronchitis Current Visit: Yes Status: Chronic Assessment and plan: Will place on KISHAN prn and LABA/ICS. (7) ESRD (end stage renal disease) on dialysis Current Visit: Yes Status: Chronic Assessment and plan: Nephrology consult placed for dialysis scheduling. Monitor electrolytes closely. (8) Obesity (BMI 30-39.9) Current Visit: Yes Status: Chronic Assessment and plan: Weight loss advised. (9) Shiloh's granulomatosis (granulomatosis with polyangiitis) Current Visit: Yes Status: Chronic Assessment and plan: Appears stable. Not on steroids or immunomodulators at this time. - Time Spent With Patient Total time spent is greater than 50% in coordination of care (as documented) at patient's floor/unit and/or counseling patient: Greater than 35 minutes
[2018-04-22] MEDS ORDERED: BUDESONIDE IH SCH (21:00)
[2018-04-22] MEDS ORDERED: Nitroglycerin 0.4 MG TAB.SUBL SL PRN (21:37)
[2018-04-22] MEDS: Albuterol 2.5 MG/3 ML NEBULIZER IH SCH (22:10)
[2018-04-22] MEDS: Beclomethasone 80mcg MDI IH SCH (22:10)
[2018-04-22] MEDS ORDERED: traMADol 50 MG TABLET PO ONE (22:58)
[2018-04-23] MEDS ORDERED: traMADol 50 MG TABLET PO ONE (02:30)
[2018-04-23] MEDS ORDERED: *HR* HYDROmorphone 2 MG TABLET PO ONE (03:03)
[2018-04-23] MEDS: Albuterol 2.5 MG/3 ML NEBULIZER IH SCH ×4 (03:53→22:32)
[2018-04-23 04:26] LABS: Basophils % 0.3 %; Eosinophils % 0.4 %; Hematocrit 33.5 % (37.5-50.1); Immature Granulocytes % 0.6 % (0-4); Lymphocytes # 0.5 K/mcL (0.6-4.6); Mean Corpuscular HGB Conc 29.3 g/dL (31.6-35.5); Mean Corpuscular Hemoglobin 27.3 pg (28.0-33.3); Mean Corpuscular Volume 93.3 fL (83.0-100.0); Mean Platelet Volume 9.4 fL (9.4-12.4); Monocytes % 12.8 %; Neutrophils # 6.3 K/mcL (1.6-8.9); Platelet Count 214 K/mcL (140-400); Red Blood Count 3.59 M/mcL (4.19-5.50); Red Cell Distribution Width 18.6 % (11.5-14.5); Segmented Neutrophils % 79.9 %
[2018-04-23 04:28] LABS: Hemoglobin 9.8 g/dL (12.9-16.9)
[2018-04-23 04:48] LABS: Calcium 8.2 mg/dL (8.6-10.3); Magnesium 1.8 mg/dL (1.6-2.6); Phosphorous 7.9 mg/dL (2.7-4.5); Potassium 5.7 mEq/L (3.5-5.1)
[2018-04-23 04:53] LABS: Troponin I 0.25 ng/mL (< 0.04)
[2018-04-23] MEDS ORDERED: *HR* Metoprolol 5 MG/5 ML VIAL IVP ONE (04:56)
--- NOTE | 2018-04-23 06:07 | Event Note ---
Date of Encounter: 04/23/18 Time of Encounter: 05:59 The patient was re-assessed. He has complained of 9/10 pain in his left hemiabdomen and left chest since coming in for admission even though he is seen resting comfortably in bed or when woken up from sleep. It has been rebellious to doses of tramadol, hydromorphone and nitroglycerin; secondarily leading to a steady decrease in the patient's blood pressures. He also developed a transient episode of atrial fibrillation in the 110s, receiving 2.5mg of metoprolol and later on reverting to NSR in the 70s. His serum troponin has steadily increased but not dramatically. Will consult cardiology for assistance given his comorbidities. His repeat serum K is 5.7. No concerning electrocardiographic changes necessitating calcium are noted. Will order 1 dose of kayexalate in the interim pending dialysis scheduling. He has been on albuterol all night and received 80mg of furosemide without diuresis.
--- NOTE | 2018-04-23 08:19 | Nephrology Consult Note ---
Date of Encounter: 04/23/18 Time of Encounter: 08:18 Assessment and Plan (1) ESRD (end stage renal disease) on dialysis Current Visit: Yes Status: Chronic HD MWF. Renal vitamins. Renal dose medications. Renal diet. Additional dialysis and ultrafiltration as needed. I spoke with Dr. Holland who reported a rising potassium to 6.2. As his potassium is risen significantly overnight (5.0 to 6.2) I will order hemodialysis today. He may need another dialysis session tomorrow as well. low potassium diet is recommended. (2) COPD (chronic obstructive pulmonary disease) with chronic bronchitis Current Visit: Yes Status: Chronic Per primary team and pulmonary (3) Shiloh's granulomatosis (granulomatosis with polyangiitis) Current Visit: Yes Status: Chronic Outpatient management. (4) Acute and chronic respiratory failure Current Visit: No Status: Acute Per primary team and pulmonary. Will remove fluid with dialysis and plan for another HD session Tuesday. Qualifiers: Respiratory failure complication: hypoxia Qualified Code(s): J96.21 - Acute and chronic respiratory failure with hypoxia History of Present Illness - Reason for Consult Consult date: 04/23/18 end stage renal disease - Chief Complaint esrd - History of Present Illness Mr. Castillo is a 67-year-old gentleman with end-stage renal disease who dialyzes on a Tuesday schedule via a left forearm fistula or a right IJ tunneled hemodialysis catheter who presents for the evaluation of dyspnea. Patient reports he has been adherent to his hemodialysis schedule. Nephrology was consulted for ongoing HD management. Past Med Surg Social Fam HX - Past Medical History Medical history: cancer, CHF, COPD, dialysis, hypertension, renal disease Additional medical history: skin cancer, hiatal hernia Psychiatric history: no psych history - Past Surgical History Additional surgical history: dialysis port in L chest - Social History Smoking Status: Former smoker Smokeless Tobacco Status: Yes Alcohol use: none Drug use: none - Family History Mother Hx Family Endocrine Disorder: Yes (DM) Father Living Status: Hx Family Respiratory Disorders: Yes Medications and Allergies Metoprolol [Lopressor] 25 mg PO BID 08/31/17 [History] Aspirin [Adult Aspirin] 81 mg PO DAILY 03/24/18 [History] Budesonide [Pulmicort Flexhaler 180mcg] 2 puff IH BID 03/24/18 [History] Calcium Carbonate 1,300 mg PO DAILY 03/24/18 [History] Cholecalciferol (D-3) [Vitamin D] 1,000 unit PO DAILY 03/24/18 [History] Folic Acid/Vit B Complex and C [Dialyvite Tablet] 1 tab PO DAILY 03/24/18 [History] Sevelamer [Renvela] 1,600 mg PO TID 03/24/18 [History] Tiotropium [Spiriva] 1 puff IH DAILY 03/24/18 [History] GuaiFENesin ER [Mucinex] 600 mg PO BID #60 tbbp.12hr 03/29/18 [Rx] Allergy/AdvReac Type Severity Reaction Status Date / Time Amoxicillin Allergy Rash Verified 03/10/18 13:35 Penicillins AdvReac Hives Verified 08/31/17 01:38 Review of Systems All Systems: reviewed and no additional remarkable complaints except as stated (as documented in the HPI.) Exam - Vital Signs Vital signs: Initial Vital Signs Temp Pulse Resp BP Pulse Ox 97.0 F L 91 20 140/69 93 04/22/18 13:13 04/22/18 13:13 04/22/18 13:13 04/22/18 13:13 04/22/18 13:13 Vital Signs - Last 8 Hours Temp Pulse Resp BP Pulse Ox 04/23/18 07:16 98.5 F 78 18 88/43 94 04/23/18 04:29 98.4 F 93 18 100/52 95 04/23/18 03:54 20 96 Intake and Output 04/22/18 04/23/18 04/23/18 23:59 07:59 15:59 Intake Total 100 / 100 Balance 100 / 100 Intake: IV Fluids 100 / 100 Levaquin Premix 500mg/100mL 500 100 / 100 mg In 100 ml @ 100 mls/hr IVPB ONCE ONE Rx#:[id number] - General Appearance General appearance: well-developed, well-nourished EENT: ATNC Neck: supple Respiratory: course breath sounds, rhonchi Cardiology: edema, regular rate, regular rhythm - Dialysis Access Dialysis Vascular Access: Arteriovenous Fistula (Patient also has a right IJ tunneled catheter.) thrill: Yes bruit: Yes Gastrointestinal: obese Integumentary: warm and dry Neurologic: alert and oriented x3 Musculoskeletal: no cyanosis Psychiatric: mood/affect appropriate Results - Lab Results 04/23/18 12:34 04/23/18 10:36 Most recent lab results Calcium 8.2 mg/dL (8.6-10.3) L 04/23/18 03:28 Phosphorus 7.9 mg/dL (2.7-4.5) H 04/23/18 03:28 Magnesium 1.8 mg/dL (1.6-2.6) 04/23/18 03:28 Consult Discharge Plan - Plan Referrals: NONE,PCP [Primary Care Provider] -
[2018-04-23] MEDS: Cholecalciferol (D-3) 1,000 UNIT TABLET PO SCH (08:36)
[2018-04-23] MEDS: Aspirin Enteric Coated 81 MG Tablet PO SCH (08:36)
[2018-04-23] MEDS ORDERED: Multivit/Ca/Min/Fe/FA 1 TAB TABLET PO SCH (09:00)
--- NOTE | 2018-04-23 09:31 | Pulmonology Consult Note ---
Addendum entered and electronically signed by Pa Mckeon 04/23/18 19:48: My name was added to the note incorrectly. I have not seen or evaluated the pt at this time. Original Note: Date of Encounter: 04/23/18 Time of Encounter: 09:00 Assessment and Plan (1) Acute and chronic respiratory failure Current Visit: No Status: Acute Patient current presentation is secondary to fluid overload missing dialysis and worsening diastolic heart failure and i dont think he has pneumonia this is symmetric airspace opacity in the CT scan and with bilateral pleural effusion more consistent with pulmonary edema. Patient V/Q mismatch probably better after dialysis his educated on salt water restriction. Pulmonary will sign off please call with any questions or the condition of the patient worsens. Qualifiers: Respiratory failure complication: hypoxia Qualified Code(s): J96.21 - Acute and chronic respiratory failure with hypoxia (2) COPD (chronic obstructive pulmonary disease) with chronic bronchitis Current Visit: Yes Status: Chronic Does not look like he is in COPD exacerbation his presentation is due to fluid overload. To continue bronchodilators as required. (3) Acute on chronic diastolic (congestive) heart failure Current Visit: Yes Status: Acute Worsened by missing dialysis and poor salt water restriction. Fluid management according to dialysis.. To control adequately the preload and afterload. (4) Shiloh's granulomatosis (granulomatosis with polyangiitis) Current Visit: Yes Status: Chronic Patient has serology positive for Shiloh's granulomatosis will need outpatient rheumatology evaluation. (5) ESRD (end stage renal disease) on dialysis Current Visit: Yes Status: Acute Patient current fluid overload situation can be managed by dialysis. History of Present Illness Consult date: 04/23/18 Requesting physician: Esvin Holland Reason for consult: pleural effusion, abnormal CXR/CT Chief complaint: Shortness of breadth History of present illness: 67-year-old male with past medical history significant for morbid obesity, CHF, COPD and my end-stage renal disease Tuesday dialysis had a positive serological test for granulomatous polyangiitis patient was recently treated for hypoxic respiratory failure with possible pneumonia and hemoptysis he went home he was doing well he had a good Thanksgiving had a nice meal during that he missed this dialysis on when Tuesday developed progressive shortness of breath with some cough but denies much sputum production denies any hemoptysis denies any recent sick contacts denies any fever or chills or any other constitutional symptoms denies any GERD symptoms. Patient denies any active neurological symptoms. Past Med Surg Social Fam HX - Past Medical History Medical history: cancer, CHF, COPD, dialysis, hypertension, renal disease Additional medical history: skin cancer, hiatal hernia Psychiatric history: no psych history - Past Surgical History Additional surgical history: dialysis port in L chest - Social History Smoking Status: Former smoker Smokeless Tobacco Status: Yes Alcohol use: none Drug use: none - Family History Mother Hx Family Endocrine Disorder: Yes (DM) Father Living Status: Hx Family Respiratory Disorders: Yes Medications and Allergies Albuterol Sulfate [Ventolin Hfa] 2 puff IH Q4H 08/31/17 [History] Metoprolol [Lopressor] 25 mg PO BID 08/31/17 [History] Aspirin [Adult Aspirin] 81 mg PO DAILY 03/24/18 [History] Budesonide [Pulmicort Flexhaler 180mcg] 2 puff IH BID 03/24/18 [History] Calcium Carbonate 1,300 mg PO DAILY 03/24/18 [History] Cholecalciferol (D-3) [Vitamin D] 1,000 unit PO DAILY 03/24/18 [History] Folic Acid/Vit B Complex and C [Dialyvite Tablet] 1 tab PO DAILY 03/24/18 [History] Sevelamer [Renvela] 1,600 mg PO TID 03/24/18 [History] Tiotropium [Spiriva] 1 puff IH DAILY 03/24/18 [History] GuaiFENesin ER [Mucinex] 600 mg PO BID #60 tbbp.12hr 03/29/18 [Rx] Allergy/AdvReac Type Severity Reaction Status Date / Time Amoxicillin Allergy Rash Verified 03/10/18 13:35 Penicillins AdvReac Hives Verified 08/31/17 01:38 All Systems: The remainder of the systems were reviewed and are negative Physical Examination Vital Signs: Vital Signs, Last 4 Hours Temp Pulse Resp BP Pulse Ox 04/23/18 09:05 82 96/62 04/23/18 08:45 94 04/23/18 07:16 98.5 F 78 18 88/43 94 Auscultation: bilateral: diminished breath sounds (basilar ), rales (minimal scattered rales ) Extremities: edema Results - Laboratory Findings CBC and BMP: 04/23/18 12:34 04/23/18 10:36 PT/INR, D-dimer PT 14.2 Seconds (9.4-12.1) H 04/22/18 14:38 D-Dimer [id number] ng/mLFEU (0-500) H 04/22/18 14:38 Abnormal lab findings: Abnormal lab results RBC 3.59 M/mcL (4.19-5.50) L 04/23/18 03:28 Hgb 9.8 g/dL (12.9-16.9) L D 04/23/18 03:28 Hct 33.5 % (37.5-50.1) L 04/23/18 03:28 MCH 27.3 pg (28.0-33.3) L 04/23/18 03:28 MCHC 29.3 g/dL (31.6-35.5) L 04/23/18 03:28 RDW 18.6 % (11.5-14.5) H 04/23/18 03:28 Lymphocytes # 0.5 K/mcL (0.6-4.6) L 04/23/18 03:28 Platelet Estimate Slight Decrease (Normal) L 04/22/18 14:38 Hypochromasia Present (Not Present) A 04/22/18 14:38 Anisocytosis 1+ (Not Present) A 04/22/18 14:38 Microcytosis Present (Not Present) A 04/22/18 14:38 Macrocytosis Present (Not Present) A 04/22/18 14:38 PT 14.2 Seconds (9.4-12.1) H 04/22/18 14:38 D-Dimer [id number] ng/mLFEU (0-500) H 04/22/18 14:38 Sodium 133 mEq/L (136-145) L 04/23/18 03:28 Potassium 5.7 mEq/L (3.5-5.1) H 04/23/18 03:28 Carbon Dioxide 20 mEq/L (23-29) L 04/23/18 03:28 BUN 57 mg/dL (8-23) H 04/23/18 03:28 Creatinine 8.55 mg/dL (0.70-1.30) H 04/23/18 03:28 Est GFR ( Amer) 8 (> 60) L 04/23/18 03:28 Est GFR (Non-Af Amer) 6 (> 60) L 04/23/18 03:28 Calcium 8.2 mg/dL (8.6-10.3) L 04/23/18 03:28 Phosphorus 7.9 mg/dL (2.7-4.5) H 04/23/18 03:28 Troponin I 0.25 ng/mL (< 0.04) H* 04/23/18 03:28 B-Natriuretic Peptide 4216 pg/mL (Less than 100) H 04/22/18 14:38 - Microbiology Findings Microbiology Findings: Microbiology, Last 48 Hours 04/22/18 19:41 Blood Culture - Preliminary Peripheral Venipuncture Culture is incubating and being continuously monitored for growth. Final report to follow. 04/22/18 16:09 Blood Culture - Preliminary Peripheral Venipuncture Culture is incubating and being continuously monitored for growth. Final report to follow. - Clinical Findings Intake & Output: Intake & Output 04/22/18 04/23/18 04/23/18 23:59 07:59 15:59 Intake Total 100 / 100 360 / 360 Balance 100 / 100 360 / 360 Consult Discharge Plan - Plan Referrals: NONE,PCP [Primary Care Provider] -
--- NOTE | 2018-04-23 10:31 | Internal Med Progress Note ---
Hospitalist Progress Note - Encounter Date of Encounter: 04/23/18 Time of Encounter: 09:45 - Subjective Interval History: H&P reviewed. 67-year-old gentleman with recently diagnosed of granulomatosis polyangiitis (presented with JONATAN and later developed DAH requiring transfer to [facility] for urgent immunosuppresive therapy), ESRD on HD MWF, AAA, COPD, obesity, is admitted for acute on chronic hypoxic respiratory failure. Also complained of chest pain that is particularly worse with coughing. Workup overnight shows 1) no PE, 2) stable AAA, 3) L>R pleural effusion with asymmetric airspace disease ?pulm edema vs. consolidation, and 4) adynamic troponin elevation. No fever or leukocytosis on presentation. Was given IV Lasix 80 mg overnight with slight improvement in his symptoms. - Exam Vitals: Temp Pulse Resp BP Pulse Ox 98.5 F 82 18 96/62 94 04/23/18 07:16 04/23/18 09:05 04/23/18 07:16 04/23/18 09:05 04/23/18 08:45 Exam: General: Alert and oriented, mild respiratory distress Cardiovascular:Normal S1 & S2, No JVD. Pulse regular. Lungs: Bibasilar Rales Abdomen:Soft, non-tender, no rigidity. Neurological:Normal cognition and motor skills. Non-focal Skin:Normal color, no rash. HD catheter site appears unremarkable without erythema or discharge - Assessment and Plan (1) Respiratory failure Current Visit: Yes Status: Acute Assessment and Plan: Acute on chronic hypoxic respiratory failure, recent admission for similar i ssues attributed to COPD exacerbation with PNA, decompensated heart failure in the setting of ESRD. Current admisson appears to be related to fluid overload, minimal urine output after IV lasix 80mg but symptomatically better. On 5L of O2 currently (baseline 3L) troponin elevated but flat and adynamic, will trend till it peaks. EKG sinus tachy with runs of MAT noted on tele. Does not appear to be afib but will a/w for cardiology eval no wheezing on presentation, not started on steroid yet. Also did not have any fever or leukocytosis on presentation, low suspicion for PNA. Will follow with pulm Nephro consult for HD support other possibilities include PCP pneumonia (immunosuppressed), pulmonary HTN (noted to have mod pulm HTN on the last echo 02/2018). Will a/w for pulm input. obtain old records from [facility] admission pending blood and sputum cultures (2) ESRD (end stage renal disease) on dialysis Current Visit: Yes Status: Chronic Assessment and Plan: Nephrology consult placed for dialysis scheduling. Was given IV contrast for CTA yesterday K 5.7 this AM, given kayexalate in the morning monitor electrolytes Will determine the further dose of Lasix pending HD schedule (3) Troponin level elevated Current Visit: Yes Status: Acute Assessment and Plan: flat and adynamic, no concerning EKG changes. Likely related to ESRD but patient had persistent chest pain overnight. Can still be attributed to his respiratory distress cardiology input appreciated (4) Multifocal atrial tachycardia Current Visit: Yes Status: Acute Assessment and Plan: had runs of tachycardia overnight ?MAT. Does not appear to be A. fib but EKG to correlate aborted with IV metoprolol telemetry and monitor (5) Shiloh's granulomatosis (granulomatosis with polyangiitis) Current Visit: Yes Status: Chronic Assessment and Plan: diagnosed in 08/2017, was transferred to [facility] for immunosuppresive therapy when he developed DAH Was discharged with steroid on 03/29 but patient is not sure whether he is still staking it or not obtain old records from [facility] pulm consult (6) COPD (chronic obstructive pulmonary disease) with chronic bronchitis Current Visit: Yes Status: Chronic Assessment and Plan: no evidence of exacerbation on presentation resume home inhalers PRN duoneb (7) AAA (abdominal aortic aneurysm) Current Visit: Yes Status: Chronic Assessment and Plan: CTA shows stable AAA without dissection (8) Anemia Current Visit: Yes Status: Chronic Assessment and Plan: Chronic; stable. AOCD. (9) Obesity (BMI 30-39.9) Current Visit: Yes Status: Chronic Assessment and Plan: Weight loss advised. DVT Prophylaxis: Subcutaneous heparin - Time Spent with Patient Total time spent is greater than 50% in coordination of care (as documented) at patient's floor/unit and/or counseling patient: Greater than 35 minutes (Discussed with both Nephrology and Pulmonary in detail) Plan of Care Discussed with: patient Internal Medicine: Result - Labs CBC & Chem 7: 04/23/18 03:28 04/23/18 03:28 Labs: Short CBC 04/22/18 04/23/18 Range/Units 14:38 03:28 WBC 7.9 7.9 (4.3-11.1) K/mcL Hgb 11.8 L 9.8 L D (12.9-16.9) g/dL Hct 41.0 33.5 L (37.5-50.1) % Plt Count 215 214 (140-400) K/mcL Neutrophils # 6.1 6.3 (1.6-8.9) K/mcL BMP 04/22/18 04/23/18 14:38 03:28 Sodium 138 133 L Potassium 5.0 5.7 H Chloride 102 99 Carbon Dioxide 20 L 20 L BUN 52 H 57 H Creatinine 7.88 H 8.55 H Glucose 109 H 92 Calcium 8.7 8.2 L Cardiac Enzymes 04/22/18 04/22/18 04/23/18 Range/Units 14:38 20:42 03:28 Troponin I 0.21 H* 0.23 H* 0.25 H* (< 0.04) ng/mL - ABG Interpretation ABG results: PT/INR, D-dimer PT 14.2 Seconds (9.4-12.1) H 04/22/18 14:38 D-Dimer [id number] ng/mLFEU (0-500) H 04/22/18 14:38 - Impressions Impressions Chest X-Ray 04/22/18 13:34 IMPRESSION: 1. Interval increase in the left midlung pulmonary opacity may represent atelectasis, edema, and/or pneumonia. Recommend radiographic follow-up to complete resolution. 2. Interval improvement in left lower lobe pulmonary opacity likely reflects improving left pleural effusion. 3. Persistently enlarged but unchanged cardiomediastinal silhouette. D/ / Mason Avila MD / Mason Avila MD Interpreting Provider: Mason Avila MD Pulmonary Perfusion Imaging 04/22/18 16:49 IMPRESSION: Low probability for pulmonary embolism. D/ / Travis Quezada MD / Travis Quezada MD Interpreting Provider: Travis Quezada MD Abdomen/Pelvis CTA 04/22/18 20:12 IMPRESSION: No substantial interval change in size of infrarenal abdominal aortic aneurysm. Given size, recommend follow-up imaging every 6 months, as previously described. Fat stranding in the left lower quadrant along the left common/internal and external iliac vascular bundles is increased compared with prior exams. This is of indeterminate etiology and may be reassessed on follow-up. Cardiomegaly with bilateral pleural effusions, left greater than right. Asymmetric airspace disease superimposed on background emphysema is favored to represent pulmonary edema given other features of volume overload/heart failure. Infection a possibility in the appropriate clinical context. D/ / John Goldstein / John Goldstein Interpreting Provider: John Goldstein Chest CTA 04/22/18 20:12 IMPRESSION: No substantial interval change in size of infrarenal abdominal aortic aneurysm. Given size, recommend follow-up imaging every 6 months, as previously described. Fat stranding in the left lower quadrant along the left common/internal and external iliac vascular bundles is increased compared with prior exams. This is of indeterminate etiology and may be reassessed on follow-up. Cardiomegaly with bilateral pleural effusions, left greater than right. Asymmetric airspace disease superimposed on background emphysema is favored to represent pulmonary edema given other features of volume overload/heart failure. Infection a possibility in the appropriate clinical context. D/ / John Goldstein / John Goldstein Interpreting Provider: John Goldstein Consult Discharge Plan - Plan Referrals: NONE,PCP [Primary Care Provider] - (1) Respiratory failure Qualifiers: Chronicity: acute on chronic Respiratory failure complication: hypoxia Qualified Code(s): J96.21 - Acute and chronic respiratory failure with hypoxia (7) AAA (abdominal aortic aneurysm) Qualifiers: Presence of rupture: without rupture Qualified Code(s): I71.4 - Abdominal aortic aneurysm, without rupture (8) Anemia Qualifiers: Anemia type: due to chronic kidney disease Chronic kidney disease stage: on chronic dialysis Qualified Code(s): N18.6 - End stage renal disease; D63.1 - Anemia in chronic kidney disease; Z99.2 - Dependence on renal dialysis
[2018-04-23 11:05] LABS: Calcium 8.1 mg/dL (8.6-10.3); Potassium 6.2 mEq/L (3.5-5.1)
[2018-04-23] MEDS: Beclomethasone 80mcg MDI IH SCH ×2 (11:17→22:32)
[2018-04-23] MEDS: Tiotropium 18 MCG inhalation IH SCH (11:17)
[2018-04-23] MEDS: Acetaminophen 325 MG TABLET PO PRN ×2 (11:43→21:35)
--- NOTE | 2018-04-23 11:57 | Cardiology Consult Note ---
Addendum entered and electronically signed by Karishma Kwan MD 04/23/18 12:40: I have personally performed a face to face evaluation on this patient. I have reviewed and agree with the care plan. History and Exam by me shows: Pt seen/evaluated. CP pleuritic. Has had recent hemoptysis. Agree with pulmonary evaluation. Overnight telemetry had tachyarrhythmia- difficult to tell if MAT or a fib due to baseline artifact. Recommend EKG if recurrent ta chyarrhythmia. Will follow. Original Note: Date of Encounter: 04/23/18 Time of Encounter: 09:00 Assessment and Plan (1) Acute and chronic respiratory failure Current Visit: No Status: Acute Per cardiology: -ADmitted with acute on chronic respiratory failure. -Management per primary service. Qualifiers: Respiratory failure complication: hypoxia Qualified Code(s): J96.21 - Acute and chronic respiratory failure with hypoxia (2) PAF (paroxysmal atrial fibrillation) Current Visit: Yes Status: Acute Per cardiology: -PAF vs. MAT noted on telemetry overnight. Unable to rule out a.fib. -Recommend ECG if has recurrence of tachyarrythmia. -[id number] score 2 (age, HTN). Ideally would recommend anticoagulation, however anemia noted and reports hemoptysis. -On BB. -Currently SR, HRs 70s. -ECG if has recurrence of tachyarrythmia. -Further recommendations pending clinical course. (3) Anemia Current Visit: Yes Status: Chronic Per cardiology: -Known chronic anemia. -Hgb admission 11.8, down trended to 9.8. -Reports hemoptysis. -will repeat Hgb at 1200. -Management per primary service. Qualifiers: Anemia type: due to chronic kidney disease Chronic kidney disease stage: on chronic dialysis Qualified Code(s): N18.6 - End stage renal disease; D63.1 - Anemia in chronic kidney disease; Z99.2 - Dependence on renal dialysis (4) Troponin level elevated Current Visit: Yes Status: Acute Per cardiology: -Troponins 0.21, 0.23, 0.25, 0.26 in the setting of ESRD, repsiratory failure. -Reports atypical, pleuritic chest pain. -No acute ischemic ECG changes noted. -TTE 03/14/18 with LVEF 55-60%, mild concentric LVH, mild diastolic dysfunction, moderately dilated LA, mild TR, moderate PH, small pericardial effusion. -On asa, bb, -Will add statin. -Suspect demand ischemia related to above. NO cardiac rehab consult warranted. -Further recommendations pending limited TTE. Discussion w patient/family: The assessment and plan as outlined above was discussed with the patient and/or family members who expressed understanding and agreement. All questions were answered. Thank you for involving us in the care of your patient. Please call with any questions. Discussed and reviewed with Dr.Jennifer Kwan. History of Present Illness Consult date: 04/23/18 Requesting physician: Bossman Millan Consult reason: elevated troponin Chief complaint: chest pain History of present illness: Mr. Castillo is a 67 year old male with a relevant past medical history of ESRD on HD, COPD, HTN, skin cancer, recent pneumonia, hemoptysis who presented to [facility] with complaints of left sided chest pain. Patient reports chest pain started at rest. Patient reports chest pain increases with deep breathing and cough. Denies current chest pain. Reports worsening shortness of breath. Patient reports since hospital discharge about a month ago, has still had episodes of hemoptysis. Patient denies palpitations/fluttering. Past Med Surg Social Fam HX - Past Medical History Attestation: Yes The following information was validated with the patient. Source: patient, old records reviewed Medical history: cancer, CHF, COPD, dialysis, hypertension, renal disease Additional medical history: skin cancer, hiatal hernia Psychiatric history: no psych history - Past Surgical History Additional surgical history: dialysis port in L chest - Social History Smoking Status: Former smoker Smokeless Tobacco Status: Yes Alcohol use: none Drug use: none - Family History Mother Hx Family Endocrine Disorder: Yes (DM) Father Living Status: Hx Family Respiratory Disorders: Yes Medications and Allergies Albuterol Sulfate [Ventolin Hfa] 2 puff IH Q4H 08/31/17 [History] Metoprolol [Lopressor] 25 mg PO BID 08/31/17 [History] Aspirin [Adult Aspirin] 81 mg PO DAILY 03/24/18 [History] Budesonide [Pulmicort Flexhaler 180mcg] 2 puff IH BID 03/24/18 [History] Calcium Carbonate 1,300 mg PO DAILY 03/24/18 [History] Cholecalciferol (D-3) [Vitamin D] 1,000 unit PO DAILY 03/24/18 [History] Folic Acid/Vit B Complex and C [Dialyvite Tablet] 1 tab PO DAILY 03/24/18 [History] Sevelamer [Renvela] 1,600 mg PO TID 03/24/18 [History] Tiotropium [Spiriva] 1 puff IH DAILY 03/24/18 [History] GuaiFENesin ER [Mucinex] 600 mg PO BID #60 tbbp.12hr 03/29/18 [Rx] Allergy/AdvReac Type Severity Reaction Status Date / Time Amoxicillin Allergy Rash Verified 03/10/18 13:35 Penicillins AdvReac Hives Verified 08/31/17 01:38 All Systems Review: The remainder of the systems were reviewed and are negative - Cardiovascular Cardiovascular: as per HPI, chest pain at rest, dyspnea at rest, dyspnea on exertion Physical Examination Vital Signs, Last 4 Hours Temp Pulse Resp BP Pulse Ox 04/23/18 11:21 18 92 04/23/18 11:07 97.9 F 76 18 100/61 94 04/23/18 09:05 82 96/62 04/23/18 08:45 94 General: Conversant, Other (Conversational dyspnea noted. ) HEENT: Atraumatic, Normocephaly, Mucus Membranes Moist Neck: No JVD, Normal carotid pulses Cardiac: Reg Rate and Rhythm, Normal S1 and S2, No Murmur Lungs: Other (Lung sounds with inspiratory wheezes noted throughout. ) Neuro: Alert and responsive, No focal deficits noted Abdomen: Soft, Non-Tender Skin: No rashes noted on visualized skin Musculoskeletal: No Chest Wall Tenderness Extremities: No Clubbing, No Cyanosis, Normal Pulses, Other (Mild bilateral pedal edema noted, non-pitting. ) Results 04/23/18 03:28 04/23/18 10:36 Lab Results Impressions Chest X-Ray 04/22/18 13:34 IMPRESSION: 1. Interval increase in the left midlung pulmonary opacity may represent atelectasis, edema, and/or pneumonia. Recommend radiographic follow-up to complete resolution. 2. Interval improvement in left lower lobe pulmonary opacity likely reflects improving left pleural effusion. 3. Persistently enlarged but unchanged cardiomediastinal silhouette. D/ / Mason Avila MD / Mason Avlia MD Interpreting Provider: Mason Avila MD Pulmonary Perfusion Imaging 04/22/18 16:49 IMPRESSION: Low probability for pulmonary embolism. D/ / Travis Quezada MD / Travis Quezada MD Interpreting Provider: Travis Quezada MD Abdomen/Pelvis CTA 04/22/18 20:12 IMPRESSION: No substantial interval change in size of infrarenal abdominal aortic aneurysm. Given size, recommend follow-up imaging every 6 months, as previously described. Fat stranding in the left lower quadrant along the left common/internal and external iliac vascular bundles is increased compared with prior exams. This is of indeterminate etiology and may be reassessed on follow-up. Cardiomegaly with bilateral pleural effusions, left greater than right. Asymmetric airspace disease superimposed on background emphysema is favored to represent pulmonary edema given other features of volume overload/heart failure. Infection a possibility in the appropriate clinical context. D/ / John Goldstein / John Goldstein Interpreting Provider: John Goldstein Chest CTA 04/22/18 20:12 IMPRESSION: No substantial interval change in size of infrarenal abdominal aortic aneurysm. Given size, recommend follow-up imaging every 6 months, as previously described. Fat stranding in the left lower quadrant along the left common/internal and external iliac vascular bundles is increased compared with prior exams. This is of indeterminate etiology and may be reassessed on follow-up. Cardiomegaly with bilateral pleural effusions, left greater than right. Asymmetric airspace disease superimposed on background emphysema is favored to represent pulmonary edema given other features of volume overload/heart failure. Infection a possibility in the appropriate clinical context. D/ / John Goldstein / John Goldstein Interpreting Provider: John Goldstein Active Medications Acetaminophen (Tylenol) 650 mg PO Q6HR PRN PRN Reason: Fever/pain Stop: 10/23/18 09:57 Last Admin: 04/23/18 11:43 Dose: 650 mg Albuterol Sulfate (Proventil Neb) 2.5 mg IH [id number] [facility]; Protocol Stop: 10/22/18 22:01 Last Admin: 04/23/18 11:18 Dose: 2.5 mg Aspirin (Aspirin Ec) 81 mg PO DAILY [facility] Stop: 10/23/18 09:01 Last Admin: 04/23/18 08:36 Dose: 81 mg Beclomethasone Dipropionate (Qvar 80 Mcg) 2 puff IH BIDR [facility]; Protocol Stop: 10/22/18 22:01 Last Admin: 04/23/18 11:17 Dose: 2 puff Calcium Carbonate (Tums) 1,000 mg PO DAILY [facility] Stop: 10/23/18 09:01 Last Admin: 04/23/18 08:36 Dose: 1,000 mg Dextrose/Water (Dextrose 50% (Syg)) 50 ml IVP ONCE ONE Stop: 04/23/18 12:16 Guaifenesin (Mucinex) 600 mg PO BID [facility] Stop: 10/22/18 21:01 Last Admin: 04/23/18 08:36 Dose: 600 mg Heparin Sodium (Porcine) (Heparin) 5,000 unit SQ Q8HCO [facility] Stop: 10/23/18 22:01 Calcium Gluconate 1,000 mg/ (Sodium Chloride) 110 mls @ 220 mls/hr IVPB ONCE ONE Stop: 04/23/18 12:39 Insulin Human Regular 10 unit/ (Sodium Chloride) 10.1 mls @ 1,212 mls/hr IV ONCE ONE Stop: 04/23/18 12:16 Metoprolol Tartrate (Lopressor) 25 mg PO BID [facility] Stop: 10/22/18 21:01 Last Admin: 04/23/18 09:03 Dose: Not Given Multivitamins/Calcium (Thera M Plus) 1 tab PO DAILY [facility] Stop: 10/23/18 09:01 Last Admin: 04/23/18 08:36 Dose: 1 tab Nitroglycerin (Nitroglycerin) 0.4 mg SL Q5MIN PRN PRN Reason: Chest Pain Stop: 10/22/18 21:38 Last Admin: 04/22/18 22:01 Dose: 0.4 mg Sevelamer HCl (Renvela) 1,600 mg PO TIDWM [facility] Stop: 10/23/18 08:01 Last Admin: 04/23/18 11:43 Dose: 1,600 mg Tiotropium [place] (Spiriva) 18 mcg IH DAILYR [facility] Stop: 10/23/18 10:01 Last Admin: 04/23/18 11:17 Dose: 18 mcg Vitamin D (Vitamin D) 1,000 unit PO DAILY [facility] Stop: 10/23/18 09:01 Last Admin: 04/23/18 08:36 Dose: 1,000 unit Laboratory Tests 04/22/18 04/22/18 04/22/18 14:38 14:38 20:42 Hgb 11.8 L Potassium Creatinine Magnesium Troponin I 0.21 H* 0.23 H* 04/23/18 04/23/18 04/23/18 03:28 03:28 10:36 Hgb 9.8 L D Potassium 5.7 H Creatinine 8.55 H Magnesium 1.8 Troponin I 0.25 H* 0.26 H* - Imaging and Cardiology Chest Xray: report reviewed Echo: pending - EKG Interpretation EKG results cardiology: personally reviewed (ECG with SR, HR 80. Non-specific T wave abnormalities noted, similar to baseline.), other (Telemetry reviewed with average HR previous 12 hours noted to be 92, SR. PAF noted.) Consult Discharge Plan - Plan Referrals: NONE,PCP [Primary Care Provider] -
[2018-04-23] MEDS ORDERED: *HR* Dextrose 50 % in Water (Syg) 50 ML SYRINGE IVP ONE (12:15)
[2018-04-23] MEDS ORDERED: Insulin Human Regular 10 UNIT in 0.9 % Sodium Chloride 10 ML IV ONE (12:15)
[2018-04-23 12:27] LABS: Troponin I 0.26 ng/mL (< 0.04)
[2018-04-23 13:02] LABS: Hematocrit 32.8 % (37.5-50.1); Hemoglobin 10.1 g/dL (12.9-16.9)
[2018-04-23] MEDS ORDERED: *HR* Heparin 10,000 UNIT/10 ML VIAL IV PRN (13:39)
[2018-04-23] MEDS ORDERED: 0.9 % Sodium Chloride 250 ML IVC PRN (13:39)
[2018-04-23] MEDS ORDERED: 0.9 % Sodium Chloride 1,000 ML PRIME SCH (13:45)
[2018-04-23 15:12] LABS: Hepatitis B Surface Antibody 0.51 mIU/mL; Hepatitis B Surface Antigen Nonreactive (Nonreactive)
[2018-04-23] MEDS ORDERED: 0.9 % Sodium Chloride 1,000 ML ONE (16:28)
[2018-04-23] MEDS: *HR* Heparin 5,000 UNIT/ML VIAL SQ SCH (21:35)
[2018-04-24] MEDS: Albuterol 2.5 MG/3 ML NEBULIZER IH SCH ×4 (04:04→21:44)
[2018-04-24] MEDS: *HR* Heparin 5,000 UNIT/ML VIAL SQ SCH ×3 (05:05→21:13)
[2018-04-24 06:04] LABS: Hematocrit 29.4 % (37.5-50.1); Hemoglobin 8.8 g/dL (12.9-16.9); Mean Corpuscular HGB Conc 29.9 g/dL (31.6-35.5); Mean Corpuscular Hemoglobin 27.2 pg (28.0-33.3); Mean Platelet Volume 9.6 fL (9.4-12.4); Platelet Count 188 K/mcL (140-400); Red Blood Count 3.23 M/mcL (4.19-5.50); Red Cell Distribution Width 18.5 % (11.5-14.5)
[2018-04-24 06:20] LABS: Calcium 8.1 mg/dL (8.6-10.3); Potassium 4.5 mEq/L (3.5-5.1)
[2018-04-24] MEDS ORDERED: 0.9 % Sodium Chloride 2,000 ML ONE (07:43)
[2018-04-24] MEDS ORDERED: *HR* Heparin 10,000 UNIT/10 ML VIAL IV PRN (08:07)
[2018-04-24] MEDS ORDERED: 0.9 % Sodium Chloride 250 ML IVC PRN (08:07)
[2018-04-24] MEDS ORDERED: 0.9 % Sodium Chloride 1,000 ML PRIME SCH (08:15)
[2018-04-24] MEDS: Renal Vitamin 1 CAP CAPSULE PO SCH (09:38)
[2018-04-24] MEDS: Aspirin Enteric Coated 81 MG Tablet PO SCH (09:38)
[2018-04-24] MEDS: Cholecalciferol (D-3) 1,000 UNIT TABLET PO SCH (09:38)
--- NOTE | 2018-04-24 10:33 | Cardiology Progress Note ---
Date of Encounter: 04/24/18 Time of Encounter: 08:00 Assessment and Plan (1) Acute and chronic respiratory failure Current Visit: No Status: Acute Per cardiology: -Admitted with acute on chronic respiratory failure. -Management per primary service. Qualifiers: Respiratory failure complication: hypoxia Qualified Code(s): J96.21 - Acute and chronic respiratory failure with hypoxia (2) PAF (paroxysmal atrial fibrillation) Current Visit: Yes Status: Acute Per cardiology: -PAF vs. MAT noted on telemetry Unable to rule out a.fib. -Recommend ECG if has recurrence of tachyarrythmia. -Hjomw2stug score 2 (age, HTN). Ideally would recommend anticoagulation, however anemia noted and reports hemoptysis. -On BB, average HR previous 12 hours 96, controlled. -Currently SR, HRs 70s. -ECG if has recurrence of tachyarrythmia. -Continue BB. -Discussed and reviewed with , Regarding anticoagulation, patient has chronic anemia, however hemoglobins have been labile and patient continues to report hemoptysis. Discussed addition of care home anticoagulation with patient and , patient is hesitant to start at this time due to hemoptysis, reports upcoming bronchoscopy. Patient also reports no previous GI evaluation, reports was recommended for GI evaluation previously. At this time, continue ASA. 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 Patient and educated on increased risk of CVA/embolic event. -Cardiology will sign off. Will arrange outpatient follow up. (3) Anemia Current Visit: Yes Status: Chronic Per cardiology: -Known chronic anemia. -Hgb admission 11.8, down trended to 8.8 -Reports hemoptysis. -Management per primary service. Qualifiers: Anemia type: due to chronic kidney disease Chronic kidney disease stage: on chronic dialysis Qualified Code(s): N18.6 - End stage renal disease; D63.1 - Anemia in chronic kidney disease; Z99.2 - Dependence on renal dialysis (4) Troponin level elevated Current Visit: Yes Status: Acute Per cardiology: -Troponins 0.21, 0.23, 0.25, 0.26 in the setting of ESRD, repsiratory failure. -Reports atypical, pleuritic chest pain. -No acute ischemic ECG changes noted. -TTE 03/14/18 with LVEF 55-60%, mild concentric LVH, mild diastolic dysfunction, moderately dilated LA, mild TR, moderate PH, small pericardial effusion. -Repeat limited TTE this admission with LVEF 55%, mild concentric LVH, trivial pericardia effusion, pleural effusion noted, no segmental wall motion abnormalities noted. -On asa, bb, statin. -Demand ischemia related to above. NO cardiac rehab consult warranted. Discussion w patient/family: The assessment and plan as outlined above was discussed with the patient and/or family members who expressed understanding and agreement. All questions were answered. Thank you for involving us in the care of your patient. Please call with any questions. Discussed and reviewed with Subjective Principal diagnosis: respiratory failure Interval history: Patient reports feeling better today. States chest pain and shortness of breath improved after dialysis yesterday. Still reports some pleuritic chest pain with cough and deep breathing. Objective Vital Signs, Last 4 Hours Temp Pulse Resp BP Pulse Ox 04/24/18 07:55 97.9 F 91 18 102/62 92 General: Conversant, Other (Mild conversational dyspnea noted. ) HEENT: Atraumatic, Normocephaly, Mucus Membranes Moist Neck: No JVD, Normal carotid pulses Cardiac: Reg Rate and Rhythm, Normal S1 and S2, No Murmur Lungs: Other (Lung sounds diminished throughout. ) Neuro: Alert and responsive, No focal deficits noted Abdomen: Soft, Non-Tender Skin: No rashes noted on visualized skin Musculoskeletal: No Chest Wall Tenderness Extremities: No Clubbing, No Cyanosis, Normal Pulses, Other (Mild bilateral pedal edema noted, non-pitting. ) Results 04/24/18 05:13 04/24/18 05:13 Lab Results Impressions Echocardiogram Limited Views 04/23/18 08:25 Impressions: LVEF 55%. Normal LV chamber size and function. Mild concentric left ventricular hypertrophy. Atypical septal motion of unclear etiology. There is a trivial pericardial effusion present. Pleural effusion noted. Left Ventricular Wall Motion: Rest Echo Findings All wall segments showed normal motion. Findings: Study Quality * Technically adequate exam. Left Ventricle * LVEF 55%. * Normal LV chamber size and function. * Mild concentric left ventricular hypertrophy. * Atypical septal motion of unclear etiology. Aorta * Normally sized aortic root. Pericardium * There is a trivial pericardial effusion present. * There is no echocardiographic evidence of tamponade. IVC * The IVC is not well evaluated. Pleural Effusion * Pleural effusion noted. Active Medications Acetaminophen (Tylenol) 650 mg PO Q6HR PRN PRN Reason: Fever/pain Stop: 10/23/18 09:57 Last Admin: 04/23/18 21:35 Dose: 650 mg Albuterol Sulfate (Proventil Neb) 2.5 mg IH [id number] [facility]; Protocol Stop: 10/22/18 22:01 Last Admin: 04/24/18 04:04 Dose: 2.5 mg Aspirin (Aspirin Ec) 81 mg PO DAILY [facility] Stop: 10/23/18 09:01 Last Admin: 04/24/18 09:38 Dose: 81 mg Atorvastatin Calcium (Lipitor) 40 mg PO HS [facility] Stop: 10/23/18 21:01 Last Admin: 04/23/18 21:35 Dose: 40 mg Beclomethasone Dipropionate (Qvar 80 Mcg) 2 puff IH BIDR [facility]; Protocol Stop: 10/22/18 22:01 Last Admin: 04/23/18 22:32 Dose: 2 puff Calcium Carbonate (Tums) 1,000 mg PO DAILY [facility] Stop: 10/23/18 09:01 Last Admin: 04/24/18 09:38 Dose: 1,000 mg Guaifenesin (Mucinex) 600 mg PO BID [facility] Stop: 10/22/18 21:01 Last Admin: 04/24/18 09:38 Dose: 600 mg Heparin Sodium (Porcine) (Heparin) 5,000 unit SQ Q8HCO [facility] Stop: 10/23/18 22:01 Last Admin: 04/24/18 05:05 Dose: 5,000 unit Heparin Sodium (Porcine) (Heparin) 0 unit IV ONCE PRN PRN Reason: Hemodialysis Catheter Packing Sodium Chloride (0.9 % Sodium Chloride) 250 mls @ 937.5 mls/hr IVC .Q16M PRN PRN Reason: Hypotension Stop: 10/23/18 13:40 Sodium Chloride (0.9 % Sodium Chloride) 1,000 mls @ 0 mls/hr PRIME .Q0M [facility] Stop: 10/23/18 13:46 Sodium Chloride (0.9 % Sodium Chloride) 250 mls @ 937.5 mls/hr IVC .Q16M PRN PRN Reason: Hypotension Stop: 10/24/18 08:08 Sodium Chloride (0.9 % Sodium Chloride) 1,000 mls @ 0 mls/hr PRIME .Q0M [facility] Stop: 10/24/18 08:16 Metoprolol Tartrate (Lopressor) 25 mg PO BID [facility] Stop: 10/22/18 21:01 Last Admin: 04/24/18 09:33 Dose: Not Given Nitroglycerin (Nitroglycerin) 0.4 mg SL Q5MIN PRN PRN Reason: Chest Pain Stop: 10/22/18 21:38 Last Admin: 04/22/18 22:01 Dose: 0.4 mg Sevelamer HCl (Renvela) 1,600 mg PO TIDWM [facility] Stop: 10/23/18 08:01 Last Admin: 04/24/18 09:38 Dose: 1,600 mg Tiotropium [place] (Spiriva) 18 mcg IH DAILYR [facility] Stop: 10/23/18 10:01 Last Admin: 04/23/18 11:17 Dose: 18 mcg Vitamin B Complex/Vit C/Folic Acid (Renal Caps Softgel) 1 cap PO DAILY [facility] Stop: 10/24/18 09:01 Last Admin: 04/24/18 09:38 Dose: 1 cap Vitamin D (Vitamin D) 1,000 unit PO DAILY [facility] Stop: 10/23/18 09:01 Last Admin: 04/24/18 09:38 Dose: 1,000 unit Laboratory Tests 04/22/18 04/24/18 04/24/18 14:38 05:13 05:13 Hgb 11.8 L 8.8 L Potassium 4.5 - Imaging and Cardiology Chest Xray: report reviewed Echo: report reviewed - EKG Interpretation EKG results cardiology: other (Telemetry reviewed with average HR previous 12 hours noted to be 96, SR. PVCs noted.) Consult Discharge Plan - Plan Referrals: NONE,PCP [Primary Care Provider] -
[2018-04-24] MEDS: Beclomethasone 80mcg MDI IH SCH (10:36)
[2018-04-24] MEDS: Tiotropium 18 MCG inhalation IH SCH (10:36)
--- NOTE | 2018-04-24 10:58 | Internal Med Progress Note ---
Hospitalist Progress Note - Encounter Date of Encounter: 04/24/18 Time of Encounter: 08:20 - Subjective Interval History: States that his SOB slightly improved after HD yesterday. No worsening cough/sputum, fever/chills, or N/V. Still has localized left chest pain which is worse with cough. - Exam Vitals: Temp Pulse Resp BP Pulse Ox 97.9 F 91 18 102/62 92 04/24/18 07:55 04/24/18 07:55 04/24/18 07:55 04/24/18 07:55 04/24/18 07:55 Exam: General: Alert and oriented, not in distress Cardiovascular:Normal S1 & S2, No JVD. Pulse regular. Localized tenderness on palpation around L nipple. Lungs: minimal crackles at the lung bases Abdomen:Soft, non-tender, no rigidity. Neurological:Normal cognition and motor skills. Non-focal Skin:Normal color, no rash. HD catheter site appears unremarkable without erythema or discharge - Assessment and Plan (1) Respiratory failure Current Visit: Yes Status: Acute Assessment and Plan: Acute on chronic hypoxic respiratory failure, recent admission for similar issues attributed to COPD exacerbation with PNA, decompensated heart failure in the setting of ESRD. Current admisson appears to be related to fluid overload, reports mild symptomatic relief after HD yesterday troponin elevated but flat and adynamic, EKG sinus tachy with runs of MAT/afib with RVR noted on tele. Currently in [facility] pulm input appreciated: seems to be related to fluid overload rather than COPD exacerbation or PNA follow with Nephro for HD schedule please obtain discharge records from [facility] regarding outpatient follow up and immunosuppressant blood cultures NGTD Rheumatology consult regarding immunosuppressant and follow up plan (2) ESRD (end stage renal disease) on dialysis Current Visit: Yes Status: Chronic Assessment and Plan: K 5.7 -> 6.2 yesterday, underwent HD yesterday K 4.5 today HD per nephro, appreciate input (3) Troponin level elevated Current Visit: Yes Status: Acute Assessment and Plan: flat and adynamic, no concerning EKG changes. Likely related to ESRD and demand ischemia. cardiology input appreciated continue ASA, bb, statin (4) Multifocal atrial tachycardia Current Visit: Yes Status: Suspected Assessment and Plan: had runs of tachycardia on 04/22 ?MAT. Does not appear to be A. fib but no EKG to correlate AC discussed with the family and cardiology -> defer for outpatient follow up aborted with IV metoprolol at that time, no further runs noted continue telemetry and monitor (5) Shiloh's granulomatosis (granulomatosis with polyangiitis) Current Visit: Yes Status: Chronic Assessment and Plan: diagnosed in 08/2017, was transferred to [facility] for immunosuppresive therapy when he developed DAH Was discharged with steroid on 03/29 but patient is not sure whether he is still taking it or not will need d/c record from [facility] to determine the dose of immunosuppressant as well as outpatient follow up nevertheless, pt has trouble making to the appointment at [facility] rheum consult placed (6) COPD (chronic obstructive pulmonary disease) with chronic bronchitis Current Visit: Yes Status: Chronic Assessment and Plan: no evidence of exacerbation on presentation resume home inhalers PRN duoneb (7) AAA (abdominal aortic aneurysm) Current Visit: Yes Status: Chronic Assessment and Plan: CTA shows stable AAA without dissection (8) Anemia Current Visit: Yes Status: Chronic Assessment and Plan: Chronic; stable. AOCD. (9) Obesity (BMI 30-39.9) Current Visit: Yes Status: Chronic Assessment and Plan: Weight loss advised. DVT Prophylaxis: Subcutaneous heparin - Time Spent with Patient Total time spent is greater than 50% in coordination of care (as documented) at patient's floor/unit and/or counseling patient: Plan of Care Discussed with: patient (Also discussed with Rheumatology) Internal Medicine: Result - Labs CBC & Chem 7: 04/24/18 05:13 04/24/18 05:13 Labs: Short CBC 04/23/18 04/24/18 Range/Units 12:34 05:13 WBC 5.8 (4.3-11.1) K/mcL Hgb 10.1 L 8.8 L (12.9-16.9) g/dL Hct 32.8 L 29.4 L (37.5-50.1) % Plt Count 188 (140-400) K/mcL BMP 04/23/18 04/23/18 04/24/18 10:36 17:59 05:13 Sodium 132 L 136 Potassium 6.2 H 4.1 D 4.5 Chloride 99 97 L Carbon Dioxide 19 L 28 BUN 64 H 41 H Creatinine 9.52 H 6.50 H Glucose 114 H 101 Calcium 8.1 L 8.1 L Cardiac Enzymes 04/23/18 Range/Units 10:36 Troponin I 0.26 H* (< 0.04) ng/mL - ABG Interpretation ABG results: PT/INR, D-dimer PT 14.2 Seconds (9.4-12.1) H 04/22/18 14:38 D-Dimer 02571 ng/mLFEU (0-500) H 04/22/18 14:38 - Impressions Impressions Echocardiogram Limited Views 04/23/18 08:25 Impressions: LVEF 55%. Normal LV chamber size and function. Mild concentric left ventricular hypertrophy. Atypical septal motion of unclear etiology. There is a trivial pericardial effusion present. Pleural effusion noted. Left Ventricular Wall Motion: Rest Echo Findings All wall segments showed normal motion. Findings: Study Quality * Technically adequate exam. Left Ventricle * LVEF 55%. * Normal LV chamber size and function. * Mild concentric left ventricular hypertrophy. * Atypical septal motion of unclear etiology. Aorta * Normally sized aortic root. Pericardium * There is a trivial pericardial effusion present. * There is no echocardiographic evidence of tamponade. IVC * The IVC is not well evaluated. Pleural Effusion * Pleural effusion noted. Consult Discharge Plan - Plan Referrals: NONE,PCP [Primary Care Provider] - __ (1) Respiratory failure Qualifiers: Chronicity: acute on chronic Respiratory failure complication: hypoxia Qualified Code(s): J96.21 - Acute and chronic respiratory failure with hypoxia (7) AAA (abdominal aortic aneurysm) Qualifiers: Presence of rupture: without rupture Qualified Code(s): I71.4 - Abdominal aortic aneurysm, without rupture (8) Anemia Qualifiers: Anemia type: due to chronic kidney disease Chronic kidney disease stage: on chronic dialysis Qualified Code(s): N18.6 - End stage renal disease; D63.1 - Anemia in chronic kidney disease; Z99.2 - Dependence on renal dialysis
--- NOTE | 2018-04-24 11:16 | Rheumatology Consult Note ---
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: Yes Status: Chronic Biopsy proven GPA Requested biopsy report from [facility] Associated pulmonary issues Unclear whether inflammatory vs flulid imbalance vs diastolic heart failure Will start course of prednisone Repeat ANCA Ordered quantiferon gold TB test (2) Pleural effusion Current Visit: Yes Status: Acute Reviewed pulmonology note Seems to be persistent from last admission Could be 2/2 ESRD (3) ESRD (end stage renal disease) on dialysis Current Visit: Yes Status: Acute Followed by nephrology On hemodialysis Cr 6.50 today, down from 7.88 on admission Rheumatology HPI Consult date: 04/24/18 Requesting physician: Esvin Holland Consult reason: History of granulomatosis with polyangiitis, kidney and pu lmonary issues Chief complaint: Chest pain, shortness of breath History of present illness: Mr. Castillo is a 67 year old male with PMHx of ESRD on hemodialysis, COPD, AAA, and recent diagnosis of granulomatosis with polyangiitis (GPA). Patient was re cently treated 3 weeks ago for pneumonia. He presented again for chest pain and shortness of breath. In ED, patient had elevated D-dimer, BNP, and troponin. Rheumatology consulted due to patient's history of biopsy proven GPA along with persistent pulmonary and renal issues. Patient seen and examined. He was at [facility] in August 2017, when he developed diffuse alveolar hemorrhage in the setting of an JONATAN and was transferred to [facility]. Patient had a kidney biopsy, which was positive for GPA. Patient states he was discharged with some medications, but he can't remember their name. He thinks he still takes them at home. He has not followed up with any of the [facility] physicians because he doesn't have transportation. Patient states his chest pain and SOB are slightly improved. He denies hemoptysis, epistaxis, abdominal pain, nausea, vomiting, numbness/tingling. Past Med Surg Social Fam HX - Past Medical History Medical history: cancer, CHF, COPD, dialysis, hypertension, renal disease Additional medical history: skin cancer, hiatal hernia Psychiatric history: no psych history - Past Surgical History Additional surgical history: dialysis port in L chest - Social History Smoking Status: Former smoker Smokeless Tobacco Status: Yes Alcohol use: none Drug use: none - Family History Father Living Status: Hx Family Respiratory Disorders: Yes Mother Hx Family Endocrine Disorder: Yes (DM) Medications and Allergies RX: Metoprolol [Lopressor] 25 mg PO BID 08/31/17 [History] RX: Aspirin [Adult Aspirin] 81 mg PO DAILY 03/24/18 [History] RX: Budesonide [Pulmicort Flexhaler 180mcg] 2 puff IH BID 03/24/18 [History] RX: Calcium Carbonate 1,300 mg PO DAILY 03/24/18 [History] RX: Cholecalciferol (D-3) [Vitamin D] 1,000 unit PO DAILY 03/24/18 [History] RX: Folic Acid/Vit B Complex and C [Dialyvite Tablet] 1 tab PO DAILY 03/24/18 [History] RX: Sevelamer [Renvela] 1,600 mg PO TID 03/24/18 [History] RX: Tiotropium [Spiriva] 1 puff IH DAILY 03/24/18 [History] RX: GuaiFENesin ER [Mucinex] 600 mg PO BID #60 tbbp.12hr 03/29/18 [Rx] 3 Allergy/AdvReac Type Severity Reaction Status Date / Time Amoxicillin Allergy Rash Verified 03/10/18 13:35 Penicillins AdvReac Hives Verified 08/31/17 01:38 All Systems Review: The remainder of the systems were reviewed and are negative Rheumatology Exam Vital Signs, Last 4 Hours Temp Pulse Resp BP Pulse Ox 04/24/18 07:55 97.9 F 91 18 102/62 92 Exam: Constitutional: no acute distress, temp 98.2, HR 91, BP 102/62, Eyes: no scleral injection, PERRLA Respiratory: no accessory muscle use, crackles in lung bases bilaterally Cardiovascular: RRR with no murmurs, +2 pedal pulses bilaterally Abdomen: non-tender, no hepatosplenomegaly noted Musculoskeletal: +2 pitting edema in lower extremities bilaterally 2/3 up legs, no cyanosis in LE Skin: no rashes noted, no skin tightening noted Neurologic: CN II-XII intact, intact sensation to touch in bilateral LE and UE Psychiatric: good insight to condition, A&O x3, normal affect Rheumatology Results 04/24/18 05:13 04/24/18 05:13 All other labs normal. Consult Discharge Plan - Plan Referrals: NONE,PCP [Primary Care Provider] - <Clifford Ayala - Last Filed: 04/24/18 17:01> Date of Encounter: 04/24/18 Rheumatology HPI History of present illness: Mr. Castillo is a 67 year old male All Systems Review: The remainder of the systems were reviewed and are negative Rheumatology Exam Vital Signs, Last 4 Hours Temp Pulse Resp BP Pulse Ox 04/24/18 15:59 97.7 F 96 18 101/58 91 04/24/18 15:22 18 91 04/24/18 14:10 98.1 F 15 121/52 04/24/18 14:00 109/60 04/24/18 13:45 110/57 04/24/18 13:30 124/61 04/24/18 13:15 107/57 04/24/18 13:00 123/51 Rheumatology Results 04/24/18 05:13 04/24/18 05:13 All other labs normal. - Attending Attestation I examined this patient and my medical decision making was reviewed with the resident physician. I agree with the documented findings, disposition and treatment as described with these exceptions. Paul Castillo is a 67-year-old male with PMH of ESRD on HD from GPA, COPD, AAA who presents to [facility] with chest pain. Chart Review from here and [facility]: 09/14 Abd pain, nausea/vomiting. Renal failure. CT abd chest - pulmonary nodules, tree-in-bud infiltrate in lung bases, ground glass and consolidated opacities. He was transferred due to epistaxis and worsening hypoxia. Kidney biopsy 09/02/17. Note from Dr. Shelby Grant at [facility] reports biopsy-proven active crescentic and necrotizing GN. He was to be placed on prednisone and Cytoxan at that time. 03/16 CT Chest Increasing multifocal airspace abnormalities with pleural effusions. Pulm consulted and suspected COPD exacerbation secondary to pneumonia complicated by CHF in ESRD. Was given prednisone during hospitalization. From 09/14 04/16 Blood cultures, sputum cultures have been negative. 04/16 - Current admission, pleuritic pain, pulmonary edema. Suspect fluid overload and diastolic heart failure. At this time, he reports some pleuritic chest pain. Denies hemoptysis, epistaxis, rashes, swelling of joints. Exam - Lung sounds clear and reduced on lower left. Pitting edema to lower extremities with some ecchymosis noted. 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 Paul is unclear in regards to his treatment, but in review of the notes, he has not followed up with [facility] Rheum or nephrology since 08/2017. Though cyclophosphamide was recommended, I am not certain he took this and neither is Paul. His renal function is now dependent on HD. I reviewed his case with his covering physical science aide and also with Dr. Jones. In review of his CT, no evidence clinically for pulmonary hemorrhage. I discussed with his horticultural specialty grower field and they believe most of the findings were best explained by fluid overload. No evidence right now for obvious activity from GPA, though given the severity and unpredictability of this condition, I do believe he needs to be on some sort of therapy. I discussed with his internal medicine hospitalist, Dr. Rios and I did recommend prednisone 20 mg daily at this time. I will follow-up with him in clinic to discuss the possibility of maintenance immunosuppression. Will add Quantiferon gold, core HBV antibody, TPMT levels and ANCA titers.
[2018-04-24] MEDS: Acetaminophen 325 MG TABLET PO PRN ×2 (16:02→23:17)
--- NOTE | 2018-04-24 19:19 | Nephrology Progress Note ---
Date of Encounter: 04/24/18 Time of Encounter: 12:00 - Assessment and Plan (1) ESRD (end stage renal disease) on dialysis Current Visit: Yes Status: Chronic Continue HD with UF as tolerated with goal of 2kg making 4kg in the past 2 days. Doubt pt's current pulm issues are all pulm edema related as would have resolved completely after 4kg UF. Lytes stable Continue renal diet (2) Shiloh's granulomatosis (granulomatosis with polyangiitis) Current Visit: Yes Status: Chronic Appreciate rheumatology recs. Pt was to followup at [facility] for further care but never did Agree with steroid use if needed but recall pulsed steroid performed at [facility] but apparently did not continue outpatient meds (3) Acute and chronic respiratory failure Current Visit: No Status: Acute Improved but pulm issues still concerning especially the pleuritic chest pain which is not fluid overload related Qualifiers: Respiratory failure complication: hypoxia Qualified Code(s): J96.21 - Acute and chronic respiratory failure with hypoxia (4) Anemia Current Visit: Yes Status: Chronic Hgb noted dropping, etiology unclear. Qualifiers: Anemia type: due to chronic kidney disease Chronic kidney disease stage: on chronic dialysis Qualified Code(s): N18.6 - End stage renal disease; D63.1 - Anemia in chronic kidney disease; Z99.2 - Dependence on renal dialysis Subjective Principal diagnosis: respiratory failure Interval history: Pt seen and examined on HD reports feeling chest tightness present since admission and worse with inspiration. s/p HD yesterday as well for hyperkalemia with UF of 2 kg. CTA chest and abd/pelvis reviewed. Objective - Vital Signs Vital signs: Vital Signs Temp Pulse Resp BP Pulse Ox 04/24/18 18:56 97.6 F 68 16 96/57 95 04/24/18 15:59 97.7 F 96 18 101/58 91 04/24/18 15:22 18 91 04/24/18 14:10 98.1 F 15 121/52 04/24/18 14:00 109/60 04/24/18 13:45 110/57 04/24/18 13:30 124/61 04/24/18 13:15 107/57 04/24/18 13:00 123/51 04/24/18 12:45 128/58 04/24/18 12:30 115/63 04/24/18 12:15 117/63 04/24/18 12:00 111/57 04/24/18 11:45 104/62 04/24/18 11:30 113/60 04/24/18 11:15 110/54 04/24/18 11:00 110/54 04/24/18 10:45 120/62 04/24/18 10:30 98.2 F 15 100/56 04/24/18 07:55 97.9 F 91 18 102/62 92 04/24/18 04:13 97.8 F 103 18 100/51 90 04/24/18 04:05 14 90 04/23/18 23:23 97.6 F 106 18 101/58 91 04/23/18 22:32 18 90 04/23/18 21:51 100 04/23/18 19:24 98.5 F 93 17 95/53 93 Intake and Output 04/24/18 04/24/18 04/24/18 07:59 15:59 23:59 Intake Total 200 / 200 840 / 840 100 / 100 Output Total 0 / 0 2600 / 2600 Balance 200 / 200 -1760 / -1760 100 / 100 Intake: Oral 200 / 200 240 / 240 100 / 100 Intake, Rinseback and Flushes 600 / 600 Output: Urine 0 / 0 0 / 0 Total Dialysis (HD) Output 2600 / 2600 Other: Meal Breakfast Percent of Meal Consumed 100% Hemodialysis Net Fluid Removed 2000 (mL) - General Appearance General appearance: Present: chronically ill EENT: Present: ATNC, mucous membranes moist Neck: Present: no JVD, supple Additional Comments: good areation ant bilat Cardiology: Present: edema (trace LE bilat), normal S1, normal S2 bruit: Yes Gastrointestinal: Present: no tenderness, no guarding Integumentary: Present: warm and dry Neurologic: Present: no focal deficit Musculoskeletal: Present: no deformities Psychiatric: Present: mood/affect appropriate, cooperative - Lab 04/24/18 05:13 04/24/18 05:13 Most recent lab results Calcium 8.1 mg/dL (8.6-10.3) L 04/24/18 05:13 Phosphorus 7.9 mg/dL (2.7-4.5) H 04/23/18 03:28 Magnesium 1.8 mg/dL (1.6-2.6) 04/23/18 03:28 Consult Discharge Plan - Plan Referrals: NONE,PCP [Primary Care Provider] -
[2018-04-24] MEDS ORDERED: *HR* Promethazine 25 MG/ML VIAL IVP PRN (20:01)
--- NOTE | 2018-04-24 21:18 | Electrocardiograph Report ---
[address] [address] Test Date: 2018-04-23 Pat Name: Paul Castillo Department: 109 Room: 2A24 Gender: M Underwriting Support Manager: : [id number] Requested By: [id number] Order Number: [id number] Reading MD: Oscar Pradhan Measurements Intervals Richards Rate: 80 P: -5 ID: [id number] QRS: 81 QRSD: 85 T: 52 QT: 363 QTc: 399 Interpretive Statements SINUS RHYTHM POSSIBLE RIGHT VENTRICULAR CONDUCTION DELAY ST DEVIATION AND MODERATE T-WAVE ABNORMALITY, CONSIDER ISCHEMIA Electronically Signed On 04-24-2018 21:16:47 EST by Oscar Pradhan
[2018-04-24] MEDS: MOMETASONE FUROATE 100 mcg Inhaler IH SCH (21:43)
[2018-04-25] MEDS: Albuterol 2.5 MG/3 ML NEBULIZER IH SCH ×3 (03:55→15:29)
[2018-04-25] MEDS: *HR* Heparin 5,000 UNIT/ML VIAL SQ SCH ×2 (05:19→14:02)
[2018-04-25 05:57] LABS: Basophils % 0.4 %; Eosinophils # 0.2 K/mcL (0.0-0.6); Eosinophils % 4.1 %; Hemoglobin 8.4 g/dL (12.9-16.9); Immature Granulocytes % 0.5 % (0-4); Lymphocytes # 0.7 K/mcL (0.6-4.6); Lymphocytes % 11.5 %; Mean Corpuscular Hemoglobin 26.9 pg (28.0-33.3); Mean Corpuscular Volume 92.9 fL (83.0-100.0); Mean Platelet Volume 9.8 fL (9.4-12.4); Monocytes # 0.7 K/mcL (0.0-1.3); Monocytes % 12.9 %; Platelet Count 230 K/mcL (140-400); Red Blood Count 3.12 M/mcL (4.19-5.50); Red Cell Distribution Width 18.7 % (11.5-14.5); Segmented Neutrophils % 70.6 %
[2018-04-25 06:16] LABS: Calcium 8.2 mg/dL (8.6-10.3); Potassium 4.3 mEq/L (3.5-5.1)
[2018-04-25] MEDS: Renal Vitamin 1 CAP CAPSULE PO SCH (07:52)
[2018-04-25] MEDS: Aspirin Enteric Coated 81 MG Tablet PO SCH (07:53)
[2018-04-25] MEDS: Cholecalciferol (D-3) 1,000 UNIT TABLET PO SCH (07:53)
--- NOTE | 2018-04-25 09:36 | Rheumatology Progress Note ---
<Hugh Cao - Last Filed: 04/25/18 10:10> Date of Encounter: 04/25/18 Time of Encounter: 09:00 Rheumatology Assess and Plan (1) Shiloh's granulomatosis (granulomatosis with polyangiitis) Status: Chronic Biopsy proven GPA Requested biopsy report from [facility] Associated pulmonary issues Unclear whether inflammatory vs flulid imbalance vs diastolic heart failure Will start course of prednisone 20 mg daily until his follow up appointment with rheumatology (approximately 2 weeks) Repeat ANCA Ordered quantiferon gold TB test Will sign off at this time and follow up as outpatient in 2 weeks (2) Pleural effusion Status: Acute Reviewed pulmonology note Seems to be persistent from last admission Could be 2/2 ESRD (3) ESRD (end stage renal disease) on dialysis Status: Acute Followed by nephrology On hemodialysis Cr 5.17 today, down from 7.88 on admission - Subjective Interval history: Patient seen and examined. He states his chest pain and shortness of breath are improving. He still has a cough. Patient denies abdominal pain, nausea, vomiting, fevers/chills, numbness/tingling. Exam Vital Signs, Last 4 Hours Temp Pulse Resp BP Pulse Ox 04/25/18 07:51 97.3 F L 92 18 91/46 92 Exam: Constitutional: no acute distress, temp 97.3, HR 92, BP 91/46, Eyes: no scleral injection, PERRLA Respiratory: no accessory muscle use, crackles in lung bases bilaterally Cardiovascular: RRR with no murmurs, +2 pedal pulses bilaterally Abdomen: non-tender, no hepatosplenomegaly noted Musculoskeletal: +2 pitting edema in lower extremities bilaterally 2/3 up legs, no cyanosis in LE Skin: no rashes noted, no skin tightening noted Neurologic: CN II-XII intact, intact sensation to touch in bilateral LE and UE Psychiatric: moderate insight to condition, A&O x3, normal affect Objective Data 04/25/18 04:44 04/25/18 04:44 All other labs normal. Consult Discharge Plan - Plan Instructions: Acute Kidney Injury (DC), Chronic Obstructive Pulmonary Disease (DC) Referrals: NONE,PCP [Primary Care Provider] - (Patient states he has a PCP and would make an appointment himself) Prescriptions: RX: Atorvastatin [Lipitor] 40 mg PO HS 30 Days #30 tablet RX: predniSONE [PredniSONE] 20 mg PO DAILY 14 Days #14 tablet <Wayne VallejoAndrewClifford W - Last Filed: 04/25/18 17:31> Date of Encounter: 04/25/18 Exam Vital Signs, Last 4 Hours Temp Pulse Resp BP Pulse Ox 04/25/18 15:45 97.8 F 93 18 102/54 91 04/25/18 15:30 18 89 Objective Data 04/25/18 04:44 04/25/18 04:44 All other labs normal. - Attending Attestation I examined this patient and my medical decision making was reviewed with the resident physician. I agree with the documented findings, disposition and treatment as described with these exceptions. Overall clinically stable. Granulomatosis with Polyangiitis - Start prednisone 20 mg. Will likely need immunosuppresive therapy to prevent further flares. Will set up outpatient follow-up within 2 weeks.
[2018-04-25] MEDS ORDERED: predniSONE 20 MG TABLET PO SCH (10:30)
[2018-04-25] MEDS: MOMETASONE FUROATE 100 mcg Inhaler IH SCH (10:42)
[2018-04-25] MEDS: Tiotropium 18 MCG inhalation IH SCH (10:43)
--- NOTE | 2018-04-25 10:50 | Internal Med Progress Note ---
Hospitalist Progress Note - Encounter Date of Encounter: 04/25/18 Time of Encounter: 10:31 - Subjective Interval History: Patient seen and examined this morning. No acute overnight events. Breathing mildly improved compared to before. No fevers, chills, diarrhea. One episode of vomiting yesterday. Complaining of on and off chest pain on the left side associated with tenderness with improvement lying on the left side. - Exam Vitals: Temp Pulse Resp BP Pulse Ox 97.3 F L 92 18 91/46 92 04/25/18 07:51 04/25/18 07:51 04/25/18 07:51 04/25/18 07:51 04/25/18 07:51 Exam: General: Alert and oriented, not in distress Cardiovascular:Normal S1 & S2, No JVD. Pulse regular. Localized tenderness on palpation around L nipple. Lungs: CTAB, No adventitious lung sounds Abdomen:Soft, non-tender, no rigidity. Neurological:Normal cognition and motor skills. Non-focal Skin:Normal color, no rash. HD catheter site appears unremarkable - Assessment and Plan (1) COPD (chronic obstructive pulmonary disease) with chronic bronchitis Current Visit: Yes Status: Chronic (2) Obesity (BMI 30-39.9) Current Visit: Yes Status: Chronic (3) Respiratory failure Current Visit: Yes Status: Acute (4) AAA (abdominal aortic aneurysm) Current Visit: Yes Status: Chronic (5) Shiloh's granulomatosis (granulomatosis with polyangiitis) Current Visit: Yes Status: Chronic (6) ESRD (end stage renal disease) on dialysis Current Visit: Yes Status: Chronic (7) Troponin level elevated Current Visit: Yes Status: Acute (8) Anemia Current Visit: Yes Status: Chronic (9) Multifocal atrial tachycardia Current Visit: Yes Status: Suspected - Summary of Assessment and Plan Summary of Assessment and Plan: Respiratory failure - Likely multifactorial from [place] and fluid overload from CHF on baseline lung disease - Some improvement after dialysis. - Nephro following for HD - Started on Prednisone by Rheumatology ESRD on dialysis -HD per nephro, appreciate input Troponin level elevated - troponin elevated but flat and adynamic, EKG sinus tachy with runs of MAT/afib with RVR noted on tele. Currently in NSR - Likely related to ESRD and demand ischemia. - continue ASA, bb, statin Multifocal atrial tachycardia - had runs of tachycardia on 04/22 MAT vs PAF - Plogd5talx score 2. AC to be reconsidered on outpatient follow up given anemia and hemoptysis - c/w Betablocker, aspirin Shiloh's granulomatosis - diagnosed in 08/2017, was transferred to [facility] for immunosuppresive therapy when he developed DAH. Biopsy proven. - Did not follow up with [facility]. - Started on Prednisone by rheum - f/u ANCA, Quantiferon gold TB test. COPD - Not in exacerbation - c/w home inhalers and PRN duoneb AAA -CTA shows stable AAA without dissection Anemia - Chronic; stable. AOCD. PT/OT pending for placement. - Time Spent with Patient Total time spent is greater than 50% in coordination of care (as documented) at patient's floor/unit and/or counseling patient: Internal Medicine: Result - Labs CBC & Chem 7: 04/25/18 04:44 04/25/18 04:44 Labs: Short CBC 04/25/18 Range/Units 04:44 WBC 5.7 (4.3-11.1) K/mcL Hgb 8.4 L (12.9-16.9) g/dL Hct 29.0 L (37.5-50.1) % Plt Count 230 (140-400) K/mcL Neutrophils # 4.0 (1.6-8.9) K/mcL BMP 04/25/18 04:44 Sodium 137 Potassium 4.3 Chloride 99 Carbon Dioxide 28 BUN 36 H Creatinine 5.17 H Glucose 86 Calcium 8.2 L - ABG Interpretation ABG results: PT/INR, D-dimer PT 14.2 Seconds (9.4-12.1) H 04/22/18 14:38 D-Dimer [id number] ng/mLFEU (0-500) H 04/22/18 14:38 Consult Discharge Plan - Plan Referrals: NONE,PCP [Primary Care Provider] - (3) Respiratory failure Qualifiers: Chronicity: acute on chronic Respiratory failure complication: hypoxia Qualified Code(s): J96.21 - Acute and chronic respiratory failure with hypoxia (4) AAA (abdominal aortic aneurysm) Qualifiers: Presence of rupture: without rupture Qualified Code(s): I71.4 - Abdominal aortic aneurysm, without rupture (8) Anemia Qualifiers: Anemia type: due to chronic kidney disease Chronic kidney disease stage: on chronic dialysis Qualified Code(s): N18.6 - End stage renal disease; D63.1 - Anemia in chronic kidney disease; Z99.2 - Dependence on renal dialysis
--- NOTE | 2018-04-25 14:49 | Discharge Summary ---
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 Need to follow up with rheumatology. We will need to discuss anticoagulation for MAT vs PAF with follow-up cardiology. Currently not started given history of hemoptysis and anemia Orders not resulted at time of discharge: Pending orders 04/22/18 13:34 ECG 12 lead ECG [ECG] Stat 04/22/18 19:27 Legionella Antigen [RM] Stat Streptococcal pneumoniae urin antigen [S. Pneumoniae Antigen] [RM] Stat 04/22/18 19:41 Culture,Blood [BC] Stat 04/24/18 14:43 Anti-Neutrophil Cyto Ab, IgG Routine Hepatitis B Core Ab Total Routine MPO/PR3 (ANCA) Antibodies Routine QuantiFERON-TB Gold In-Tube Routine 04/24/18 18:00 Thiopurine Methyltransferase Routine 04/26/18 04:00 BMP [Basic Metabolic Panel] AM 0400 Complete Blood Count w/o Diff [HEME] AM 0400 04/27/18 04:00 BMP [Basic Metabolic Panel] AM 0400 Complete Blood Count w/o Diff [HEME] AM 0400 04/28/18 04:00 BMP [Basic Metabolic Panel] AM 0400 Complete Blood Count w/o Diff [HEME] AM 0400 Date of Encounter: 04/25/18 Time of Encounter: 12:23 - Discharge Diagnosis (1) COPD (chronic obstructive pulmonary disease) with chronic bronchitis Priority: Secondary Status: Chronic (2) Obesity (BMI 30-39.9) Priority: Secondary Status: Chronic (3) Respiratory failure Priority: Primary Status: Acute Qualifiers: Chronicity: acute on chronic Respiratory failure complication: hypoxia Qualified Code(s): J96.21 - Acute and chronic respiratory failure with hypoxia (4) AAA (abdominal aortic aneurysm) Priority: Secondary Status: Chronic Qualifiers: Presence of rupture: without rupture Qualified Code(s): I71.4 - Abdominal aortic aneurysm, without rupture (5) Shiloh's granulomatosis (granulomatosis with polyangiitis) Priority: Primary Status: Chronic (6) ESRD (end stage renal disease) on dialysis Priority: Primary Status: Chronic (7) Troponin level elevated Priority: Secondary Status: Acute (8) Anemia Priority: Secondary Status: Chronic Qualifiers: Anemia type: due to chronic kidney disease Chronic kidney disease stage: on chronic dialysis Qualified Code(s): N18.6 - End stage renal disease; D63.1 - Anemia in chronic kidney disease; Z99.2 - Dependence on renal dialysis (9) Multifocal atrial tachycardia Priority: Secondary Status: Suspected Hospital course: Mr. Castillo is a 67 year old male past medical history of ESRD on HD MWF, COPD, AAA, granulomatosis with polyangiitis was recently discharged with pneumonia came in with complain of abdominal pain and chest pain and difficulty breathing. CT scan did not show any PE. Patient's symptoms were likely thought to be due to volume overload which after dialysis had some improvement in his shortness of breath. 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 Patient had biopsy-proven GPA at [facility]. Patient did not follow-up at [facility] before. Cardiology also on cell consulted who felt elevated troponin likely related to demand ischemia. Patient hyperkalemia resolved with dialysis. Patient had tachyarrhythmia thought to be due to PAF VS MAT however cardiology did not start any anticoagulation with Lusr6moiy of 2 and history of anemia and hemoptysis. Patient had some improvement in his symptomatology after volume removal. However patient's symptoms also likely from underlying Shiloh's granulomatosis. Patient was started on prednisone which would be continued for 2 weeks. Patient would follow with rheumatology after discharge. Discharge discussed with: patient, nurse, social work, case management - Time Spent with Patient Total time spent providing and/or coordinating discharge services: Greater than 30 minutes (38) - Discharge Medications Prescriptions: Atorvastatin [Lipitor] 40 mg PO HS 30 Days #30 tablet predniSONE [PredniSONE] 20 mg PO DAILY 14 Days #14 tablet Home Medications: Metoprolol [Lopressor] 25 mg PO BID 08/31/17 [History] Aspirin [Adult Aspirin] 81 mg PO DAILY 03/24/18 [History] Budesonide [Pulmicort Flexhaler 180mcg] 2 puff IH BID 03/24/18 [History] Calcium Carbonate 1,300 mg PO DAILY 03/24/18 [History] Cholecalciferol (D-3) [Vitamin D] 1,000 unit PO DAILY 03/24/18 [History] Folic Acid/Vit B Complex and C [Dialyvite Tablet] 1 tab PO DAILY 03/24/18 [History] Sevelamer [Renvela] 1,600 mg PO TID 03/24/18 [History] Tiotropium [Spiriva] 1 puff IH DAILY 03/24/18 [History] GuaiFENesin ER [Mucinex] 600 mg PO BID #60 tbbp.12hr 03/29/18 [Rx] Atorvastatin [Lipitor] 40 mg PO HS 30 Days #30 tablet 04/25/18 [Rx] predniSONE [PredniSONE] 20 mg PO DAILY 14 Days #14 tablet 04/25/18 [Rx] Allergies/Adverse Reactions: Allergy/AdvReac Type Severity Reaction Status Date / Time Amoxicillin Allergy Rash Verified 03/10/18 13:35 Penicillins AdvReac Hives Verified 08/31/17 01:38 Date of admission: 04/22/18 19:43 Primary care physician: PCP NONE Consults: 04/22/18 19:45 Consult to Nephrology [CONS] Routine Consulting Provider: [facility] Cassandra/NATASHA/DENIA/YONAS Reason for Consult: ESRD patient admitted for readmitted for hypoxic respiratory failure needs placement on dialysis schedule. Call Completed: No 04/23/18 06:14 Consult to Cardiology [CONS] Routine Comment: Consulting Provider: Card[facility] [place] Reason for Consult: Patient with ESRD on HD, granulomatosis with polyangiitis with recent hemoptysis, GI bleed and AAA presenting with atypical left sided pain in chest and abdomen, seen to have a steadily increasing serum troponin with high d-dimer. PE ruled out. EKG NSR. Appears fluid overloaded with pleural effusions. Concern for ACS? Risks/benefit of anticoagulation given history. Call Completed: No 04/23/18 09:20 Consult to Pulmonology [CONS] Routine Consulting Provider: [facility] Cassandra Reason for Consult: hx of GPA, acute on chronic hypoxic respiratory failure Call Completed: Yes 04/23/18 13:45 Consult to Dialysis [CONS] ONCE 04/24/18 08:15 Consult to Dialysis [CONS] ONCE 04/24/18 09:50 Consult to Rheumatology [CONS] Routine Consulting Provider: Clifford Ayala Reason for Consult: c-ANCA vasculitis with GN (now ESRD) and hx of difuse alveolar hemorrhage, not on immunosuppressant Call Completed: Yes 04/24/18 12:26 Consult to Occupational Therapy [CONS] Routine Comment: Evaluate, develop and implement POC Reason for Consult: acute on chronic hypoxic respiratory failure, deconditioning Does patient have active BEDREST order?: No Is patient medically & hemodynamically stable?: Yes Discharging clinician: Susan Avila - Constitutional Vitals: Temp Pulse Resp BP Pulse Ox 98.0 F 93 18 119/65 94 04/25/18 11:58 04/25/18 11:58 04/25/18 11:58 04/25/18 11:58 04/25/18 11:58 Exam: General: Alert and oriented, not in distress Cardiovascular:Normal S1 & S2, No JVD. Pulse regular. Localized tenderness on palpation around L nipple. Lungs: CTAB, No adventitious lung sounds Abdomen:Soft, non-tender, no rigidity. Neurological:Normal cognition and motor skills. Non-focal Skin:Normal color, no rash. HD catheter site appears unremarkable - Patient Status Disposition: Home Health Service Condition: Fair - Discharge Instructions Follow Up With: NONE,PCP [Primary Care Provider] -
--- NOTE | 2018-04-25 15:05 | Physician Discharge Referral ---
Home Health/Hosp Referral Info Transfer to: Home Health - Diagnosis (1) COPD (chronic obstructive pulmonary disease) with chronic bronchitis Status: Chronic (2) Obesity (BMI 30-39.9) Status: Chronic (3) Respiratory failure Status: Acute (4) AAA (abdominal aortic aneurysm) Status: Chronic (5) Shiloh's granulomatosis (granulomatosis with polyangiitis) Status: Chronic (6) ESRD (end stage renal disease) on dialysis Status: Chronic (7) Troponin level elevated Status: Acute (8) Anemia Status: Chronic (9) Multifocal atrial tachycardia Status: Suspected - Respiratory Orders Smoking Cessation: Smoking cessation has been advised. For more information, call the [place] Tobacco Quit Line at 2-056-SAMR-NOW. - Services Needed Following services are medically necessary services: Physical Therapy - Transfer Medications Prescriptions: Atorvastatin [Lipitor] 40 mg PO HS 30 Days #30 tablet predniSONE [PredniSONE] 20 mg PO DAILY 14 Days #14 tablet Home Medications: Metoprolol [Lopressor] 25 mg PO BID 08/31/17 [History] Aspirin [Adult Aspirin] 81 mg PO DAILY 03/24/18 [History] Budesonide [Pulmicort Flexhaler 180mcg] 2 puff IH BID 03/24/18 [History] Calcium Carbonate 1,300 mg PO DAILY 03/24/18 [History] Cholecalciferol (D-3) [Vitamin D] 1,000 unit PO DAILY 03/24/18 [History] Folic Acid/Vit B Complex and C [Dialyvite Tablet] 1 tab PO DAILY 03/24/18 [History] Sevelamer [Renvela] 1,600 mg PO TID 03/24/18 [History] Tiotropium [Spiriva] 1 puff IH DAILY 03/24/18 [History] GuaiFENesin ER [Mucinex] 600 mg PO BID #60 tbbp.12hr 03/29/18 [Rx] Atorvastatin [Lipitor] 40 mg PO HS 30 Days #30 tablet 04/25/18 [Rx] predniSONE [PredniSONE] 20 mg PO DAILY 14 Days #14 tablet 04/25/18 [Rx] Allergies/Adverse Reactions: Allergy/AdvReac Type Severity Reaction Status Date / Time Amoxicillin Allergy Rash Verified 03/10/18 13:35 Penicillins AdvReac Hives Verified 08/31/17 01:38 Certification: Further, I certify that my clinical findings support that this patient is homebound (i.e. absences from home require considerable and taxing effort and are for medical reasons or judaism services or infrequently or short duration when for other reasons) because: Homebound Reason: Patient requires assistance of a person or device to safely leave home Attestation: My signature below is to certify that this patient is under my care and that I, or nurse practitioner, or a physician's cardiology physician assistant working with me, has a [id number] encounter with this patient.
[2018-04-25 15:46] VITALS: BP 102/54
[2018-04-27 12:02] LABS: QuantiFERON Mitogen minus NIL 5.19 IU/mL
[2018-04-27 15:28] LABS: Myeloperoxidase Ab 0 AU/mL (0-19); Serine Protease-3 Antibody 295 AU/mL (0-19)
[2018-04-27 15:29] LABS: Hepatitis B Core Ab Total NEGATIVE (Negative)
[2018-04-27 15:34] LABS: QuantiFERON NIL 0.07 IU/mL; QuantiFERON-TB Gold In-Tube NEGATIVE (Negative)
== END 2018-04-25 17:20 | disposition home health service (06) | DRG 291 ==
LOC: EMEROOARM 13:11 → 2ANU 13:11 → SUATTDRO 19:43 → 2ANU 20:51
PROVIDERS: ADMIT Internal Medicine; ATTEND Internal Medicine